=== PATIENT | female | born 1965 | race Caucasian/White ===

== ENCOUNTER 2016-11-30 11:32 | Inpatient (IN) | payer OTHER ==
[2016-11-30] MEDS ORDERED: ALBUMIN HUMAN 25%- 100ML 200 ML IV SCH (14:05)
[2016-11-30] MEDS: NS 1000 ML 1,000 ML IV SCH (14:36)
[2016-11-30] MEDS: LASIX IVP SCH ×2 (14:37→20:32)
[2016-11-30 14:50] LABS: BILIRUBIN,URINE NEGATIVE (NEGATIVE); BLOOD/HEMOGLOBIN,URINE NEGATIVE (NEGATIVE); GLUCOSE, URINE NEGATIVE (NEGATIVE); KETONES,URINE NEGATIVE (NEGATIVE); LEUKOCYTE ESTERASE ,URINE NEGATIVE (NEGATIVE); NITRITES,URINE NEGATIVE (NEGATIVE); PROTEIN,URINE NEGATIVE (NEGATIVE); UROBILINOGEN,URINE NORMAL (NORMAL)
[2016-11-30 14:54] LABS: BASOPHILS % (AUTO) 0.6 % (0.2-1.0); EOSINOPHILS # (AUTO) 0.1 x10^3/uL (0.0-0.2); EOSINOPHILS % (AUTO) 3.8 % (0.9-2.9); HEMATOCRIT 37.4 % (36.0-47.0); HEMOGLOBIN 12.5 g/dL (12.0-16.0); LYMPHOCYTES % (AUTO) 28.3 % (21.0-51.0); MEAN CORPUSCULAR HEMOGLOBIN 28.6 pg (27.0-34.0); MEAN CORPUSCULAR HGB CONC 33.4 g/dL (33.0-35.0); MEAN CORPUSCULAR VOLUME 85.6 fL (80.0-100.0); MEAN PLATELET VOLUME 10.6 fL (7.4-11.0); MONOCYTES # (AUTO) 0.4 x10^3/uL (0.3-0.8); MONOCYTES % (AUTO) 12.4 % (0.0-13.0); NEUTROPHILS # (AUTO) 1.9 x10^3/uL (2.2-4.8); NEUTROPHILS % (AUTO) 54.9 % (42.0-75.0); PLATELET COUNT 182 X10^3/uL (150.0-450.0); RED BLOOD COUNT 4.37 X10^6/uL (3.5-5.4); RED CELL DISTRIBUTION WIDTH 14.9 % (11.6-16.5); WHITE BLOOD COUNT 3.4 X10^3/uL (3.6-10.0)
[2016-11-30 15:04] LABS: APPEARANCE,URINE CLEAR (CLEAR); BACTERIA,URINE TRACE /HPF (NEGATIVE); COLOR,URINE YELLOW (YELLOW); MUCUS,URINE FEW /HPF (NEGATIVE); RBC,URINE NONE SEEN /HPF (NEGATIVE); SQUAMOUS EPITHELIAL CELL,UR FEW /HPF (NEGATIVE)
[2016-11-30 15:08] LABS: ALANINE AMINOTRANSFERASE 44 Units/L (12-78); ALBUMIN 3.2 g/dL (3.4-5.0); ALKALINE PHOSPHATASE 159 Units/L (46-116); ASPARTATE AMINO TRANSFERASE 27 Units/L (15-37); BLOOD UREA NITROGEN 20 mg/dL (7-18); CALCIUM 7.9 mg/dL (8.5-10.1); CARBON DIOXIDE 31.3 mmol/L (21-32); CHLORIDE 109 mmol/L (98-107); COR CA(FOR HYPOALB) 8.5 mg/dL (8.5-10.1); GLUCOSE 100 mg/dL (65-99); SODIUM 145 mmol/L (136-145); TOTAL PROTEIN 6.4 g/dL (6.4-8.2); eGFR BLACK RACES 56 (>60); eGFR NON BLACK RACES 46 (>60)
[2016-11-30 15:40] VITALS: BMI 37.1
[2016-11-30] MEDS: PATIENT'S HOME MEDICATION PO SCH (20:32)
[2016-11-30] MEDS: REQUIP PO SCH (20:32)
[2016-11-30] MEDS: MICRO K EXTEN CAP 10 MEQ PO SCH (20:32)
[2016-11-30] MEDS: NEURONTIN CAP 300 MG PO SCH (22:00)
[2016-12-01] MEDS: NS 1000 ML 1,000 ML IV SCH ×2 (04:52→21:39)
[2016-12-01 05:27] LABS: BASOPHILS % (AUTO) 0.4 % (0.2-1.0); EOSINOPHILS # (AUTO) 0.1 x10^3/uL (0.0-0.2); EOSINOPHILS % (AUTO) 4.1 % (0.9-2.9); HEMATOCRIT 35.5 % (36.0-47.0); HEMOGLOBIN 11.8 g/dL (12.0-16.0); LYMPHOCYTES # (AUTO) 1.3 X10^3/uL (1.3-2.9); LYMPHOCYTES % (AUTO) 38.9 % (21.0-51.0); MEAN CORPUSCULAR HEMOGLOBIN 28.9 pg (27.0-34.0); MEAN CORPUSCULAR HGB CONC 33.3 g/dL (33.0-35.0); MEAN CORPUSCULAR VOLUME 86.8 fL (80.0-100.0); MEAN PLATELET VOLUME 10.5 fL (7.4-11.0); MONOCYTES # (AUTO) 0.4 x10^3/uL (0.3-0.8); MONOCYTES % (AUTO) 12.7 % (0.0-13.0); NEUTROPHILS # (AUTO) 1.4 x10^3/uL (2.2-4.8); NEUTROPHILS % (AUTO) 43.9 % (42.0-75.0); PLATELET COUNT 165 X10^3/uL (150.0-450.0); RED BLOOD COUNT 4.08 X10^6/uL (3.5-5.4); RED CELL DISTRIBUTION WIDTH 14.8 % (11.6-16.5); WHITE BLOOD COUNT 3.2 X10^3/uL (3.6-10.0)
[2016-12-01 05:38] LABS: ALANINE AMINOTRANSFERASE 35 Units/L (12-78); ALBUMIN 3.3 g/dL (3.4-5.0); ALKALINE PHOSPHATASE 137 Units/L (46-116); ASPARTATE AMINO TRANSFERASE 26 Units/L (15-37); BLOOD UREA NITROGEN 23 mg/dL (7-18); CALCIUM 7.9 mg/dL (8.5-10.1); CARBON DIOXIDE 31.8 mmol/L (21-32); CHLORIDE 110 mmol/L (98-107); COR CA(FOR HYPOALB) 8.5 mg/dL (8.5-10.1); CREATININE 1.17 mg/dL (0.55-1.02); GLUCOSE 98 mg/dL (65-99); SODIUM 145 mmol/L (136-145); TOTAL PROTEIN 6.1 g/dL (6.4-8.2); eGFR BLACK RACES > 60 (>60); eGFR NON BLACK RACES 52 (>60)
[2016-12-01] MEDS: SYNTHROID 75 mcg TAB PO SCH (06:03)
[2016-12-01] MEDS: NEURONTIN CAP 300 MG PO SCH ×3 (06:03→21:31)
[2016-12-01] MEDS: PATIENT'S HOME MEDICATION PO SCH ×2 (08:09→21:31)
[2016-12-01] MEDS: MICRO K EXTEN CAP 10 MEQ PO SCH ×2 (08:09→21:31)
[2016-12-01] MEDS: LASIX IVP SCH ×2 (08:10→21:30)
[2016-12-01] MEDS: ALBUMIN HUMAN 25%- 100ML 100 ML IV SCH (08:10)
--- NOTE | 2016-12-01 11:32 | DR.UPDATE ---
H&P Update History and Physical Update: WAS SEEN IN OUR OFFICE ON 11/30/16. A H&P WAS COMPLETED PRIOR TO ADMISSION. SHE HAS BEEN SEEN AND EXAMINED WITH NO CHANGES NOTED. Changes noted: NO Yes with the following:
--- NOTE | 2016-12-01 11:43 | PCM.PROG ---
Progress Note - Progress Note for Day of Date: 12/01/16 - Subjective Subjective: WAS ADMITTED FROM OUR OFFICE YESTERDAY FOR ANASARCA. SHE HAS A HISTORY OF METASTATIC LUNG CANCER. SHE IS ALERT AND ORIENTED, IN BED, ON MORNING ROUNDS. SHE IS NOTED WITH COMPLAINTS OF BILATERAL LEG PAIN AND SWELLING. ON EXAMINATION, BILATERAL LEGS ARE NOTED WITH EDEMA AND TENDERNESS TO TOUCH. LUNGS ARE CLEAR TO AUSCULTATION. VITALS THIS AM ARE 97.7-53-19-94%-93/ 46. CBC WNL EXCEPT WBC 3.2, HGB 11.8, HCT 35.5. CMP WNL EXCEPT CHLORIDE 110, BUN 23, CREATININE 1.17, GFR 52, CALCIUM 7.9, ALKALINE PHOSPHATASE 137, CRP 8.60 , TOTAL PROTEIN 6.1, ALBUMIN 3.3. WE WILL CHECK A BILATERAL VENOUS DOPPLER, CHECK SED RATE AND CRP. WE WILL RECHECK CBC AND CMP IN AM AND FOLLOW UP WITH PATIENT. - Past Medical Family Social History Past Med/Fam/Surg Hx: No changes since H&P Allergies: Allergies No Known Drug Allergies Allergy (Verified 11/30/16 15:15) - Review of Systems ROS: No change since H&P - Vital Signs and I&O's Vital Signs: Temperature 97.7 F Pulse Rate [Right Brachial] 52 Respiratory Rate 20 Blood Pressure [Right Arm] 125/53 Blood Pressure 162/84 O2 Sat by Pulse Oximetry 96 Intake and Output: Intake & Output 11/28/16 11/29/16 11/30/16 12/01/16 11:59 11:59 11:59 11:59 Intake Total 712 Output Total 200 Balance 512 - Physical Exam Oriented: Normal. negative: Time, Person, Place, Not Oriented, Unable to test, Other Eyes: Normal. negative: Blurred Vision, Diplopia, Discharge, Pain, Redness, Photophobia, Other Ear: Normal. negative: Right, Left, Swelling, Ecchymosis, Hemotypanum, Abrasion , Laceration Nose: Normal. negative: Injected, Discharge, Blood, Other Throat: Normal. negative: Tonsillar Hypertrophy, Red, Exudate, Dry, Other Respiratory: Normal. negative: Right, Left, Generalized, Superior, Inferior, Diminished, Wheezes, Rales, Rhonchi, OTHER Cardiovascular: Edema. negative: Normal, Tachycardia, Bradycardia, Irregular, S3, S4, Systolic, Diastolic, Murmur, Other : Normal. negative: Dysuria, Hematuria, Frequency, Discharge, Testicular Pain , Bleeding, , Other Auscultation: Bowel Sounds: Normal. negative: Bruit, Absent, Increased, Decreased, High Pitched, Other Palpation: Normal. negative: Spleen Enlarged, Liver Enlarged, Mass Pulsatile, Other Tenderness: Normal. negative: Diffuse, RUQ, RLQ, LUQ, LLQ, Epigastric, Periumbilical, Suprapubic, Mild, Moderate, Severe, Rebound, Guarding, Rigidity, Other Skin: Normal. negative: Decreased Turgur, Rash, Papular, Macular, Maculopapular , Vesicular, Pustular, Petechial, Red, Tender, Hot, Diaphoresis, Wound, Bruising , Ecchymosis, Other Musculoskeletal: Right, Left, Leg, Swelling, Tender. negative: Normal, Shoulder , Clavicle, Arm, Elbow, Forearm, Wrist, Hand, Hip, Thigh, Knee, Ankle, Foot, Back:Thoracic, Back:Lumbar, Back:Midline, Back:Paraspinous, Pelvis, Deformity, Pulse Deficit, Motor Deficit, Sensory Deficit, Instability, Crepitance Psychiatric: Normal. negative: Anxiety, Depression, Agitation, Other Mood Description: Calm. negative: Angry, Apathetic, Depressed, Fearful, Flat, Happy, Hostile, Sad, Suspicious, Withdrawn, Anxious, Appropriate, Labile Affect: Normal. negative: Angry, Anxious, Depressed, Flat, Hysterical, Quiet, Violent Speech Pattern: Clear, Appropriate - Laboratory and Diagnostics Result Diagrams: 12/01/16 03:27 12/01/16 03:27 Labs: Laboratory WBC 3.2 X10^3/uL (3.6-10.0) L 12/01/16 03:27 RBC 4.08 X10^6/uL (3.5-5.4) 12/01/16 03:27 Hgb 11.8 g/dL (12.0-16.0) L 12/01/16 03:27 Hct 35.5 % (36.0-47.0) L 12/01/16 03:27 MCV 86.8 fL (80.0-100.0) 12/01/16 03:27 MCH 28.9 pg (27.0-34.0) 12/01/16 03:27 MCHC 33.3 g/dL (33.0-35.0) 12/01/16 03:27 RDW 14.8 % (11.6-16.5) 12/01/16 03:27 Plt Count 165 X10^3/uL (150.0-450.0) 12/01/16 03:27 MPV 10.5 fL (7.4-11.0) 12/01/16 03:27 Neut % 43.9 % (42.0-75.0) 12/01/16 03:27 Lymph % 38.9 % (21.0-51.0) 12/01/16 03:27 [place] % 12.7 % (0.0-13.0) 12/01/16 03:27 Eos % 4.1 % (0.9-2.9) H 12/01/16 03:27 Baso % 0.4 % (0.2-1.0) 12/01/16 03:27 Neut # 1.4 x10^3/uL (2.2-4.8) L 12/01/16 03:27 Lymph # 1.3 X10^3/uL (1.3-2.9) 12/01/16 03:27 [place] # 0.4 x10^3/uL (0.3-0.8) 12/01/16 03:27 Eos # 0.1 x10^3/uL (0.0-0.2) 12/01/16 03:27 Baso # 0.0 X10^3/uL (0.0-0.1) 12/01/16 03:27 Absolute Nucleated RBC 0.1 /100WBC 12/01/16 03:27 ESR 8 MM/HOUR (0-20) 12/01/16 10:00 Sodium 145 mmol/L (136-145) 12/01/16 03:27 Corrected Sodium TNP 12/01/16 03:27 Potassium 4.3 mmol/L (3.5-5.1) 12/01/16 03:27 Chloride 110 mmol/L (98-107) H 12/01/16 03:27 Carbon Dioxide 31.8 mmol/L (21-32) 12/01/16 03:27 BUN 23 mg/dL (7-18) H 12/01/16 03:27 Creatinine 1.17 mg/dL (0.55-1.02) H 12/01/16 03:27 Est GFR (MDRD) Af Amer > 60 (>60) 12/01/16 03:27 Est GFR (MDRD) Non-Af 52 (>60) L 12/01/16 03:27 Glucose 98 mg/dL (65-99) 12/01/16 03:27 Calcium 7.9 mg/dL (8.5-10.1) L 12/01/16 03:27 Corrected Calcium 8.5 mg/dL (8.5-10.1) 12/01/16 03:27 Total Bilirubin 0.30 mg/dL (0.2-1.0) 12/01/16 03:27 AST 26 Units/L (15-37) 12/01/16 03:27 ALT 35 Units/L (12-78) 12/01/16 03:27 Alkaline Phosphatase 137 Units/L (46-116) H 12/01/16 03:27 C-Reactive Protein 8.60 mg/L (0-3.0) H 12/01/16 10:00 Total Protein 6.1 g/dL (6.4-8.2) L 12/01/16 03:27 Albumin 3.3 g/dL (3.4-5.0) L 12/01/16 03:27 Globulin 2.8 g/dL (2.5-4.5) 12/01/16 03:27 Albumin/Globulin Ratio 1.2 Ratio (1.1-2.1) 12/01/16 03:27 Specimen Type Clean catch urine 11/30/16 14:37 Urine Color Yellow (YELLOW) 11/30/16 14:37 Urine Appearance Clear (CLEAR) 11/30/16 14:37 Urine pH 5.0 (5.0 - 8.0) 11/30/16 14:37 Ur Specific [place] 1.015 (1.000-1.030) 11/30/16 14:37 Urine Protein Negative (NEGATIVE) 11/30/16 14:37 Urine Glucose (UA) Negative (NEGATIVE) 11/30/16 14:37 Urine Ketones Negative (NEGATIVE) 11/30/16 14:37 Urine Occult Blood Negative (NEGATIVE) 11/30/16 14:37 Urine Nitrite Negative (NEGATIVE) 11/30/16 14:37 Urine Bilirubin Negative (NEGATIVE) 11/30/16 14:37 Urine Urobilinogen Normal (NORMAL) 11/30/16 14:37 Ur Leukocyte Esterase Negative (NEGATIVE) 11/30/16 14:37 Urine RBC None seen /HPF (NEGATIVE) 11/30/16 14:37 Urine WBC None seen /HPF (NEGATIVE) 11/30/16 14:37 Ur Squamous Epith Cells Few /HPF (NEGATIVE) 11/30/16 14:37 Urine Bacteria Trace /HPF (NEGATIVE) 11/30/16 14:37 Urine Mucus Few /HPF (NEGATIVE) 11/30/16 14:37 Ur Culture Indicated? No/not indicated 11/30/16 14:37 - Plan (1) Anasarca Status: Acute Plan: CONTINUE ALBUMIN 25% DAILY, CONTINUE TO MONITOR PATIENT AND LABS (2) Hypothyroidism Status: Chronic Qualifiers: Hypothyroidism type: acquired Qualified Code(s): E03.9 - Hypothyroidism, unspecified Plan: CONTINUE SYNTHROID 75MCG DAILY, CONTINUE TO MONITOR (3) Lung cancer metastatic to bone Status: Chronic Plan: CONTINUE XALKORI 250MG BID, CONTINUE TO MONITOR
[2016-12-01] MEDS ORDERED: K-DUR TAB 20 MEQ PO PRN (12:44)
[2016-12-01] MEDS ORDERED: K-RIDER 10 MEQ/NS 100 ML 10 MEQ/100 ML BAG IV PRN (12:44)
[2016-12-01] MEDS ORDERED: K-LYTE EFFERVESCENT PO PRN (12:44)
[2016-12-01] MEDS ORDERED: POTASSIUM CHLORIDE LIQ 20 MEQ UDC PO PRN (12:44)
--- NOTE | 2016-12-01 16:43 | VAS ---
HISTORY: Bilateral leg edema. Study: Bilateral lower extremity ultrasound. Comparison: Bilateral lower extremity ultrasound dated November 04, 2014. TECHNIQUE: Multiple yu scale and color flow Doppler images of the deep venous system were obtaine d of the right and left lower extremity. FINDINGS: The deep venous system of the right and left lower extremities were evaluated from the level of the common femoral vein through the popliteal vein. Normal color flow and augmentation can be observed. In addition, normal compression is seen throughout the deep venous system. IMPRESSION: 1. Negative for DVT. Reported By:
[2016-12-01] MEDS: REQUIP PO SCH (21:31)
[2016-12-02] MEDS: NS 1000 ML 1,000 ML IV SCH (04:48)
[2016-12-02] MEDS: SYNTHROID 75 mcg TAB PO SCH (06:02)
[2016-12-02] MEDS: NEURONTIN CAP 300 MG PO SCH ×3 (06:02→21:43)
[2016-12-02 06:22] LABS: BASOPHILS % (AUTO) 0.4 % (0.2-1.0); EOSINOPHILS # (AUTO) 0.2 x10^3/uL (0.0-0.2); EOSINOPHILS % (AUTO) 4.6 % (0.9-2.9); HEMATOCRIT 35.7 % (36.0-47.0); HEMOGLOBIN 12.2 g/dL (12.0-16.0); LYMPHOCYTES # (AUTO) 1.2 X10^3/uL (1.3-2.9); LYMPHOCYTES % (AUTO) 32.3 % (21.0-51.0); MEAN CORPUSCULAR HEMOGLOBIN 28.9 pg (27.0-34.0); MEAN CORPUSCULAR HGB CONC 34.1 g/dL (33.0-35.0); MEAN CORPUSCULAR VOLUME 84.9 fL (80.0-100.0); MEAN PLATELET VOLUME 10.4 fL (7.4-11.0); MONOCYTES # (AUTO) 0.5 x10^3/uL (0.3-0.8); MONOCYTES % (AUTO) 14.5 % (0.0-13.0); NEUTROPHILS # (AUTO) 1.8 x10^3/uL (2.2-4.8); NEUTROPHILS % (AUTO) 48.2 % (42.0-75.0); PLATELET COUNT 167 X10^3/uL (150.0-450.0); RED CELL DISTRIBUTION WIDTH 14.4 % (11.6-16.5); WHITE BLOOD COUNT 3.6 X10^3/uL (3.6-10.0)
[2016-12-02 06:46] LABS: ALANINE AMINOTRANSFERASE 36 Units/L (12-78); ALBUMIN 3.5 g/dL (3.4-5.0); ALKALINE PHOSPHATASE 129 Units/L (46-116); ASPARTATE AMINO TRANSFERASE 23 Units/L (15-37); BLOOD UREA NITROGEN 17 mg/dL (7-18); CARBON DIOXIDE 30.3 mmol/L (21-32); CHLORIDE 109 mmol/L (98-107); CREATININE 1.17 mg/dL (0.55-1.02); GLUCOSE 98 mg/dL (65-99); SODIUM 144 mmol/L (136-145); TOTAL PROTEIN 6.2 g/dL (6.4-8.2); eGFR BLACK RACES > 60 (>60); eGFR NON BLACK RACES 52 (>60)
[2016-12-02 07:03] LABS: ERYTHROCYTE SEDIMENTATION RATE 8 MM/HOUR (0-20)
[2016-12-02] MEDS: MICRO K EXTEN CAP 10 MEQ PO SCH ×2 (09:17→20:42)
[2016-12-02] MEDS: ALBUMIN HUMAN 25%- 100ML 100 ML IV SCH (09:18)
[2016-12-02] MEDS: PATIENT'S HOME MEDICATION PO SCH ×2 (09:19→20:38)
[2016-12-02] MEDS: LASIX IVP SCH (11:00)
--- NOTE | 2016-12-02 12:09 | PCM.PROG ---
Progress Note - Progress Note for Day of Date: 12/02/16 - Subjective Subjective: WAS ADMITTED FROM OUR OFFICE FOR ANASARCA. SHE HAS A HISTORY OF METASTATIC LUNG CANCER. SHE IS ALERT AND ORIENTED, IN BED, ON MORNING ROUNDS. SHE HAS NO COMPLAINTS UPON ROUNDS. ON EXAMINATION, BILATERAL LEGS ARE NOTED WITH EDEMA THAT HAS DECREASED SINCE YESTERDAY. LUNGS ARE CLEAR TO AUSCULTATION. VITALS THIS AM ARE 98.7-56-18-92%-95/52. CBC WNL EXCEPT WBC 3.6 , HCT 35.7. CMP WNL EXCEPT CHLORIDE 109, CREATININE 1.17, GFR 52, CALCIUM 8.0, ALKALINE PHOSPHATASE 128, CRP 8.40, TOTAL PROTEIN 6.2, ALBUMIN 3.5. BILATERAL VENOUS DOPPLER NEGATIVE FOR DVT. WE WILL CONTINUE WITH CURRENT PLAN OF CAR, RECHECK CBC AND CMP IN AM, AND FOLLOW UP WITH PATIENT. - Past Medical Family Social History Past Med/Fam/Surg Hx: No changes since H&P Allergies: Allergies No Known Drug Allergies Allergy (Verified 11/30/16 15:15) - Review of Systems ROS: No change since H&P - Vital Signs and I&O's Vital Signs: Temperature 97.9 F Pulse Rate [Left Brachial] 56 Pulse Rate [Right Brachial] 52 Respiratory Rate 18 Blood Pressure [Left Arm] 104/54 Blood Pressure [Right Arm] 90/56 Blood Pressure 162/84 O2 Sat by Pulse Oximetry 93 Intake and Output: Intake & Output 11/30/16 12/01/16 12/02/16 12/03/16 11:59 11:59 11:59 11:59 Intake Total 712 1510 Output Total 200 Balance 512 1510 - Physical Exam Oriented: Normal. negative: Time, Person, Place, Not Oriented, Unable to test, Other Eyes: Normal. negative: Blurred Vision, Diplopia, Discharge, Pain, Redness, Photophobia, Other Ear: Normal. negative: Right, Left, Swelling, Ecchymosis, Hemotypanum, Abrasion , Laceration Nose: Normal. negative: Injected, Discharge, Blood, Other Throat: Normal. negative: Tonsillar Hypertrophy, Red, Exudate, Dry, Other Respiratory: Normal. negative: Right, Left, Generalized, Superior, Inferior, Diminished, Wheezes, Rales, Rhonchi, OTHER Cardiovascular: Edema. negative: Normal, Tachycardia, Bradycardia, Irregular, S3, S4, Systolic, Diastolic, Murmur, Other : Normal. negative: Dysuria, Hematuria, Frequency, Discharge, Testicular Pain , Bleeding, , Other Auscultation: Bowel Sounds: Normal. negative: Bruit, Absent, Increased, Decreased, High Pitched, Other Palpation: Normal Tenderness: Normal. negative: Diffuse, RUQ, RLQ, LUQ, LLQ, Epigastric, Periumbilical, Suprapubic, Mild, Moderate, Severe, Rebound, Guarding, Rigidity, Other Skin: Normal. negative: Decreased Turgur, Rash, Papular, Macular, Maculopapular , Vesicular, Pustular, Petechial, Red, Tender, Hot, Diaphoresis, Wound, Bruising , Ecchymosis, Other Musculoskeletal: Right, Left, Leg, Swelling, Tender. negative: Normal, Shoulder , Clavicle, Arm, Elbow, Forearm, Wrist, Hand, Hip, Thigh, Knee, Ankle, Foot, Back:Thoracic, Back:Lumbar, Back:Midline, Back:Paraspinous, Pelvis, Deformity, Pulse Deficit, Motor Deficit, Sensory Deficit, Instability, Crepitance Psychiatric: Normal. negative: Anxiety, Depression, Agitation, Other Mood Description: Calm. negative: Angry, Apathetic, Depressed, Fearful, Flat, Happy, Hostile, Sad, Suspicious, Withdrawn, Anxious, Appropriate, Labile Affect: Normal. negative: Angry, Anxious, Depressed, Flat, Hysterical, Quiet, Violent Speech Pattern: Clear, Appropriate - Laboratory and Diagnostics Result Diagrams: 12/02/16 05:00 12/02/16 05:00 Labs: Laboratory WBC 3.6 X10^3/uL (3.6-10.0) 12/02/16 05:00 RBC 4.20 X10^6/uL (3.5-5.4) 12/02/16 05:00 Hgb 12.2 g/dL (12.0-16.0) 12/02/16 05:00 Hct 35.7 % (36.0-47.0) L 12/02/16 05:00 MCV 84.9 fL (80.0-100.0) 12/02/16 05:00 MCH 28.9 pg (27.0-34.0) 12/02/16 05:00 MCHC 34.1 g/dL (33.0-35.0) 12/02/16 05:00 RDW 14.4 % (11.6-16.5) 12/02/16 05:00 Plt Count 167 X10^3/uL (150.0-450.0) 12/02/16 05:00 MPV 10.4 fL (7.4-11.0) 12/02/16 05:00 Neut % 48.2 % (42.0-75.0) 12/02/16 05:00 Lymph % 32.3 % (21.0-51.0) 12/02/16 05:00 [place] % 14.5 % (0.0-13.0) H 12/02/16 05:00 Eos % 4.6 % (0.9-2.9) H 12/02/16 05:00 Baso % 0.4 % (0.2-1.0) 12/02/16 05:00 Neut # 1.8 x10^3/uL (2.2-4.8) L 12/02/16 05:00 Lymph # 1.2 X10^3/uL (1.3-2.9) L 12/02/16 05:00 [place] # 0.5 x10^3/uL (0.3-0.8) 12/02/16 05:00 Eos # 0.2 x10^3/uL (0.0-0.2) 12/02/16 05:00 Baso # 0.0 X10^3/uL (0.0-0.1) 12/02/16 05:00 Absolute Nucleated RBC 0.2 /100WBC 12/02/16 05:00 ESR 8 MM/HOUR (0-20) 12/02/16 05:00 Sodium 144 mmol/L (136-145) 12/02/16 05:00 Corrected Sodium TNP 12/02/16 05:00 Potassium 4.1 mmol/L (3.5-5.1) 12/02/16 05:00 Chloride 109 mmol/L (98-107) H 12/02/16 05:00 Carbon Dioxide 30.3 mmol/L (21-32) 12/02/16 05:00 BUN 17 mg/dL (7-18) 12/02/16 05:00 Creatinine 1.17 mg/dL (0.55-1.02) H 12/02/16 05:00 Est GFR (MDRD) Af Amer > 60 (>60) 12/02/16 05:00 Est GFR (MDRD) Non-Af 52 (>60) L 12/02/16 05:00 Glucose 98 mg/dL (65-99) 12/02/16 05:00 Calcium 8.0 mg/dL (8.5-10.1) L 12/02/16 05:00 Corrected Calcium TNP 12/02/16 05:00 Total Bilirubin 0.30 mg/dL (0.2-1.0) 12/02/16 05:00 AST 23 Units/L (15-37) 12/02/16 05:00 ALT 36 Units/L (12-78) 12/02/16 05:00 Alkaline Phosphatase 129 Units/L (46-116) H 12/02/16 05:00 C-Reactive Protein 8.40 mg/L (0-3.0) H 12/02/16 05:00 Total Protein 6.2 g/dL (6.4-8.2) L 12/02/16 05:00 Albumin 3.5 g/dL (3.4-5.0) 12/02/16 05:00 Globulin 2.7 g/dL (2.5-4.5) 12/02/16 05:00 Albumin/Globulin Ratio 1.3 Ratio (1.1-2.1) 12/02/16 05:00 Specimen Type Clean catch urine 11/30/16 14:37 Urine Color Yellow (YELLOW) 11/30/16 14:37 Urine Appearance Clear (CLEAR) 11/30/16 14:37 Urine pH 5.0 (5.0 - 8.0) 11/30/16 14:37 Ur Specific [place] 1.015 (1.000-1.030) 11/30/16 14:37 Urine Protein Negative (NEGATIVE) 11/30/16 14:37 Urine Glucose (UA) Negative (NEGATIVE) 11/30/16 14:37 Urine Ketones Negative (NEGATIVE) 11/30/16 14:37 Urine Occult Blood Negative (NEGATIVE) 11/30/16 14:37 Urine Nitrite Negative (NEGATIVE) 11/30/16 14:37 Urine Bilirubin Negative (NEGATIVE) 11/30/16 14:37 Urine Urobilinogen Normal (NORMAL) 11/30/16 14:37 Ur Leukocyte Esterase Negative (NEGATIVE) 11/30/16 14:37 Urine RBC None seen /HPF (NEGATIVE) 11/30/16 14:37 Urine WBC None seen /HPF (NEGATIVE) 11/30/16 14:37 Ur Squamous Epith Cells Few /HPF (NEGATIVE) 11/30/16 14:37 Urine Bacteria Trace /HPF (NEGATIVE) 11/30/16 14:37 Urine Mucus Few /HPF (NEGATIVE) 11/30/16 14:37 Ur Culture Indicated? No/not indicated 11/30/16 14:37 - Plan (1) Anasarca Status: Acute Plan: CONTINUE ALBUMIN 25% DAILY, CONTINUE TO MONITOR PATIENT AND LABS (2) Hypothyroidism Status: Chronic Qualifiers: Hypothyroidism type: acquired Qualified Code(s): E03.9 - Hypothyroidism, unspecified Plan: CONTINUE SYNTHROID 75MCG DAILY, CONTINUE TO MONITOR (3) Lung cancer metastatic to bone Status: Chronic Plan: CONTINUE XALKORI 250MG BID, CONTINUE TO MONITOR
[2016-12-02] MEDS: LASIX PO SCH (20:41)
[2016-12-02] MEDS: REQUIP PO SCH (20:42)
[2016-12-03 05:17] LABS: ALANINE AMINOTRANSFERASE 34 Units/L (12-78); ALBUMIN 3.6 g/dL (3.4-5.0); ALKALINE PHOSPHATASE 127 Units/L (46-116); ASPARTATE AMINO TRANSFERASE 19 Units/L (15-37); BLOOD UREA NITROGEN 20 mg/dL (7-18); CALCIUM 7.7 mg/dL (8.5-10.1); CARBON DIOXIDE 29.4 mmol/L (21-32); CHLORIDE 111 mmol/L (98-107); CREATININE 1.08 mg/dL (0.55-1.02); GLUCOSE 109 mg/dL (65-99); SODIUM 145 mmol/L (136-145); TOTAL PROTEIN 6.3 g/dL (6.4-8.2); eGFR BLACK RACES > 60 (>60); eGFR NON BLACK RACES 57 (>60)
[2016-12-03 05:35] LABS: BASOPHILS % (AUTO) 0.6 % (0.2-1.0); EOSINOPHILS # (AUTO) 0.2 x10^3/uL (0.0-0.2); EOSINOPHILS % (AUTO) 4.7 % (0.9-2.9); HEMATOCRIT 35.4 % (36.0-47.0); HEMOGLOBIN 11.8 g/dL (12.0-16.0); LYMPHOCYTES # (AUTO) 1.2 X10^3/uL (1.3-2.9); LYMPHOCYTES % (AUTO) 32.2 % (21.0-51.0); MEAN CORPUSCULAR HEMOGLOBIN 28.5 pg (27.0-34.0); MEAN CORPUSCULAR HGB CONC 33.4 g/dL (33.0-35.0); MEAN CORPUSCULAR VOLUME 85.4 fL (80.0-100.0); MEAN PLATELET VOLUME 10.4 fL (7.4-11.0); MONOCYTES # (AUTO) 0.5 x10^3/uL (0.3-0.8); MONOCYTES % (AUTO) 14.3 % (0.0-13.0); NEUTROPHILS # (AUTO) 1.7 x10^3/uL (2.2-4.8); NEUTROPHILS % (AUTO) 48.2 % (42.0-75.0); PLATELET COUNT 172 X10^3/uL (150.0-450.0); RED BLOOD COUNT 4.14 X10^6/uL (3.5-5.4); RED CELL DISTRIBUTION WIDTH 14.6 % (11.6-16.5); WHITE BLOOD COUNT 3.6 X10^3/uL (3.6-10.0)
[2016-12-03 05:42] LABS: ERYTHROCYTE SEDIMENTATION RATE 7 MM/HOUR (0-20)
[2016-12-03] MEDS: NEURONTIN CAP 300 MG PO SCH (06:05)
[2016-12-03] MEDS: SYNTHROID 75 mcg TAB PO SCH (06:05)
[2016-12-03] MEDS: PATIENT'S HOME MEDICATION PO SCH ×2 (06:06→09:00)
[2016-12-03 08:32] VITALS: BP 91/48
[2016-12-03] MEDS: MICRO K EXTEN CAP 10 MEQ PO SCH (08:59)
[2016-12-03] MEDS: LASIX PO SCH (09:00)
[2016-12-03] MEDS: ALBUMIN HUMAN 25%- 100ML 100 ML IV SCH (09:01)
[2016-12-03] MEDS ORDERED: TORADOL 60 MG VIAL IM ONE (09:11)
--- NOTE | 2016-12-05 14:48 | DR.CARTERD ---
- Admission Date Date of Admission: 11/30/16 - Admission Diagnoses Admission Diagnosis: (1) Anasarca (2) Hypothyroidism (3) Lung cancer metastatic to bone - Discharge Date Discharge Date: 12/03/16 - Discharge Diagnoses Discharge Diagnosis: (1) Anasarca (2) Hypothyroidism (3) Lung cancer metastatic to bone - Hospital Course Hospital Course: IS A 51 YEAR OLD PATIENT OF OURS WHO WAS A DIRECT ADMISSION FROM OUR OFFICE WITH DIAGNOSIS OF ANASARCA. PATIENT HAS A HISTORY OF METASTATIC LUNG CANCER AND IS CURRENTLY RECEIVING CHEMO TREATMENTS UNDER THE CARE OF . PATIENT REPORTED WITH GENERALIZED SWELLING X 1 WEEK. SHE REPORTED TAKING LASIX AT HOME WITH NO IMPROVEMENT IN SWELLING. WE OBTAINED LABS AND XRAY IN OFFICE. XRAY WAS CLEAR. LABS REPORTED SODIUM 145, POTASSIUM 5.3, CHLORIDE 107, CALCIUM 8.5, T4 0.79, TSH 6.25. WE ADMITTED PATIENT FOR FURTHER TREATMENT AND EVALUATION. WE STARTED LASIX 40MG IV BID AND ALBUMIN 25% DAILY. WE OBTAINED LABS ON ADMISSION. CBC WNL EXCEPT WBC 3.4. CMP WNL EXCEPT CHLORIDE 109, BUN 20, CREATININE 1.30, GLUCOSE 100, CALCIUM 7.9, ALKALINE PHOSPHATASE 159, ALBUMIN 3.2. URINALYSIS NEGATIVE. DAY 2 OF STAY: PATIENT CONTINUED WITH COMPLAINTS OF BILATERAL LEG PAIN AND SWELLING. BILATERAL LEGS WERE NOTED WITH EDEMA AND TENDERNESS TO TOUCH. CBC WNL EXCEPT WBC 3.2, HGB 11.8, HCT 35.5. CMP WNL EXCEPT CHLORIDE 110, BUN 23, CREATININE 1.17, GFR 52, CALCIUM 7.9, ALKALINE PHOSPHATASE 137, CRP 8.60, TOTAL PROTEIN 6.1, ALBUMIN 3.3. WE OBTAINED A BILATERAL VENOUS DOPPLER, IT REPORTED NEGATIVE FOR DVT. WE CONTINUED TO MONITOR PATIENT. DAY 3 OF STAY: BILATERAL LEGS WERE NOTED WITH EDEMA THAT HAD DECREASED SINCE PREVIOUS DAY. CBC WNL EXCEPT WBC 3.6, HCT 35.7. CMP WNL EXCEPT CHLORIDE 109, CREATININE 1.17, GFR 52, CALCIUM 8.0, ALKALINE PHOSPHATASE 128, CRP 8.40, TOTAL PROTEIN 6.2, ALBUMIN 3.5. WE CONTINUED WITH CURRENT PLAN OF CARE AND MONITORED PATIENT. ON DAY OF DISCHARGE, PATIENT WAS ALERT AND ORIENTED WITH NO COMPLAINTS. SHE WAS SITTING UP IN BED WITH FAMILY AT BEDSIDE. BILATERAL LEG SWELLING WAS BACK TO PATIENT'S BASELINE. SHE WAS NOTED WITH NO COMPLAINTS. LUNGS CLEAR TO AUSCULTATION. VITALS WERE 98.5-55-18-92%-91/48. CBC WNL EXCEPT HGB 11.8, HCT 35.4. CMP WNL EXCEPT CHLORIDE 111, BUN 20, CREATININE 1.08, GLUCOSE 109, CALCIUM 7.7, ALKALINE PHOSPHATASE 127, CRP 7.80, TOTAL PROTEIN 6.3. WE PLANNED FOR DISCHARGE. INSTRUCTIONS FOR MEDICATIONS AND FOLLOW UP WERE DISCUSSED WITH PATIENT AND FAMILY. BOTH VERBALIZED UNDERSTANDING. PATIENT DISCHARGED TO HOME IN STABLE CONDITION WITH NEW PRESCRIPTIONS FOR DYAZIDE 1 CAPSULE DAILY AND INSTRUCTIONS FOR HER TO FOLLOW UP WITH US IN OFFICE. - Discharge Medications Discharge Medications: Crizotinib [Xalkori] 250 mg PO BID 11/30/16 [History] Gabapentin [NEURONTIN CAP 300 mg *] 1 tab PO TID 11/30/16 [History] Levothyroxine Sodium [SYNTHROID 75 mcg *] 1 tab PO DAILY 11/30/16 [History] Ropinirole HCl 1 tab PO HS 11/30/16 [History] Triamterene & Hydrochlorothiaz [Maxzide 37.5/25 mg] 1 cap PO QAM #30 cap [Rx]
== END 2016-12-03 10:50 | disposition home or self-care (01) | DRG 948 ==
LOC: MED/SURG 11:32
PROVIDERS: ADMIT Internal Medicine; ATTEND Internal Medicine
DX: R60.1 Generalized edema (principal); C34.90 Malignant neoplasm of unspecified part of unspecified bronchus or lung; C79.51 Secondary malignant neoplasm of bone; E03.8 Other specified hypothyroidism; I10 Essential (primary) hypertension; E78.2 Mixed hyperlipidemia; Z92.21 Personal history of antineoplastic chemotherapy; G47.33 Obstructive sleep apnea (adult) (pediatric); G25.81 Restless legs syndrome
CPT/HCPCS: 36415; 80053; 81001; 85025; 85652; 86140; 93970; 94760; A4222; P9047; J1885; J1940

== ENCOUNTER 2017-08-07 15:49 | Emergency (ER) | payer OTHER ==
[2017-08-07 15:55] VITALS: BP 140/66; BMI 38.4
--- NOTE | 2017-08-07 16:32 | DR.URIAD ---
HPI - Time Seen Time seen: 16:25 - PCP Primary Care Physician: JENNIFER HERNANDEZ - Complaint Chief Complaint Doctors Comments: Dyspnea x 3 weeks. associated wheezing and non -productive cough. Pt. with a known hx. of lung ca. She is s/p partial pneumonectomy and currently on chemo. tabs Chief Complaint:: PT C/O CCC, WHEEZING AND SOB AT NIGHT ,,BR Self Treatment fo Chief Complaint: PT C/O BEING ON WATER PILLS.... BR - Reviewed Nurses Notes Reviewed: Yes - Source History Provided: Patient - Mode of Arrival Mode of Arrival: Ambulatory - Timing Onset of Chief Complaint: 08/06/17 - Quality Shortness of Breath: Moderate PMH - PMH Past Medical History: Yes Past Medical History: Hypertension Past Medical History Comment: PT IS ON CHEMO, STAGE 4 LUNG CANCER . Past Surgical History: Yes Surgical History: Hysterectomy Past Surgical History Comment: SHOULDER RIGHT, LEFT LOWER LOBECTOMY, - Family History History of Family Medical Conditions: Yes Family Medical History: Cancer - Social History Does patient currently use any type of tobacco product: No Have you used tobacco products in the last 12 months: No Type of Tobacco Use: None Does any household member use tobacco: No Alcohol Use: None Do you use any recreational Drugs:: No Lives With: Family Lives Where: Home - infectious screening In the last 2 months have you had wt loss of >10#?: NO Have you had fever, night sweats or hemotysis?: No Have you traveled outside the country in the last 6 months?: No Isolation: Standard ROS - Review of Systems Constitutional: No Symptoms Reported Eyes: No Symptoms Reported ENTM: No Symptoms Reported Respiratoy: Non-Productive Cough, Wheezing Cardiovascular: No Symptoms Reported Gastrointestinal/Abdominal: No Symptoms Reported Genitourinary: No Symptoms Reported Neurological: No Symptoms Reported Musculoskeletal: No Symptoms Reported Integumentary: No Symptoms Reported Hematologic/Lymphatic: No Symptoms Reported Endocrine: No Symptoms Reported Psychiatric: No Symptoms Reported All Other Systems: Reviewed and Negative PE - Vital Signs Vitals: Temperature 99.0 F Pulse Rate 83 Respiratory Rate 20 Blood Pressure [Left Arm] 116/60 Blood Pressure [Right Arm] 91/48 Blood Pressure 140/66 O2 Sat by Pulse Oximetry 98 - General Limitations: No Limitations General Appearance: Alert, In No Apparent Distress - Head Head Exam: Normal Inspection - Eyes Eye exam: Normal Appearance - ENT ENT Exam: Normal Exam - Neck Neck Exam: Normal Inspection, Full ROM, Trachea Midline - Chest Chest Inspection: Normal Inspection, Symmetric Chest Wall Rise - Respiratory Respiratory Exam: Bilateral Wheezing (mild) - Cardiovascular Cardiovascular Exam: Regular Rate, Normal Rhythm, +S1, +S2 - Abdominal Exam Abdominal Exam: Normal Inspection, Normal Bowel Sounds, Soft - Extremeties Extremities Exam: Normal Inspection - Back Back Exam: Normal Inspection - Neurologic Neurological Exam: Alert, Oriented X3 - Psychiatric Psychiatric Exam: Normal Affect, Normal Mood - Skin Skin Exam: Warm, Dry, Intact, Normal Color Course - Education/Counseling Education/Counseling: Patient, Family, Education, Counseling Educated On: Treatment, Diagnosis, Prognosis, Needs for Follow Up ROR - Labs Reviewed Result Diagrams: 08/07/17 16:35 Laboratory: WBC 2.0 X10^3/uL (3.6-10.0) L 08/07/17 16:35 RBC 4.51 X10^6/uL (3.5-5.4) 08/07/17 16:35 Hgb 12.7 g/dL (12.0-16.0) 08/07/17 16:35 Hct 38.2 % (36.0-47.0) 08/07/17 16:35 MCV 84.7 fL (80.0-100.0) 08/07/17 16:35 MCH 28.3 pg (27.0-34.0) 08/07/17 16:35 MCHC 33.4 g/dL (33.0-35.0) 08/07/17 16:35 RDW 15.1 % (11.6-16.5) 08/07/17 16:35 Plt Count 172 X10^3/uL (150.0-450.0) 08/07/17 16:35 Plt Count Comment Adequate (ADEQUATE) 08/07/17 16:35 MPV 10.3 fL (7.4-11.0) 08/07/17 16:35 Neut % (Auto) 48.6 % (42.0-75.0) 08/07/17 16:35 Lymph % (Auto) 25.5 % (21.0-51.0) 08/07/17 16:35 [place] % (Auto) 18.9 % (0.0-13.0) H 08/07/17 16:35 Eos % (Auto) 6.1 % (0.9-2.9) H 08/07/17 16:35 Baso % (Auto) 0.9 % (0.2-1.0) 08/07/17 16:35 Neut # (Auto) 1.0 x10^3/uL (2.2-4.8) L 08/07/17 16:35 Lymph # (Auto) 0.5 X10^3/uL (1.3-2.9) L 08/07/17 16:35 [place] # (Auto) 0.4 x10^3/uL (0.3-0.8) 08/07/17 16:35 Eos # (Auto) 0.1 x10^3/uL (0.0-0.2) 08/07/17 16:35 Baso # (Auto) 0.0 X10^3/uL (0.0-0.1) 08/07/17 16:35 Absolute Nucleated RBC 0.0 /100WBC 08/07/17 16:35 Total Counted 100 08/07/17 16:35 Neutrophils % (Manual) 46 % (39-76) 08/07/17 16:35 Band Neutrophils % 3 % (0-10) 08/07/17 16:35 Lymphocytes % (Manual) 20 % (13-43) 08/07/17 16:35 Monocytes % (Manual) 23 % (4-9) H 08/07/17 16:35 Eosinophils % (Manual) 3 % (0-6) 08/07/17 16:35 Basophils % (Manual) 2 % (0-1) H 08/07/17 16:35 Atypical Lymphocytes 3 08/07/17 16:35 Plt Clumps, EDTA Many 08/07/17 16:35 Plt Morphology Comment Abnormal (NORMAL) A 08/07/17 16:35 RBC Morphology Normal (NORMAL) 08/07/17 16:35 Anisocytosis 1+ A 08/07/17 16:35 Influenza Type A (PCR) Negative (NEGATIVE) 08/07/17 17:30 Influenza Type B (PCR) Negative (NEGATIVE) 08/07/17 17:30 - XRAY XRAY Interpreted by: Radiologist (Non-specific Interstitial process LLL ) - Diagnosis Discharge Problem: Bronchitis - Discharge Plan Disposition: 01 HOME, SELF-CARE Condition: Stable - Follow ups/Referrals Follow ups/Referrals: Russell Coronado [Primary Care Provider] - 3 days - Instructions Instructions: Upper Respiratory Infection, Adult, [id number]
[2017-08-07] MEDS ORDERED: DUONEB 0.5 MG/3 MG NEB ONE (16:33)
[2017-08-07] MEDS ORDERED: DUONEB 0.5 MG/3 MG ONE (16:41)
[2017-08-07 16:51] LABS: BASOPHILS % (AUTO) 0.9 % (0.2-1.0); EOSINOPHILS # (AUTO) 0.1 x10^3/uL (0.0-0.2); EOSINOPHILS % (AUTO) 6.1 % (0.9-2.9); HEMATOCRIT 38.2 % (36.0-47.0); HEMOGLOBIN 12.7 g/dL (12.0-16.0); LYMPHOCYTES # (AUTO) 0.5 X10^3/uL (1.3-2.9); LYMPHOCYTES % (AUTO) 25.5 % (21.0-51.0); MEAN CORPUSCULAR HEMOGLOBIN 28.3 pg (27.0-34.0); MEAN CORPUSCULAR HGB CONC 33.4 g/dL (33.0-35.0); MEAN CORPUSCULAR VOLUME 84.7 fL (80.0-100.0); MEAN PLATELET VOLUME 10.3 fL (7.4-11.0); MONOCYTES # (AUTO) 0.4 x10^3/uL (0.3-0.8); MONOCYTES % (AUTO) 18.9 % (0.0-13.0); NEUTROPHILS % (AUTO) 48.6 % (42.0-75.0); PLATELET COUNT 172 X10^3/uL (150.0-450.0); RED BLOOD COUNT 4.51 X10^6/uL (3.5-5.4); RED CELL DISTRIBUTION WIDTH 15.1 % (11.6-16.5)
--- NOTE | 2017-08-07 16:56 | RAD ---
Examination: AP chest History: SOB and wheezing Comparison reference 08/28/2015, chest CT 06/01/2013 Findings: Borderline to mild cardiomegaly with clear right chest. Diffuse interstitial prominence lef t lower lung without evidence for consolidation, mass or pneumothorax. Impression: Interstitial process left lower lung is nonspecific. Review of prior history indicates th e patient is status post left lower lobectomy for lung carcinoma. The described findings may represen t residual scarring from this procedure. A more acute process is not excluded. Additional imaging wit h standard PA and lateral views would be helpful when condition permits. Reported By:
[2017-08-07] MEDS ORDERED: ROBITUSSIN AC PO ONE ×2 (17:27→18:47)
[2017-08-07] MEDS ORDERED: ROBITUSSIN AC ONE ×2 (17:29→18:44)
[2017-08-07 17:37] LABS: BAND NEUTROPHILS % 3 % (0-10); BASOPHILS % (MANUAL) 2 % (0-1); PLATELET MORPHOLOGY COMMENT ABNORMAL (NORMAL)
[2017-08-07 17:38] LABS: ANISOCYTOSIS 1+
[2017-08-07] MEDS ORDERED: ROCEPHIN VIAL 1 GM IM ONE (17:38)
[2017-08-07] MEDS ORDERED: ROCEPHIN VIAL 1 GM ONE (17:41)
[2017-08-07] MEDS ORDERED: XYLOCAINE 1 % (PLAIN) ONE (17:43)
== END 2017-08-07 18:47 | disposition home or self-care (01) ==
LOC: ER 15:57
DX: J40 Bronchitis, not specified as acute or chronic (principal)
CPT/HCPCS: 36415; 71045; 85025; 87502; 94640; 96372; 99282; 99283; J0696; J2001; J7620

== ENCOUNTER 2020-02-20 12:25 | Observation (INO) ==
[2020-02-20] MEDS ORDERED: NS 1000 ML 1,000 ML IV SCH (15:27)
[2020-02-20] MEDS ORDERED: NS 500 ML IV 500 ML IV ONE ×2 (15:27→15:36)
[2020-02-20] MEDS ORDERED: NS 1000 ML 1,000 ML ONE (15:36)
[2020-02-20 15:58] VITALS: BMI 43.9
[2020-02-20 16:30] LABS: BASOPHILS % (AUTO) 0.6 % (0.2-1.0); EOSINOPHILS # (AUTO) 0.1 x10^3/uL (0.0-0.2); EOSINOPHILS % (AUTO) 4.2 % (0.9-2.9); HEMATOCRIT 36.7 % (36.0-47.0); HEMOGLOBIN 11.6 g/dL (12.0-16.0); LYMPHOCYTES # (AUTO) 0.8 X10^3/uL (1.3-2.9); LYMPHOCYTES % (AUTO) 25.3 % (21.0-51.0); MEAN CORPUSCULAR HEMOGLOBIN 25.1 pg (27.0-34.0); MEAN CORPUSCULAR HGB CONC 31.6 g/dL (33.0-35.0); MEAN CORPUSCULAR VOLUME 79.5 fL (80.0-100.0); MEAN PLATELET VOLUME 9.9 fL (7.4-11.0); MONOCYTES # (AUTO) 0.5 x10^3/uL (0.3-0.8); MONOCYTES % (AUTO) 13.4 % (0.0-13.0); NEUTROPHILS # (AUTO) 1.9 x10^3/uL (2.2-4.8); NEUTROPHILS % (AUTO) 56.5 % (42.0-75.0); PLATELET COUNT 191 X10^3/uL (150.0-450.0); RED BLOOD COUNT 4.62 X10^6/uL (3.5-5.4); RED CELL DISTRIBUTION WIDTH 17.9 % (11.6-16.5); WHITE BLOOD COUNT 3.4 X10^3/uL (3.6-10.0)
[2020-02-20 16:57] LABS: ALANINE AMINOTRANSFERASE 57 Units/L (12-78); ALBUMIN 2.7 g/dL (3.4-5.0); ALKALINE PHOSPHATASE 263 Units/L (46-116); ASPARTATE AMINO TRANSFERASE 39 Units/L (15-37); BLOOD UREA NITROGEN 14 mg/dL (7-18); CALCIUM 7.9 mg/dL (8.5-10.1); CARBON DIOXIDE 29.5 mmol/L (21-32); CHLORIDE 106 mmol/L (98-107); CKMB % 0.8 % (<4); COR CA(FOR HYPOALB) 8.9 mg/dL (8.5-10.1); COR NA(FOR HYPERGLY) 145 mmol/L (136-145); CREATINE KINASE 191 Units/L (26-192); CREATINE KINASE MB 1.6 ng/mL (0-4.0); CREATININE 1.34 mg/dL (0.55-1.02); SODIUM 144 mmol/L (136-145); TOTAL PROTEIN 6.3 g/dL (6.4-8.2); TROPONIN I < 0.02 ng/mL (0-1.5); eGFR NON BLACK RACES 44 (>60)
[2020-02-20] MEDS ORDERED: ULTRAM PO PRN (17:21)
[2020-02-20] MEDS ORDERED: COMPAZINE PO PRN (17:21)
[2020-02-20 17:30] LABS: PLATELET MORPHOLOGY COMMENT NORMAL (NORMAL)
[2020-02-20 17:31] LABS: ANISOCYTOSIS SLIGHT; HYPOCHROMASIA SLIGHT
--- NOTE | 2020-02-20 17:52 | CT ---
CHEST WITH CONIndication: "Stage IV lung cancer, shortness of breath, edema"Technique: Helical CT images of the chest were obtained with IV contrast. Reformatted images in the coronal and sagittal planes were also generated for review.Comparison: No prior CT exams are available for comparison.Findings: The heart is normal in size without significant pericardial effusion. The thoracic aorta and proximal great vessels are normal in contour and caliber. Postsurgical changes within the left hilum from previous left lower lobectomy noted. The remaining major central airways are patent. There is a mildly prominent left prevascular lymph node, which measures 1 cm in short axis on image 20, series 4. No additional enlarged intrathoracic lymph nodes are seen.There is interstitial thickening of the apical posterior segment of the left upper lobe and mild pleural parenchymal scarring of the left lung base. The right lung is clear. No focal consolidation is identified. There is no pleural effusion or pneumothorax.Diffuse hepatic steatosis noted. Limited images through the upper abdomen otherwise demonstrates no acute abnormality. No adrenal mass lesions seen. Review of bone windows demonstrate no acute osseous abnormalityImpression:1. Previous left lower lobectomy with interstitial thickening of the left upper lobe, which could reflect noncardiogenic edema or post radiation change. Lymphangitic carcinomatosis is also possible and not excluded. Clinical correlation as well as comparison with prior imaging is recommended if available.2. Mildly prominent left prevascular lymph node as above, which is also nonspecific and could be reactive in nature or reflect lymph node metastatic disease. Again, comparison with prior imaging is recommended if available.3. Hepatic steatosis.Electronically signed by: JOSH BLACK (Feb 20, 2020 17:51:15)
--- NOTE | 2020-02-20 18:08 | RAD ---
CHEST, PA/LAT ADULTHISTORY: Edema and lung cancerStudy: PA and lateral views of the chest.Comparison:Same day CTFindings:Cardiomegaly.Haziness of the left lung base. Osseous structures demonstrate no acute abnormality.IMPRESSION:1. Cardiomegaly and haziness of the left lung base. Would refer to same day chest CT for more detailed evaluation.Electronically signed by: YUE MOREL (Feb 20, 2020 18:06:43)
[2020-02-20] MEDS ORDERED: K-RIDER 10 MEQ/NS 100 ML 10 MEQ/100 ML BAG IV PRN (18:16)
[2020-02-20] MEDS ORDERED: K-DUR TAB 20 MEQ PO PRN (18:16)
[2020-02-20] MEDS ORDERED: KLOR-CON PO PRN (18:16)
[2020-02-20] MEDS ORDERED: MICRO K EXTEN CAP 10 MEQ PO PRN (18:16)
[2020-02-20] MEDS ORDERED: POTASSIUM CHL 40 MEQ/NS 0.45% 500 ML IV PRN (18:16)
[2020-02-20] MEDS ORDERED: POTASSIUM CHLORIDE LIQ 20 MEQ UDC PO PRN (18:16)
[2020-02-20] MEDS ORDERED: POTASSIUM CHL 60 MEQ/NS 0.45% 500 ML IV PRN (18:16)
[2020-02-20] MEDS: CRIZOTINIB 250 MG PO SCH ×2 (18:32→20:43)
[2020-02-20 20:06] LABS: CKMB % 0.6 % (<4); CREATINE KINASE 174 Units/L (26-192); TROPONIN I < 0.02 ng/mL (0-1.5)
[2020-02-20] MEDS: DESYREL PO SCH (20:44)
[2020-02-20] MEDS: LASIX IVP SCH (20:45)
[2020-02-20] MEDS: REQUIP PO SCH (20:45)
[2020-02-20] MEDS ORDERED: MUCOMYST (RESPIRATORY USE ONLY) ONE (20:50)
[2020-02-20] MEDS: MUCOMYST 20% 200 MG/ML PO SCH (21:10)
[2020-02-20 23:53] LABS: CKMB % 0.6 % (<4); CREATINE KINASE 160 Units/L (26-192); TROPONIN I < 0.02 ng/mL (0-1.5)
[2020-02-21 06:05] LABS: BASOPHILS % (AUTO) 0.1 % (0.2-1.0); EOSINOPHILS # (AUTO) 0.1 x10^3/uL (0.0-0.2); EOSINOPHILS % (AUTO) 5.6 % (0.9-2.9); HEMATOCRIT 32.4 % (36.0-47.0); HEMOGLOBIN 10.3 g/dL (12.0-16.0); LYMPHOCYTES # (AUTO) 0.9 X10^3/uL (1.3-2.9); LYMPHOCYTES % (AUTO) 38.6 % (21.0-51.0); MEAN CORPUSCULAR HGB CONC 31.9 g/dL (33.0-35.0); MEAN CORPUSCULAR VOLUME 78.5 fL (80.0-100.0); MEAN PLATELET VOLUME 9.5 fL (7.4-11.0); MONOCYTES # (AUTO) 0.4 x10^3/uL (0.3-0.8); NEUTROPHILS # (AUTO) 0.9 x10^3/uL (2.2-4.8); NEUTROPHILS % (AUTO) 39.7 % (42.0-75.0); PLATELET COUNT 166 X10^3/uL (150.0-450.0); RED BLOOD COUNT 4.12 X10^6/uL (3.5-5.4); RED CELL DISTRIBUTION WIDTH 17.9 % (11.6-16.5); WHITE BLOOD COUNT 2.3 X10^3/uL (3.6-10.0)
[2020-02-21 06:32] LABS: ALANINE AMINOTRANSFERASE 50 Units/L (12-78); ALBUMIN 2.2 g/dL (3.4-5.0); ALKALINE PHOSPHATASE 226 Units/L (46-116); ASPARTATE AMINO TRANSFERASE 32 Units/L (15-37); BLOOD UREA NITROGEN 13 mg/dL (7-18); CALCIUM 7.7 mg/dL (8.5-10.1); CARBON DIOXIDE 33.5 mmol/L (21-32); CHLORIDE 106 mmol/L (98-107); COR CA(FOR HYPOALB) 9.1 mg/dL (8.5-10.1); COR NA(FOR HYPERGLY) 144 mmol/L (136-145); CREATININE 1.13 mg/dL (0.55-1.02); SODIUM 143 mmol/L (136-145); TOTAL PROTEIN 4.9 g/dL (6.4-8.2); eGFR NON BLACK RACES 54 (>60)
[2020-02-21 06:38] LABS: PLATELET MORPHOLOGY COMMENT NORMAL (NORMAL)
[2020-02-21] MEDS: CRIZOTINIB 250 MG PO SCH ×2 (09:59→21:48)
[2020-02-21] MEDS: LASIX IVP SCH ×2 (09:59→16:27)
[2020-02-21] MEDS: REQUIP PO SCH ×2 (09:59→21:00)
[2020-02-21] MEDS: PROTONIX TAB 40 MG PO SCH (09:59)
[2020-02-21] MEDS: LOVENOX INJ 40 MG SYR SC SCH (10:02)
[2020-02-21] MEDS: MUCOMYST 20% 200 MG/ML PO SCH ×2 (10:03→21:48)
--- NOTE | 2020-02-21 11:18 | DR.UPDATE ---
H&P Update History and Physical Update: History and Physical reviewed and patient examined. Changes noted: Yes with the following: IS A 54 YEAR OLD PATIENT OF OURS WHO PRESENTED TO THE HOSPITAL A DIRECT ADMISSION DUE TO DYSPNEA AND 3+ PITTING EDEMA. PATIENT DOES HAVE CHRONIC SWELLING, HOWEVER, SWELLING AND SHORTNESS OF BREATH HAVE WORSENED OVER THE PAST 2-3 DAYS. SHE HAS HAD A LEFT LOWER LOBECTOMY DUE TO STAGE IV LUNG CANCER. SHE IS CURRENTLY RECEIVING AN ORAL CHEMOTHERAPY REGIMEN. SHE IS ALSO ON TORSEMIDE AT HOME, BUT DENIES IMPROVEMENT IN SYMPTOMS DESPITE COMPLIANCE WITH MEDICATIONS. ON ARRIVAL TO THE HOSPITAL, VITALS WERE 98.1-86-20-95%-139/67. LABS WERE OBTAINED. ABNORMAL LAB VALUES INCLUDE THE FOLLOWING: WBC 3.4, HGB 11.6, POTASSIUM 3.1, CREATININE 1.34, GLUCOSE 125, CALCIUM 7.9, AST 39, ALK PHOS 263, TOTAL PROTEIN 6.3, ALBUMIN 2.7. CARDIAC ENZYMES WERE WITHIN NORMAL LIMITS. RAPID COVID WAS NEGATIVE. A CHEST XRAY WAS OBTAINED AND REVEALED: 1. Cardiomegaly and haziness of the left lung base. A CHEST CT WAS THEN OBTAINED AND REVEALED: 1. Previous left lower lobectomy with interstitial thickening of the left upper lobe, which could reflect noncardiogenic edema or post radiation change. Lymphangitic carcinomatosis is also possible and not excluded. Clinical correlation as well as comparison with prior imaging is recommended if available. 2. Mildly prominent left prevascular lymph node as above, which is also nonspecific and could be reactive in nature or reflect lymph node metastatic disease. Again, comparison with prior imaging is recommended if available. 3. Hepatic steatosis. EKG WAS OBTAINED AND REVEALED: SINUS RHYTHM WITH HR 72. SHE WAS STARTED ON LASIX 40MG IV BID, LOVENOX 40MG SC DAILY, MUCOMYST 200MG PO BID X 4 DOSES, THE POTASSIUM AND MAGNESIUM PROTOCOLS, AND HER HOME MEDICATIONS WERE RESUMED. WE WILL OBTAIN AN ECHO AND RESTRICT HER FLUID INTAKE TO LESS THAN 1,000 ML/DAY. OTHERWISE, WE WILL FOLLOW UP WITH AM LABS AND CONTINUE TO MONITOR. Prescription drug monitoring program results: PDMP reviewed and no concerns identified H&P Reviewed: Yes Patient was examined?: Yes
[2020-02-21] MEDS: DESYREL PO SCH (21:48)
--- NOTE | 2020-02-22 05:13 | RAD ---
HISTORYSOBSTUDYCHEST, 1 [id number]/21/2020FINDINGSThe trachea is midline. The cardiac silhouette is mildly enlarged, similar to prior exam.. Perihilar infiltrate versus edema, progressed since prior exam. No pleural effusion or pneumothorax.. The bony thorax is unremarkable.IMPRESSIONInterval progression of perihilar infiltrate versus edema.Electronically signed by: Suzette Matthews (Feb 22, 2020 05:11:59)
[2020-02-22 06:17] LABS: BASOPHILS % (AUTO) 0.4 % (0.2-1.0); EOSINOPHILS # (AUTO) 0.1 x10^3/uL (0.0-0.2); EOSINOPHILS % (AUTO) 4.8 % (0.9-2.9); HEMATOCRIT 32.6 % (36.0-47.0); HEMOGLOBIN 10.3 g/dL (12.0-16.0); LYMPHOCYTES # (AUTO) 0.9 X10^3/uL (1.3-2.9); LYMPHOCYTES % (AUTO) 36.7 % (21.0-51.0); MEAN CORPUSCULAR HEMOGLOBIN 24.9 pg (27.0-34.0); MEAN CORPUSCULAR HGB CONC 31.6 g/dL (33.0-35.0); MEAN CORPUSCULAR VOLUME 78.8 fL (80.0-100.0); MEAN PLATELET VOLUME 9.1 fL (7.4-11.0); MONOCYTES # (AUTO) 0.4 x10^3/uL (0.3-0.8); NEUTROPHILS % (AUTO) 41.1 % (42.0-75.0); PLATELET COUNT 172 X10^3/uL (150.0-450.0); RED BLOOD COUNT 4.14 X10^6/uL (3.5-5.4); RED CELL DISTRIBUTION WIDTH 17.5 % (11.6-16.5); WHITE BLOOD COUNT 2.5 X10^3/uL (3.6-10.0)
[2020-02-22 06:45] LABS: ALANINE AMINOTRANSFERASE 50 Units/L (12-78); ALBUMIN 2.2 g/dL (3.4-5.0); ALKALINE PHOSPHATASE 218 Units/L (46-116); ASPARTATE AMINO TRANSFERASE 31 Units/L (15-37); BLOOD UREA NITROGEN 14 mg/dL (7-18); CALCIUM 7.5 mg/dL (8.5-10.1); CARBON DIOXIDE 33.3 mmol/L (21-32); CHLORIDE 106 mmol/L (98-107); COR CA(FOR HYPOALB) 8.9 mg/dL (8.5-10.1); CREATININE 1.26 mg/dL (0.55-1.02); SODIUM 143 mmol/L (136-145); eGFR NON BLACK RACES 47 (>60)
[2020-02-22 06:56] LABS: PLATELET MORPHOLOGY COMMENT NORMAL (NORMAL)
[2020-02-22 06:57] LABS: HYPOCHROMASIA SLIGHT
[2020-02-22] MEDS: LASIX IVP SCH (09:51)
[2020-02-22] MEDS: CRIZOTINIB 250 MG PO SCH (09:51)
[2020-02-22] MEDS: LOVENOX INJ 40 MG SYR SC SCH (09:52)
[2020-02-22] MEDS: PROTONIX TAB 40 MG PO SCH (09:53)
[2020-02-22] MEDS: REQUIP PO SCH (09:53)
[2020-02-22] MEDS: MUCOMYST 20% 200 MG/ML PO SCH (09:54)
--- NOTE | 2020-02-22 11:06 | PCM.PROG ---
Progress Note - Progress Note for Day of Date of Exam: 02/22/20 - Subjective Subjective: IS BEING TREATED FOR SHORTNESS OF BREATH AND GENERALIZED SWELLING. SHE DOES HAVE A HISTORY OF STAGE 4 LUNG CANCER. TODAY, SHE IS ALERT AND ORIENTED, LYING IN BED ON MORNING ROUNDS. SHE CONTINUES WITH COMPLAINTS OF SHORTNESS OF BREATH AND LOWER EXTREMITY EDEMA. ON EXAMINATION, HEART IS REGULAR IN RATE AND RHYTHM. BILATERAL LUNGS ARE NOTED WITH DIMINISHED LUNG SOUNDS THROUGHOUT. ABDOMEN IS ROUND, SOFT, AND NON-TENDER WITH NORMAL BOWEL SOUNDS NOTED IN ALL QUADRANTS. SHE IS NOTED WITH 2+ PITTING EDEMA TO BILATERAL LOWER EXTREMITIES. HER VITALS THIS MORNING ARE: 97.9-71-20-95%-101/53. LABS WERE OBTAINED. ABNORMAL LAB VALUES INCLUDE THE FOLLOWING: WBC 2.5, HGB 10.3, HCT 32.6, CARBON DIOXIDE 33.3, CREATININE 1.26, GLUCOSE 104, CALCIUM 7.5, ALK PHOS 218, TOTAL PROTEIN 5.0, ALBUMIN 2.2. A CHEST XRAY WAS OBTAINED AND REVEALED: INTERVAL PROGRESSION OF PERIHILAR INFILTRATE VERSUS EDEMA. AN ECHO WAS OBTAINED YESTERDAY AND REVEALED AN EJECTION FRACTION OF 52%. SHE IS CURRENTLY RECEIVING LASIX 40MG IV BID, LOVENOX 40MG SC DAILY, THE POTASSIUM AND MAGNESIUM PROTOCOLS, AND HER HOME MEDICATIONS WERE RESUMED. WE WILL CONTINUE WITH CURRENT PLAN OF CARE TODAY. OTHERWISE, WE PLAN TO FOLLOW UP WITH AM LABS AND CONTINUE TO MONITOR. - Past Medical Family Social History Past Med/Fam/Surg Hx: No changes since H&P Allergies: Allergies No Known Drug Allergies Allergy (Verified 12/29/17 12:01) - Review of Systems ROS: No change since H&P - Vital Signs and I&O's Vital Signs: Temperature 97.9 F Pulse Rate [Brachial] 71 Respiratory Rate 20 Blood Pressure [Left Arm] 101/53 Blood Pressure [Right Arm] 91/48 Blood Pressure 105/51 O2 Sat by Pulse Oximetry 95 Intake and Output: Intake & Output 02/19/20 02/20/20 02/21/20 02/22/20 11:59 11:59 11:59 11:59 Intake Total 780 / 780 1220 / 1220 Balance 780 / 780 1220 / 1220 - Physical Exam Oriented: Normal Eyes: Normal Ear: Normal Nose: Normal Respiratory: Generalized, Diminished Cardiovascular: Edema (BLE 2+ PITTING EDEMA ) : Normal Auscultation: Bowel Sounds: Normal Palpation: Normal Tenderness: Normal Skin: Normal Musculoskeletal: Normal Psychiatric: Normal Mood Description: Calm Affect: Normal Speech Pattern: Clear, Appropriate - Laboratory and Diagnostics Result Diagrams: 02/22/20 05:38 02/22/20 05:38 Labs: Laboratory WBC 2.5 X10^3/uL (3.6-10.0) L 02/22/20 05:38 RBC 4.14 X10^6/uL (3.5-5.4) 02/22/20 05:38 Hgb 10.3 g/dL (12.0-16.0) L 02/22/20 05:38 Hct 32.6 % (36.0-47.0) L 02/22/20 05:38 MCV 78.8 fL (80.0-100.0) L 02/22/20 05:38 MCH 24.9 pg (27.0-34.0) L 02/22/20 05:38 MCHC 31.6 g/dL (33.0-35.0) L 02/22/20 05:38 RDW 17.5 % (11.6-16.5) H 02/22/20 05:38 Plt Count 172 X10^3/uL (150.0-450.0) 02/22/20 05:38 Plt Count Comment Adequate (ADEQUATE) 02/22/20 05:38 MPV 9.1 fL (7.4-11.0) 02/22/20 05:38 Neut % (Auto) 41.1 % (42.0-75.0) L 02/22/20 05:38 Lymph % (Auto) 36.7 % (21.0-51.0) 02/22/20 05:38 Lyon % (Auto) 17.0 % (0.0-13.0) H 02/22/20 05:38 Eos % (Auto) 4.8 % (0.9-2.9) H 02/22/20 05:38 Baso % (Auto) 0.4 % (0.2-1.0) 02/22/20 05:38 Neut # (Auto) 1.0 x10^3/uL (2.2-4.8) L 02/22/20 05:38 Lymph # (Auto) 0.9 X10^3/uL (1.3-2.9) L 02/22/20 05:38 Lyon # (Auto) 0.4 x10^3/uL (0.3-0.8) 02/22/20 05:38 Eos # (Auto) 0.1 x10^3/uL (0.0-0.2) 02/22/20 05:38 Baso # (Auto) 0.0 X10^3/uL (0.0-0.1) 02/22/20 05:38 Absolute Nucleated RBC 0.0 /100WBC 02/22/20 05:38 Total Counted 100 02/22/20 05:38 Neutrophils % (Manual) 36 % (39-76) L 02/22/20 05:38 Lymphocytes % (Manual) 42 % (13-43) 02/22/20 05:38 Monocytes % (Manual) 18 % (4-9) H 02/22/20 05:38 Eosinophils % (Manual) 4 % (0-6) 02/22/20 05:38 Atypical Lymphocytes Few A 02/22/20 05:38 Plt Morphology Comment Normal (NORMAL) 02/22/20 05:38 RBC Morphology Abnormal (NORMAL) A 02/22/20 05:38 Hypochromasia Slight A 02/22/20 05:38 Anisocytosis Slight A 02/20/20 15:40 Sodium 143 mmol/L (136-145) 02/22/20 05:38 Corrected Sodium TNP 02/22/20 05:38 Potassium 3.6 mmol/L (3.5-5.1) 02/22/20 05:38 Chloride 106 mmol/L (98-107) 02/22/20 05:38 Carbon Dioxide 33.3 mmol/L (21-32) H 02/22/20 05:38 BUN 14 mg/dL (7-18) 02/22/20 05:38 Creatinine 1.26 mg/dL (0.55-1.02) H 02/22/20 05:38 Est GFR (MDRD) Af Amer 57 (>60) L 02/22/20 05:38 Est GFR (MDRD) Non-Af 47 (>60) L 02/22/20 05:38 Glucose 104 mg/dL (65-99) H 02/22/20 05:38 Calcium 7.5 mg/dL (8.5-10.1) L 02/22/20 05:38 Corrected Calcium 8.9 mg/dL (8.5-10.1) 02/22/20 05:38 Magnesium 1.9 mg/dL (1.7-2.9) 02/20/20 15:40 Total Bilirubin 0.20 mg/dL (0.2-1.0) 02/22/20 05:38 AST 31 Units/L (15-37) 02/22/20 05:38 ALT 50 Units/L (12-78) 02/22/20 05:38 Alkaline Phosphatase 218 Units/L (46-116) H 02/22/20 05:38 Creatine Kinase 160 Units/L (26-192) 02/20/20 23:05 CK-MB (CK-2) 1.0 ng/mL (0-4.0) 02/20/20 23:05 CK/CKMB % Calc 0.6 % (<4) 02/20/20 23:05 Troponin I < 0.02 ng/mL (0-1.5) 02/20/20 23:05 B-Natriuretic Peptide 44.2 pg/mL (0-79) 02/20/20 15:40 Total Protein 5.0 g/dL (6.4-8.2) L 02/22/20 05:38 Albumin 2.2 g/dL (3.4-5.0) L 02/22/20 05:38 Globulin 2.8 g/dL (2.5-4.5) 02/22/20 05:38 Albumin/Globulin Ratio 0.8 Ratio (1.1-2.1) L 02/22/20 05:38 - Plan (1) Anasarca Status: Acute Plan: LASIX 40MG IV BID, LOVENOX 40MG SC DAILY, THE POTASSIUM AND MAGNESIUM PROTOCOLS, AND HER HOME MEDICATIONS WERE RESUMED. (2) Dyspnea Status: Acute Qualifiers: Dyspnea type: shortness of breath Qualified Code(s): R06.02 - Shortness of breath; R06.00 - Dyspnea, unspecified; R06.01 - Orthopnea (3) Lung cancer metastatic to bone Status: Chronic
[2020-02-22 12:49] VITALS: BP 130/65
== END 2020-02-22 12:15 | disposition home or self-care (01) ==
LOC: MED/SURG
PROVIDERS: ADMIT Internal Medicine; ATTEND Internal Medicine
DX: Z20.828 Contact with and (suspected) exposure to other viral communicable diseases; C34.90 Malignant neoplasm of unspecified part of unspecified bronchus or lung; R06.02 Shortness of breath; R60.1 Generalized edema

== ENCOUNTER 2021-06-29 13:57 | Observation (INO) ==
[2021-06-29 18:15] LABS: BASOPHILS % (AUTO) 0.8 % (0.2-1.0); EOSINOPHILS # (AUTO) 0.1 x10^3/uL (0.0-0.2); EOSINOPHILS % (AUTO) 2.1 % (0.9-2.9); HEMATOCRIT 37.5 % (36.0-47.0); HEMOGLOBIN 12.4 g/dL (12.0-16.0); LYMPHOCYTES # (AUTO) 1.1 X10^3/uL (1.3-2.9); MEAN CORPUSCULAR HEMOGLOBIN 27.5 pg (27.0-34.0); MEAN CORPUSCULAR HGB CONC 32.9 g/dL (33.0-35.0); MEAN CORPUSCULAR VOLUME 83.6 fL (80.0-100.0); MEAN PLATELET VOLUME 9.4 fL (7.4-11.0); MONOCYTES # (AUTO) 0.7 x10^3/uL (0.3-0.8); MONOCYTES % (AUTO) 11.1 % (0.0-13.0); RED BLOOD COUNT 4.49 X10^6/uL (3.5-5.4); RED CELL DISTRIBUTION WIDTH 16.2 % (11.6-16.5)
[2021-06-29] MEDS ORDERED: ULTRAM PO PRN (18:18)
[2021-06-29] MEDS ORDERED: COMPAZINE PO PRN (18:18)
[2021-06-29 18:29] LABS: ALANINE AMINOTRANSFERASE 51 Units/L (12-78); ALBUMIN 2.5 g/dL (3.4-5.0); ALKALINE PHOSPHATASE 141 Units/L (46-116); ASPARTATE AMINO TRANSFERASE 33 Units/L (15-37); BLOOD UREA NITROGEN 17 mg/dL (7-18); CALCIUM 7.7 mg/dL (8.5-10.1); CARBON DIOXIDE 36.7 mmol/L (21-32); CHLORIDE 105 mmol/L (98-107); COR CA(FOR HYPOALB) 8.9 mg/dL (8.5-10.1); COR NA(FOR HYPERGLY) 143 mmol/L (136-145); CREATININE 1.16 mg/dL (0.55-1.02); SODIUM 142 mmol/L (136-145); TOTAL PROTEIN 5.6 g/dL (6.4-8.2); eGFR NON BLACK RACES 52 (>60)
[2021-06-29] MEDS: MICRO K EXTEN CAP 10 MEQ PO SCH (21:10)
[2021-06-29] MEDS: DESYREL PO SCH (21:11)
[2021-06-29] MEDS: REQUIP PO SCH (21:11)
[2021-06-29] MEDS ORDERED: POTASSIUM CHL 60 MEQ/NS 0.45% 500 ML IV PRN (21:12)
[2021-06-29] MEDS ORDERED: K-RIDER 10 MEQ/NS 100 ML 10 MEQ/100 ML BAG IV PRN (21:12)
[2021-06-29] MEDS ORDERED: POTASSIUM CHL 40 MEQ/NS 0.45% 500 ML IV PRN (21:12)
[2021-06-29] MEDS ORDERED: K-DUR TAB 20 MEQ PO PRN (21:12)
[2021-06-29] MEDS ORDERED: POTASSIUM CHLORIDE LIQ 20 MEQ UDC PO PRN (21:12)
[2021-06-30 04:58] LABS: BASOPHILS % (AUTO) 0.5 % (0.2-1.0); EOSINOPHILS # (AUTO) 0.1 x10^3/uL (0.0-0.2); EOSINOPHILS % (AUTO) 3.1 % (0.9-2.9); HEMATOCRIT 37.3 % (36.0-47.0); HEMOGLOBIN 12.3 g/dL (12.0-16.0); LYMPHOCYTES # (AUTO) 1.2 X10^3/uL (1.3-2.9); LYMPHOCYTES % (AUTO) 31.8 % (21.0-51.0); MEAN CORPUSCULAR HEMOGLOBIN 27.7 pg (27.0-34.0); MEAN CORPUSCULAR HGB CONC 33.1 g/dL (33.0-35.0); MEAN CORPUSCULAR VOLUME 83.8 fL (80.0-100.0); MEAN PLATELET VOLUME 9.4 fL (7.4-11.0); MONOCYTES # (AUTO) 0.5 x10^3/uL (0.3-0.8); MONOCYTES % (AUTO) 12.6 % (0.0-13.0); RED BLOOD COUNT 4.45 X10^6/uL (3.5-5.4); RED CELL DISTRIBUTION WIDTH 15.9 % (11.6-16.5); WHITE BLOOD COUNT 3.8 X10^3/uL (3.6-10.0)
[2021-06-30 05:08] LABS: ALANINE AMINOTRANSFERASE 46 Units/L (12-78); ALBUMIN 2.3 g/dL (3.4-5.0); ALKALINE PHOSPHATASE 135 Units/L (46-116); ASPARTATE AMINO TRANSFERASE 29 Units/L (15-37); BLOOD UREA NITROGEN 15 mg/dL (7-18); CALCIUM 7.5 mg/dL (8.5-10.1); CARBON DIOXIDE 35.1 mmol/L (21-32); CHLORIDE 104 mmol/L (98-107); COR CA(FOR HYPOALB) 8.9 mg/dL (8.5-10.1); CREATININE 1.12 mg/dL (0.55-1.02); MAGNESIUM 2.1 mg/dL (1.7-2.9); SODIUM 144 mmol/L (136-145); TOTAL PROTEIN 5.4 g/dL (6.4-8.2); eGFR NON BLACK RACES 54 (>60)
--- NOTE | 2021-06-30 07:33 | RAD ---
HISTORYSOBSTUDYCHEST, 1 [id number]/11/2021.TECHNIQUEAP view of the chestFINDINGSCardiac silhouette is enlarged. Mediastinal contours appear normal. Mildly worse appearance in hazy left lung opacity with some sparing of the upper lobe. Mildly worse appearance of right sided diffuse interstitial opacities. No definite pleural effusion or pneumothorax. Soft tissue attenuation limits evaluation.IMPRESSIONMild worsening in hazy and interstitial pulmonary opacities that may represent pulmonary edema. There is a history of lung cancer with left lower lobectomy. Cancer recurrence is not excluded. If there is need to evaluate for pulmonary nodules, CT chest is recommended.Electronically signed by: John Kuhn (Jun 30, 2021 07:32:50)
[2021-06-30] MEDS: ZAROXOLYN PO SCH (08:31)
[2021-06-30] MEDS: PROTONIX TAB 40 MG PO SCH (08:31)
[2021-06-30] MEDS: MICRO K EXTEN CAP 10 MEQ PO PRN (08:32)
[2021-06-30] MEDS: MICRO K EXTEN CAP 10 MEQ PO SCH ×2 (08:32→21:23)
--- NOTE | 2021-06-30 10:12 | DR.UPDATE ---
H&P Update History and Physical Update: History and Physical reviewed and patient examined. Changes noted: Yes with the following: IS A 56 YEAR OLD PATIENT OF OURS WHO PRESENTED TO THE HOSPITAL A DIRECT ADMISSION DUE TO DYSPNEA, 3+ PITTING EDEMA TO BILATERAL LOWER EXTREMITIES, AND HYPOKALEMIA. PATIENT DOES HAVE CHRONIC SWELLING, HOWEVER, SWELLING AND SHORTNESS OF BREATH HAVE WORSENED OVER THE PAST 2-3 DAYS. SHE HAS HAD A LEFT LOWER LOBECTOMY DUE TO STAGE IV LUNG CANCER. SHE IS CURRENTLY RECEIVING AN ORAL CHEMOTHERAPY REGIMEN. SHE IS ALSO ON FUROSEMIDE 40MG PO BID AND ZAROXOLYN 2.5MG PO DAILY AT HOME, BUT DENIES IMPROVEMENT IN SYMPTOMS DESPITE COMPLIANCE WITH MEDICATIONS. ON ARRIVAL TO THE HOSPITAL, VITALS WERE 98.2-73-22-95%-129/60. LABS WERE OBTAINED. WBC 3.8, RBC 4.45, HGB 12.3, HCT 37.3, SODIUM 144, POTASSIUM 3.4, CARBON DIOXIDE 35.1, BUN 15, CREATININE 1.12, GLUCOSE 104, CALCIUM 7.5, AST 29, ALT 46, ALK PHOS 135, TOTAL PROTEIN 5.4, ALBUMIN 2.3, BNP 17.4. RAPID COVID WAS NEGATIVE. A CHEST XRAY WAS OBTAINED AND REVEALED: Mild worsening in hazy and interstitial pulmonary opacities that may represent pulmonary edema. There is a history of lung cancer with left lower lobectomy. Cancer recurrence is not excluded. If there is need to evaluate for pulmonary nodules, CT chest is recommended. SHE HAD A LEXISCAN ON 06/10/21. IT REVEALED AN EJECTION FRACTION OF 77%. SHE WAS STARTED ON LASIX 40MG IV BID, THE POTASSIUM PROTOCOL, AND HER HOME MEDICATIONS OF ZAROXOLYN, PROTONIX, COMPAZINE, REQUIP, ULTRAM, AND TRAZODONE WERE RESUMED. WE WILL RESTRICT HER FLUID INTAKE TO LESS THAN 1,000ML/DAY. OTHERWISE, WE WILL FOLLOW UP WITH AM LABS AND CONTINUE TO MONITOR. TIME SPENT ON CLINICAL ASSESSMENT, REVIEWING LABS AND IMAGING, DECISION MAKING, AND DOCUMENTATION GREATER THAN 75 MINUTES. H&P Reviewed: Yes Patient was examined?: Yes
[2021-06-30] MEDS: ALBUMIN HUMAN 25%- 100 ML 100 ML IV SCH (10:29)
[2021-06-30] MEDS: LOVENOX INJ 40 MG SYR SC SCH (10:43)
[2021-06-30 13:48] VITALS: BMI 45.1
[2021-06-30] MEDS: LASIX IVP SCH (17:28)
[2021-06-30] MEDS: REQUIP PO SCH (21:22)
[2021-06-30] MEDS: DESYREL PO SCH (21:22)
[2021-06-30] MEDS: KLOR-CON PO PRN (21:23)
[2021-07-01 06:44] LABS: BASOPHILS % (AUTO) 0.6 % (0.2-1.0); EOSINOPHILS # (AUTO) 0.1 x10^3/uL (0.0-0.2); EOSINOPHILS % (AUTO) 3.5 % (0.9-2.9); HEMATOCRIT 36.2 % (36.0-47.0); HEMOGLOBIN 11.9 g/dL (12.0-16.0); LYMPHOCYTES % (AUTO) 28.9 % (21.0-51.0); MEAN CORPUSCULAR HEMOGLOBIN 27.8 pg (27.0-34.0); MEAN CORPUSCULAR VOLUME 84.3 fL (80.0-100.0); MEAN PLATELET VOLUME 9.8 fL (7.4-11.0); MONOCYTES # (AUTO) 0.5 x10^3/uL (0.3-0.8); MONOCYTES % (AUTO) 13.6 % (0.0-13.0); NEUTROPHILS # (AUTO) 1.8 x10^3/uL (2.2-4.8); NEUTROPHILS % (AUTO) 53.4 % (42.0-75.0); RED BLOOD COUNT 4.29 X10^6/uL (3.5-5.4); RED CELL DISTRIBUTION WIDTH 16.3 % (11.6-16.5); WHITE BLOOD COUNT 3.4 X10^3/uL (3.6-10.0)
[2021-07-01 07:01] LABS: ALANINE AMINOTRANSFERASE 40 Units/L (12-78); ALBUMIN 2.6 g/dL (3.4-5.0); ALKALINE PHOSPHATASE 128 Units/L (46-116); ASPARTATE AMINO TRANSFERASE 25 Units/L (15-37); BLOOD UREA NITROGEN 14 mg/dL (7-18); CALCIUM 7.6 mg/dL (8.5-10.1); CARBON DIOXIDE 38.5 mmol/L (21-32); CHLORIDE 104 mmol/L (98-107); COR CA(FOR HYPOALB) 8.7 mg/dL (8.5-10.1); CREATININE 1.03 mg/dL (0.55-1.02); SODIUM 144 mmol/L (136-145); TOTAL PROTEIN 5.5 g/dL (6.4-8.2); eGFR NON BLACK RACES 59 (>60)
[2021-07-01] MEDS: ALBUMIN HUMAN 25%- 100 ML 100 ML IV SCH (08:02)
[2021-07-01] MEDS: LASIX IVP SCH ×2 (08:02→16:26)
[2021-07-01] MEDS: MICRO K EXTEN CAP 10 MEQ PO SCH ×2 (08:03→20:26)
[2021-07-01] MEDS: ZAROXOLYN PO SCH (08:03)
[2021-07-01] MEDS: PROTONIX TAB 40 MG PO SCH (08:03)
[2021-07-01] MEDS: LOVENOX INJ 40 MG SYR SC SCH (08:03)
--- NOTE | 2021-07-01 09:57 | PCM.PROG ---
Progress Note - Progress Note for Day of Date of Exam: 07/01/21 - Subjective Subjective: WAS ADMITTED FOR TREATMENT OF LOWER EXTREMITY EDEMA, PULMONARY EDEMA, SHORTNESS OF BREATH, AND HYPOKALEMIA. SHE HAS CURRENT HISTORY OF LUNG CANCER WITH A LEFT LOWER LOBE LOBECTOMY AND IS CURRENTY RECEIVING ORAL CHEMOTHERAPY. TODAY, SHE IS ALERT AND ORIENTED, LYING IN BED ON MORNING ROUNDS. SHE REPORTS DECREASED SWELLING AND DECREASED SHORTNESS OF BREATH TODAY. ON EXAMINATION, HEART IS REGULAR IN RATE AND RHYTHM. BILATERAL LUNGS ARE NOTED WITH DIMINISHED LUNG SOUNDS THROUGHOUT. ABDOMEN IS ROUND, SOFT, AND NON-TENDER WITH NORMAL BOWEL SOUNDS NOTED IN ALL QUADRANTS. BLE NOTED WITH 1+ PITTING EDEMA. HER VITALS THIS MORNING ARE: 98.0-61-20-98%-134/67. LABS WERE OBTAINED. ABNORMAL LAB VALUES INCLUDE THE FOLLOWING: WBC 3.4, HGB 11.9, CARBON DIOXIDE 38.5, CREATININE 1.03, CALCIUM 7.6, ALK PHOS 128, TOTAL PROTEIN 5.5, ALBUMIN 2.6. SHE IS CURRENTLY RECEIVING LASIX 40MG IV BID, ALBUMIN 25% IV DAILY, THE POTASSIUM PROTOCOL, AND HER HOME MEDICATIONS OF ZAROXOLYN, PROTONIX, COMPAZINE, REQUIP, ULTRAM, AND TRAZODONE WERE RESUMED. WE WILL CONTINUE WITH CURRENT PLAN OF CARE TODAY. OTHERWISE, WE WILL FOLLOW UP WITH AM LABS AND CONTINUE TO MONITOR. TIME SPENT ON CLINICAL ASSESSMENT, REVIEWING LABS AND IMAGING, DECISION MAKING, AND DOCUMENTATION GREATER THAN 45 MINUTES. - Past Medical Family Social History Past Med/Fam/Surg Hx: No changes since H&P Allergies: Allergies No Known Drug Allergies Allergy (Verified 11/26/20 18:01) - Review of Systems ROS: No change since H&P - Vital Signs and I&O's Vital Signs: Temperature 98.0 F Pulse Rate [Bilateral Radial] 61 Respiratory Rate 20 Blood Pressure [Left Arm] 134/67 Blood Pressure [Right Arm] 91/48 Blood Pressure 106/51 O2 Sat by Pulse Oximetry 98 Intake and Output: Intake & Output 06/28/21 06/29/21 06/30/21 07/01/21 11:59 11:59 11:59 11:59 Intake Total 1149 / 1149 800 / 800 Balance 1149 / 1149 800 / 800 - Physical Exam Oriented: Normal Eyes: Normal Ear: Normal Nose: Normal Throat: Normal Respiratory: Diminished Cardiovascular: Edema (BLE 1+ PITTING EDEMA) : Normal Auscultation: Bowel Sounds: Normal Palpation: Normal Tenderness: Normal Skin: Normal Musculoskeletal: Normal Psychiatric: Normal Mood Description: Calm Affect: Normal Speech Pattern: Clear, Appropriate - Laboratory and Diagnostics Result Diagrams: 07/01/21 05:52 07/01/21 05:52 Labs: Laboratory WBC 3.4 X10^3/uL (3.6-10.0) L 07/01/21 05:52 RBC 4.29 X10^6/uL (3.5-5.4) 07/01/21 05:52 Hgb 11.9 g/dL (12.0-16.0) L 07/01/21 05:52 Hct 36.2 % (36.0-47.0) 07/01/21 05:52 MCV 84.3 fL (80.0-100.0) 07/01/21 05:52 MCH 27.8 pg (27.0-34.0) 07/01/21 05:52 MCHC 33.0 g/dL (33.0-35.0) 07/01/21 05:52 RDW 16.3 % (11.6-16.5) 07/01/21 05:52 Plt Count 185 X10^3/uL (150.0-450.0) 07/01/21 05:52 MPV 9.8 fL (7.4-11.0) 07/01/21 05:52 Neut % (Auto) 53.4 % (42.0-75.0) 07/01/21 05:52 Lymph % (Auto) 28.9 % (21.0-51.0) 07/01/21 05:52 Howell % (Auto) 13.6 % (0.0-13.0) H 07/01/21 05:52 Eos % (Auto) 3.5 % (0.9-2.9) H 07/01/21 05:52 Baso % (Auto) 0.6 % (0.2-1.0) 07/01/21 05:52 Neut # (Auto) 1.8 x10^3/uL (2.2-4.8) L 07/01/21 05:52 Lymph # (Auto) 1.0 X10^3/uL (1.3-2.9) L 07/01/21 05:52 Howell # (Auto) 0.5 x10^3/uL (0.3-0.8) 07/01/21 05:52 Eos # (Auto) 0.1 x10^3/uL (0.0-0.2) 07/01/21 05:52 Baso # (Auto) 0.0 X10^3/uL (0.0-0.1) 07/01/21 05:52 Absolute Nucleated RBC 0.1 /100WBC 07/01/21 05:52 Sodium 144 mmol/L (136-145) 07/01/21 05:52 Corrected Sodium TNP 07/01/21 05:52 Potassium 3.7 mmol/L (3.5-5.1) 07/01/21 05:52 Chloride 104 mmol/L (98-107) 07/01/21 05:52 Carbon Dioxide 38.5 mmol/L (21-32) H 07/01/21 05:52 BUN 14 mg/dL (7-18) 07/01/21 05:52 Creatinine 1.03 mg/dL (0.55-1.02) H 07/01/21 05:52 Est GFR (MDRD) Af Amer > 60 (>60) 07/01/21 05:52 Est GFR (MDRD) Non-Af 59 (>60) 07/01/21 05:52 Glucose 97 mg/dL (65-99) 07/01/21 05:52 Calcium 7.6 mg/dL (8.5-10.1) L 07/01/21 05:52 Corrected Calcium 8.7 mg/dL (8.5-10.1) 07/01/21 05:52 Magnesium 2.1 mg/dL (1.7-2.9) 06/30/21 04:19 Total Bilirubin 0.30 mg/dL (0.2-1.0) 07/01/21 05:52 AST 25 Units/L (15-37) 07/01/21 05:52 ALT 40 Units/L (12-78) 07/01/21 05:52 Alkaline Phosphatase 128 Units/L (46-116) H 07/01/21 05:52 B-Natriuretic Peptide 17.4 pg/mL (0-79) 06/30/21 04:19 Total Protein 5.5 g/dL (6.4-8.2) L 07/01/21 05:52 Albumin 2.6 g/dL (3.4-5.0) L 07/01/21 05:52 Globulin 2.9 g/dL (2.5-4.5) 07/01/21 05:52 Albumin/Globulin Ratio 0.9 Ratio (1.1-2.1) L 07/01/21 05:52 SARS CoV-2 RNA Rapid DAWSON Negative (NEGATIVE) 06/29/21 15:32 - Plan (1) Pulmonary edema Status: Acute Qualifiers: Chronicity: acute Qualified Code(s): J81.0 - Acute pulmonary edema Plan: LASIX 40MG IV BID, ALBUMIN 25% IV DAILY, THE POTASSIUM PROTOCOL, AND HER HOME MEDICATIONS OF ZAROXOLYN, PROTONIX, COMPAZINE, REQUIP, ULTRAM, AND TRAZODONE WERE RESUMED. (2) Bilateral lower extremity edema Status: Acute (3) Shortness of breath Status: Acute (4) Acute hypokalemia Status: Acute (5) History of lung cancer Status: Chronic (6) Hypothyroidism Status: Chronic Qualifiers: Hypothyroidism type: acquired
--- NOTE | 2021-07-01 13:47 | RAD ---
HISTORYsob, chfSTUDYCHEST x-ray, 1 VIEWCOMPARISONX-ray 06/30/2021FINDINGSImprovement of hazy interstitial left perihilar densities. There is cardiomegaly and possible CHF. This may be mild pulmonary edema. No pneumothorax or pleural effusion is seenIMPRESSIONImproved left perihilar hazy densities. Possible mild CHF. Heart size is improved.Electronically signed by: Afshin Wislon (Jul 01, 2021 13:46:34)
[2021-07-01] MEDS: REQUIP PO SCH (20:25)
[2021-07-01] MEDS: DESYREL PO SCH (20:26)
--- NOTE | 2021-07-02 06:17 | RAD ---
HISTORYShortness of breathSTUDYChest AP caagthwsVASCBVOBFV99/02/2022FINDINGSThe heart remains enlarged. Right lung is clear. Perihilar interstitial changes are again identified on the left possibly representing asymmetric edema versus is pneumonitis or atypical pneumonia. Left pleural effusion is not excluded. Bony thorax is unremarkable.IMPRESSIONNo significant change from the prior examinationElectronically signed by: RADHA HERNANDEZ (Jul 02, 2021 06:16:04)
[2021-07-02 06:54] LABS: BASOPHILS % (AUTO) 0.1 % (0.2-1.0); EOSINOPHILS # (AUTO) 0.1 x10^3/uL (0.0-0.2); EOSINOPHILS % (AUTO) 3.7 % (0.9-2.9); HEMATOCRIT 37.3 % (36.0-47.0); HEMOGLOBIN 12.3 g/dL (12.0-16.0); LYMPHOCYTES # (AUTO) 1.4 X10^3/uL (1.3-2.9); LYMPHOCYTES % (AUTO) 35.3 % (21.0-51.0); MEAN CORPUSCULAR HEMOGLOBIN 27.4 pg (27.0-34.0); MEAN PLATELET VOLUME 9.9 fL (7.4-11.0); MONOCYTES # (AUTO) 0.6 x10^3/uL (0.3-0.8); MONOCYTES % (AUTO) 13.9 % (0.0-13.0); NEUTROPHILS # (AUTO) 1.9 x10^3/uL (2.2-4.8); RED BLOOD COUNT 4.49 X10^6/uL (3.5-5.4); RED CELL DISTRIBUTION WIDTH 15.6 % (11.6-16.5)
[2021-07-02 07:16] LABS: ALANINE AMINOTRANSFERASE 45 Units/L (12-78); ALKALINE PHOSPHATASE 136 Units/L (46-116); ASPARTATE AMINO TRANSFERASE 28 Units/L (15-37); BLOOD UREA NITROGEN 16 mg/dL (7-18); CALCIUM 7.7 mg/dL (8.5-10.1); CHLORIDE 99 mmol/L (98-107); COR CA(FOR HYPOALB) 8.5 mg/dL (8.5-10.1); CREATININE 1.24 mg/dL (0.55-1.02); SODIUM 140 mmol/L (136-145); TOTAL PROTEIN 6.1 g/dL (6.4-8.2); eGFR NON BLACK RACES 48 (>60)
[2021-07-02 07:49] VITALS: BP 104/54
[2021-07-02] MEDS: ALBUMIN HUMAN 25%- 100 ML 100 ML IV SCH (08:10)
[2021-07-02] MEDS: LOVENOX INJ 40 MG SYR SC SCH (08:11)
[2021-07-02] MEDS: MICRO K EXTEN CAP 10 MEQ PO SCH (08:12)
[2021-07-02] MEDS: KLOR-CON PO PRN (08:13)
[2021-07-02] MEDS: MICRO K EXTEN CAP 10 MEQ PO PRN (08:13)
[2021-07-02] MEDS: PROTONIX TAB 40 MG PO SCH (08:24)
[2021-07-02] MEDS: ZAROXOLYN PO SCH (08:24)
[2021-07-02] MEDS: LASIX IVP SCH (08:24)
== END 2021-07-02 10:15 | disposition home or self-care (01) ==
LOC: MED/SURG
PROVIDERS: ADMIT Internal Medicine; ATTEND Internal Medicine
DX: R06.02 Shortness of breath; E87.6 Hypokalemia; M79.604 Pain in right leg; E03.8 Other specified hypothyroidism; Z85.118 Personal history of other malignant neoplasm of bronchus and lung; Z92.21 Personal history of antineoplastic chemotherapy; Z20.822 Contact with and (suspected) exposure to COVID-19; J81.0 Acute pulmonary edema

== ENCOUNTER 2022-06-24 12:41 | Observation (INO) ==
[2022-06-24] MEDS ORDERED: ZOFRAN INJ 4 MG VIAL IVP PRN (14:07)
[2022-06-24] MEDS ORDERED: DILAUDID INJ IVP PRN (15:40)
[2022-06-24] MEDS: NS 1,000 ML IV 1,000 ML IV SCH (16:12)
[2022-06-24] MEDS: ZOSYN VIAL 3.375 GRAMS 3.375 G in NS 100 ML IV 100 ML IV SCH ×2 (16:12→21:12)
[2022-06-24 16:42] LABS: BILIRUBIN,URINE 2+ (NEGATIVE); BLOOD/HEMOGLOBIN,URINE NEGATIVE (NEGATIVE); GLUCOSE, URINE NEGATIVE (NEGATIVE); KETONES,URINE 1+ (NEGATIVE); LEUKOCYTE ESTERASE ,URINE 2+ (NEGATIVE); NITRITES,URINE NEGATIVE (NEGATIVE); PROTEIN,URINE 2+ (NEGATIVE); UROBILINOGEN,URINE 3+ (NORMAL)
[2022-06-24 17:00] LABS: APPEARANCE,URINE HAZY (CLEAR); COLOR,URINE AMBER (YELLOW)
[2022-06-24 17:03] LABS: BACTERIA,URINE 2+ /HPF (NEGATIVE); RBC,URINE 0-2 /HPF (0-3); SQUAMOUS EPITHELIAL CELL,UR NUMEROUS /HPF (NEGATIVE); YEAST,URINE MANY /HPF (NEGATIVE)
[2022-06-24] MEDS: TORADOL 30 MG VIAL IVP PRN (21:14)
[2022-06-25] MEDS: NS 1,000 ML IV 1,000 ML IV SCH ×2 (05:04→18:20)
[2022-06-25] MEDS: ZOSYN VIAL 3.375 GRAMS 3.375 G in NS 100 ML IV 100 ML IV SCH ×3 (05:05→21:08)
[2022-06-25] MEDS: TORADOL 30 MG VIAL IVP PRN (05:06)
[2022-06-25 05:26] LABS: BASOPHILS % (AUTO) 0.9 % (0.2-1.0); EOSINOPHILS % (AUTO) 1.2 % (0.9-2.9); HEMOGLOBIN 9.9 g/dL (12.0-16.0); LYMPHOCYTES # (AUTO) 0.8 X10^3/uL (1.3-2.9); LYMPHOCYTES % (AUTO) 19.4 % (21.0-51.0); MEAN CORPUSCULAR HEMOGLOBIN 28.3 pg (27.0-34.0); MEAN CORPUSCULAR VOLUME 83.2 fL (80.0-100.0); MEAN PLATELET VOLUME 9.7 fL (7.4-11.0); MONOCYTES # (AUTO) 0.4 x10^3/uL (0.3-0.8); MONOCYTES % (AUTO) 8.2 % (0.0-13.0); NEUTROPHILS % (AUTO) 70.3 % (42.0-75.0); RED BLOOD COUNT 3.49 X10^6/uL (3.5-5.4); WHITE BLOOD COUNT 4.3 X10^3/uL (3.6-10.0)
[2022-06-25 05:35] LABS: ALBUMIN 1.9 g/dL (3.4-5.0); CALCIUM 7.7 mg/dL (8.5-10.1); CARBON DIOXIDE 37.7 mmol/L (21-32); COR CA(FOR HYPOALB) 9.4 mg/dL (8.5-10.1); CREATININE 1.59 mg/dL (0.55-1.02); TOTAL PROTEIN 4.9 g/dL (6.4-8.2)
[2022-06-25] MEDS ORDERED: KLOR-CON PO PRN (05:45)
[2022-06-25] MEDS ORDERED: K-RIDER 10 MEQ/NS 100 ML 10 MEQ/100 ML BAG IV PRN (05:45)
[2022-06-25] MEDS ORDERED: MICRO K EXTEN CAP 10 MEQ PO PRN (05:45)
[2022-06-25] MEDS ORDERED: K-DUR TAB 20 MEQ PO PRN (05:45)
[2022-06-25] MEDS ORDERED: POTASSIUM CHLORIDE LIQ 20 MEQ UDC PO PRN (05:45)
[2022-06-25] MEDS ORDERED: POTASSIUM CHL 60 MEQ/NS 0.45% 500 ML IV PRN (05:45)
[2022-06-25] MEDS ORDERED: POTASSIUM CHL 40 MEQ/NS 0.45% 500 ML IV PRN (05:45)
[2022-06-25 05:52] LABS: ANISOCYTOSIS 1+; BURR CELLS PRESENT; PLATELET MORPHOLOGY COMMENT NORMAL (NORMAL); TEAR DROP CELLS PRESENT
[2022-06-25] MEDS: LOVENOX INJ 40 MG SYR SC SCH (08:51)
[2022-06-25] MEDS: ALBUMIN HUMAN 25%- 100 ML 100 ML IV SCH (09:28)
--- NOTE | 2022-06-25 11:27 | DR.UPDATE ---
H&P Update H&P Reviewed: Yes Any changes to H&P?: Yes Changes noted:: WAS A DIRECT ADMISSION, OBSERVATION STATUS, FOR TREATMENT OF BILATERAL LOWER EXTREMTIY CELLULITIS. SHE COMPLAINED OF THROBBING PAIN TO BILATERAL LWOER EXTREMITIES. SHE HAS BEEN TREATED OUTPATIENT WITH KEFLEX 500MG BID X 10 DAYS AND HAD THEN STARTED TAKING BACTRIM DS 1 TABLET BID ON 06/22/22. SHE DENIES IMPROVEMENT IN SYMPTOMS DESPITE COMPLIANCE WITH MEDICATIONS. ON ADMISSION, VITALS WERE: 98.7-106-20-98%-111/64. LABS WERE OBTAINED. WBC 4.3, RBC 3.49, HGB 9.9, HCT 29.0, PLT COUNT 179, SODIUM 136, POTASSIUM 2.1, CHLORIDE 94, CARBON DIOXIDE 37.7, BUN 12, CREATININE 1.59, GLUCOSE 135, CALCIUM 7.7, MAGNESIUM 1.7, AST 42, ALT 23, ALK PHOS 169, CRP 42.40, TOTAL PROTEIN 4.9, ALBUMIN 1.9. URINALYSIS REVEALED: WBC 0-2, RBC 0-2, BACTERIA 2+, LEUKOCYTES 2+, YEAST MANY. URINE AND BLOOD CULTURES WERE SET UP. SHE WAS STARTED ON NORMAL SALINE AT 80 ML/HR, ZOSYN 3.375G IV TID, DIFLUCAN 200MG IV DAILY, LASIX 20MG PO BID, ALBUMIN 25% IV DAILY, LOVENOX 40MG SC DAILY, TORADOL 30MG IV Q8H PRN, DILAUDID 1MG IV Q4H PRN, AND THE POTASSIUM AND MAGNESIUM PROTOCOLS. WE PLAN TO OBTAIN BILATERAL LOWER EXTREMITY VENOUS DOPPLERS. OTHERWISE, WE WILL FOLLOW-UP WITH AM LABS AND CONTINUE TO MONITOR. TIME SPENT ON CLINICAL ASSESSMENT, REVIWING LABS AND IMAGING, DECISION MAKING, AND DOCUMENTATION GREATER THAN 75 MINUTES. Patient was examined?: Yes
[2022-06-25] MEDS: DIFLUCAN 200 MG IV PREMIX* 200 MG/100 ML BAG IV SCH (11:57)
[2022-06-25] MEDS ORDERED: ULTRAM PO PRN (12:39)
[2022-06-25] MEDS ORDERED: NORCO 5/325 MG TAB PO PRN (12:39)
[2022-06-25] MEDS ORDERED: CRIZOTINIB 250 MG PO SCH (12:45)
[2022-06-25] MEDS: PROTONIX TAB 40 MG PO SCH ×2 (13:23→20:09)
[2022-06-25] MEDS: LINZESS PO SCH (13:24)
[2022-06-25] MEDS: NEURONTIN CAP 300 MG PO SCH ×2 (13:24→21:09)
[2022-06-25] MEDS: COMPAZINE PO SCH (13:24)
[2022-06-25] MEDS: COLCRYS TAB 0.6 MG PO SCH ×2 (13:24→20:11)
[2022-06-25] MEDS: MOTRIN TAB 800 MG PO SCH ×2 (13:25→21:09)
[2022-06-25] MEDS: COLACE CAP 100 MG PO SCH ×2 (13:25→20:10)
--- NOTE | 2022-06-25 15:19 | VAS ---
HISTORYb/l lower ext edemaExtremity pain, swelling, and edemaStudy: Bilateral lower extremity Doppler venous ultrasound.TECHNIQUE: Multiple yu scale and color flow Doppler images of the deep venous system were obtained of the [right and left] lower extremity.FINDINGS: The deep venous system of the [right and left lower extremities were] evaluated from the level of the common femoral veins through the popliteal veins, bilaterally. Normal color flow and augmentation can be observed. In addition, normal compression is seen throughout the deep venous system. [No Hanna's cyst is seen].IMPRESSION:1. Negative examination for DVT.Electronically signed by: RYDER MCNEIL III (Jun 25, 2022 15:18:53)
[2022-06-25] MEDS: LASIX PO SCH (16:32)
[2022-06-25] MEDS: MAGNESIUM SULFATE 1 GRAM/100 mL PREMIX 1 G/100 ML BAG IV PRN ×2 (18:31→19:40)
[2022-06-25] MEDS: PATIENT'S HOME MEDICATION PO SCH (20:08)
[2022-06-25] MEDS: REQUIP PO SCH (20:09)
[2022-06-25] MEDS: DESYREL PO SCH (20:09)
[2022-06-25] MEDS: MICRO K EXTEN CAP 10 MEQ PO SCH (20:10)
[2022-06-26] MEDS: NS 1,000 ML IV 1,000 ML IV SCH ×2 (05:03→18:54)
[2022-06-26] MEDS: MOTRIN TAB 800 MG PO SCH ×3 (05:04→21:50)
[2022-06-26] MEDS: NEURONTIN CAP 300 MG PO SCH ×3 (05:04→21:50)
[2022-06-26] MEDS: ZOSYN VIAL 3.375 GRAMS 3.375 G in NS 100 ML IV 100 ML IV SCH ×3 (05:06→21:51)
[2022-06-26 05:23] LABS: BASOPHILS % (AUTO) 0.8 % (0.2-1.0); EOSINOPHILS # (AUTO) 0.1 x10^3/uL (0.0-0.2); EOSINOPHILS % (AUTO) 1.8 % (0.9-2.9); HEMOGLOBIN 9.3 g/dL (12.0-16.0); LYMPHOCYTES # (AUTO) 0.7 X10^3/uL (1.3-2.9); LYMPHOCYTES % (AUTO) 18.9 % (21.0-51.0); MEAN CORPUSCULAR HGB CONC 33.3 g/dL (33.0-35.0); MEAN CORPUSCULAR VOLUME 84.1 fL (80.0-100.0); MEAN PLATELET VOLUME 9.9 fL (7.4-11.0); MONOCYTES # (AUTO) 0.3 x10^3/uL (0.3-0.8); MONOCYTES % (AUTO) 7.2 % (0.0-13.0); NEUTROPHILS # (AUTO) 2.5 x10^3/uL (2.2-4.8); NEUTROPHILS % (AUTO) 71.3 % (42.0-75.0); RED BLOOD COUNT 3.33 X10^6/uL (3.5-5.4); RED CELL DISTRIBUTION WIDTH 21.7 % (11.6-16.5); WHITE BLOOD COUNT 3.5 X10^3/uL (3.6-10.0)
[2022-06-26 05:37] LABS: ALBUMIN 2.1 g/dL (3.4-5.0); CALCIUM 7.4 mg/dL (8.5-10.1); CARBON DIOXIDE 31.2 mmol/L (21-32); COR CA(FOR HYPOALB) 8.9 mg/dL (8.5-10.1); CREATININE 1.66 mg/dL (0.55-1.02); TOTAL PROTEIN 4.8 g/dL (6.4-8.2)
[2022-06-26 06:09] LABS: ANISOCYTOSIS 1+; PLATELET MORPHOLOGY COMMENT NORMAL (NORMAL)
[2022-06-26 06:10] LABS: BURR CELLS PRESENT
[2022-06-26] MEDS: DIFLUCAN 200 MG IV PREMIX* 200 MG/100 ML BAG IV SCH (08:30)
[2022-06-26] MEDS: LASIX PO SCH (08:30)
[2022-06-26] MEDS: COMPAZINE PO SCH (08:30)
[2022-06-26] MEDS: ALDACTONE TAB 25 MG PO SCH (08:30)
[2022-06-26] MEDS: PROTONIX TAB 40 MG PO SCH ×2 (08:30→21:50)
[2022-06-26] MEDS: LOVENOX INJ 40 MG SYR SC SCH (08:31)
[2022-06-26] MEDS: COLCRYS TAB 0.6 MG PO SCH ×2 (08:31→21:50)
[2022-06-26] MEDS: MICRO K EXTEN CAP 10 MEQ PO SCH ×2 (08:31→21:50)
[2022-06-26] MEDS: REQUIP PO SCH ×2 (08:32→21:49)
[2022-06-26] MEDS: PATIENT'S HOME MEDICATION PO SCH ×2 (08:37→21:48)
[2022-06-26] MEDS: COLACE CAP 100 MG PO SCH ×2 (08:49→21:51)
[2022-06-26] MEDS: LINZESS PO SCH (08:49)
[2022-06-26] MEDS: ALBUMIN HUMAN 25%- 100 ML 100 ML IV SCH (09:47)
--- NOTE | 2022-06-26 11:49 | PCM.PROG ---
Progress Note Progress Note for Day of Date of Exam: 06/26/22 Subjective Subjective: Patient seen at bedside, no overnight events. Her leg swelling and redness as improved. She has been ambulating to the bathroom. She is currently admitted for cellulitis and UTI. Leg US was negative for DVT. Her potassium has been low 2.3. Labs/imaging reviewed - Hgb 9.3 K 2.3 BUN/Cr: 12/1.66 Mg 2.0 Plan: continue IV antibiotics, replace K. Change IVF to NS+KCl, monitor level. Decrease lasix to daily due to SBP in 80-90s. Continue home medications. Monitor AM labs. Past Medical Family Social History Allergies: Allergies No Known Drug Allergies Allergy (Verified 03/24/22 04:07) Vital Signs and I&O's Vital Signs: Temperature 98.0 F Pulse Rate 70 Respiratory Rate 16 Blood Pressure [Left Arm] 110/72 Blood Pressure 86/51 O2 Sat by Pulse Oximetry 96 Intake and Output: Intake & Output 06/23/22 06/24/22 06/25/22 06/26/22 23:59 23:59 23:59 23:59 Intake Total 1020 / 1020 3384 / 3384 680 / 680 Balance 1020 / 1020 3384 / 3384 680 / 680 Physical Exam Oriented: Normal Nose: Normal Respiratory: Normal Cardiovascular: Normal Auscultation: Bowel Sounds: Normal Palpation: Normal Tenderness: Normal Skin: Other (b/l LE edema and redness improved, mild tenderness ) Musculoskeletal: Normal Psychiatric: Normal Mood Description: Calm Affect: Normal Speech Pattern: Clear and Appropriate Laboratory and Diagnostics Result Diagrams: 06/26/22 04:06 06/26/22 04:06 Labs: 06/24/22 15:56 Urine,Clean Catch Urine Culture - Preliminary Laboratory WBC 3.5 X10^3/uL (3.6-10.0) L 06/26/22 04:06 RBC 3.33 X10^6/uL (3.5-5.4) L 06/26/22 04:06 Hgb 9.3 g/dL (12.0-16.0) L 06/26/22 04:06 Hct 28.0 % (36.0-47.0) L 06/26/22 04:06 MCV 84.1 fL (80.0-100.0) 06/26/22 04:06 MCH 28.0 pg (27.0-34.0) 06/26/22 04:06 MCHC 33.3 g/dL (33.0-35.0) 06/26/22 04:06 RDW 21.7 % (11.6-16.5) H 06/26/22 04:06 Plt Count 158 X10^3/uL (150.0-450.0) 06/26/22 04:06 Plt Count Comment Adequate (ADEQUATE) 06/26/22 04:06 MPV 9.9 fL (7.4-11.0) 06/26/22 04:06 Neut % (Auto) 71.3 % (42.0-75.0) 06/26/22 04:06 Lymph % (Auto) 18.9 % (21.0-51.0) L 06/26/22 04:06 [place] % (Auto) 7.2 % (0.0-13.0) 06/26/22 04:06 Eos % (Auto) 1.8 % (0.9-2.9) 06/26/22 04:06 Baso % (Auto) 0.8 % (0.2-1.0) 06/26/22 04:06 Neut # (Auto) 2.5 x10^3/uL (2.2-4.8) 06/26/22 04:06 Lymph # (Auto) 0.7 X10^3/uL (1.3-2.9) L 06/26/22 04:06 [place] # (Auto) 0.3 x10^3/uL (0.3-0.8) 06/26/22 04:06 Eos # (Auto) 0.1 x10^3/uL (0.0-0.2) 06/26/22 04:06 Baso # (Auto) 0.0 X10^3/uL (0.0-0.1) 06/26/22 04:06 Absolute Nucleated RBC 0.2 /100WBC 06/26/22 04:06 Plt Morphology Comment Normal (NORMAL) 06/26/22 04:06 RBC Morphology Abnormal (NORMAL) A 06/26/22 04:06 Anisocytosis 1+ A 06/26/22 04:06 Tear Drop Cells Present 06/25/22 04:00 [place] Cells Present 06/26/22 04:06 Sodium 138 mmol/L (136-145) 06/26/22 04:06 Corrected Sodium 139 mmol/L (136-145) 06/26/22 04:06 Potassium 2.3 mmol/L (3.5-5.1) L* 06/26/22 04:06 Chloride 99 mmol/L (98-107) 06/26/22 04:06 Carbon Dioxide 31.2 mmol/L (21-32) 06/26/22 04:06 BUN 12 mg/dL (7-18) 06/26/22 04:06 Creatinine 1.66 mg/dL (0.55-1.02) H 06/26/22 04:06 Est GFR (MDRD) Af Amer 41 (>60) L 06/26/22 04:06 Est GFR (MDRD) Non-Af 34 (>60) L 06/26/22 04:06 Glucose 152 mg/dL (65-99) H 06/26/22 04:06 Calcium 7.4 mg/dL (8.5-10.1) L 06/26/22 04:06 Corrected Calcium 8.9 mg/dL (8.5-10.1) 06/26/22 04:06 Magnesium 2.0 mg/dL (2.0-2.9) 06/26/22 04:06 Total Bilirubin 1.00 mg/dL (0.2-1.0) 06/26/22 04:06 AST 51 Units/L (15-37) H 06/26/22 04:06 ALT 24 Units/L (12-78) 06/26/22 04:06 Alkaline Phosphatase 156 Units/L (46-116) H 06/26/22 04:06 C-Reactive Protein 42.40 mg/L (0-3.0) H 06/24/22 16:30 Total Protein 4.8 g/dL (6.4-8.2) L 06/26/22 04:06 Albumin 2.1 g/dL (3.4-5.0) L 06/26/22 04:06 Globulin 2.7 g/dL (2.5-4.5) 06/26/22 04:06 Albumin/Globulin Ratio 0.8 Ratio (1.1-2.1) L 06/26/22 04:06 Specimen Type Clean catch urine 06/24/22 15:56 Urine Color Love (YELLOW) 06/24/22 15:56 Urine Appearance Hazy (CLEAR) 06/24/22 15:56 Urine pH 7.0 (5.0 - 8.0) 06/24/22 15:56 Ur Specific [place] 1.010 (1.000-1.030) 06/24/22 15:56 Urine Protein 2+ (NEGATIVE) 06/24/22 15:56 Urine Glucose (UA) Negative (NEGATIVE) 06/24/22 15:56 Urine Ketones 1+ (NEGATIVE) 06/24/22 15:56 Urine Blood Negative (NEGATIVE) 06/24/22 15:56 Urine Nitrite Negative (NEGATIVE) 06/24/22 15:56 Urine Bilirubin 2+ (NEGATIVE) 06/24/22 15:56 Urine Urobilinogen 3+ (NORMAL) 06/24/22 15:56 Ur Leukocyte Esterase 2+ (NEGATIVE) 06/24/22 15:56 Urine RBC 0-2 /HPF (0-3) 06/24/22 15:56 Urine WBC 0-2 /HPF (0-5) 06/24/22 15:56 Ur Squamous Epith Cells Numerous /HPF (NEGATIVE) 06/24/22 15:56 Urine Bacteria 2+ /HPF (NEGATIVE) 06/24/22 15:56 Urine Yeast Many /HPF (NEGATIVE) 06/24/22 15:56 Ur Culture Indicated? Yes/culture set up 06/24/22 15:56 Plan (1) Cellulitis: Status: Acute (2) Bilateral lower extremity edema: Status: Acute (3) Acute hypokalemia: Status: Acute (4) UTI (urinary tract infection): Status: Acute (5) Weakness generalized: Status: Acute (6) Anemia: Status: Acute
[2022-06-26] MEDS: NS + KCL 40 MEQ/L 1,000 ML IV SCH ×2 (12:49→23:08)
[2022-06-26] MEDS ORDERED: NS 100 ML IV 100 ML ONE (20:13)
[2022-06-26] MEDS: DESYREL PO SCH (21:48)
[2022-06-27] MEDS: NS + KCL 40 MEQ/L 1,000 ML IV SCH ×2 (02:16→12:28)
[2022-06-27 05:05] LABS: BASOPHILS % (AUTO) 0.6 % (0.2-1.0); EOSINOPHILS # (AUTO) 0.1 x10^3/uL (0.0-0.2); EOSINOPHILS % (AUTO) 1.7 % (0.9-2.9); HEMATOCRIT 26.4 % (36.0-47.0); HEMOGLOBIN 8.9 g/dL (12.0-16.0); LYMPHOCYTES # (AUTO) 0.7 X10^3/uL (1.3-2.9); LYMPHOCYTES % (AUTO) 22.3 % (21.0-51.0); MEAN CORPUSCULAR HEMOGLOBIN 28.5 pg (27.0-34.0); MEAN CORPUSCULAR HGB CONC 33.8 g/dL (33.0-35.0); MEAN CORPUSCULAR VOLUME 84.4 fL (80.0-100.0); MEAN PLATELET VOLUME 9.7 fL (7.4-11.0); MONOCYTES # (AUTO) 0.3 x10^3/uL (0.3-0.8); MONOCYTES % (AUTO) 7.8 % (0.0-13.0); NEUTROPHILS # (AUTO) 2.3 x10^3/uL (2.2-4.8); NEUTROPHILS % (AUTO) 67.6 % (42.0-75.0); RED BLOOD COUNT 3.12 X10^6/uL (3.5-5.4); RED CELL DISTRIBUTION WIDTH 22.3 % (11.6-16.5); WHITE BLOOD COUNT 3.3 X10^3/uL (3.6-10.0)
[2022-06-27 05:23] LABS: ALBUMIN 2.2 g/dL (3.4-5.0); CALCIUM 7.6 mg/dL (8.5-10.1); CARBON DIOXIDE 32.4 mmol/L (21-32); CREATININE 1.35 mg/dL (0.55-1.02); TOTAL PROTEIN 4.8 g/dL (6.4-8.2)
[2022-06-27] MEDS ORDERED: NS 100 ML IV 100 ML ONE (05:31)
[2022-06-27] MEDS: MOTRIN TAB 800 MG PO SCH ×3 (05:56→21:33)
[2022-06-27] MEDS: NEURONTIN CAP 300 MG PO SCH ×3 (05:56→21:33)
[2022-06-27] MEDS: ZOSYN VIAL 3.375 GRAMS 3.375 G in NS 100 ML IV 100 ML IV SCH ×3 (05:56→21:34)
[2022-06-27 05:57] LABS: ANISOCYTOSIS 2+; OVALOCYTES SLIGHT; PLATELET MORPHOLOGY COMMENT NORMAL (NORMAL)
[2022-06-27 05:58] LABS: BURR CELLS 1+
[2022-06-27] MEDS: ALBUMIN HUMAN 25%- 100 ML 100 ML IV SCH (08:34)
[2022-06-27] MEDS: ALDACTONE TAB 25 MG PO SCH (09:05)
[2022-06-27] MEDS: COLACE CAP 100 MG PO SCH ×2 (09:05→21:33)
[2022-06-27] MEDS: DIFLUCAN 200 MG IV PREMIX* 200 MG/100 ML BAG IV SCH (09:05)
[2022-06-27] MEDS: COLCRYS TAB 0.6 MG PO SCH ×2 (09:05→21:33)
[2022-06-27] MEDS: COMPAZINE PO SCH (09:05)
[2022-06-27] MEDS: LINZESS PO SCH (09:06)
[2022-06-27] MEDS: LOVENOX INJ 40 MG SYR SC SCH (09:06)
[2022-06-27] MEDS: MICRO K EXTEN CAP 10 MEQ PO SCH ×2 (09:06→21:33)
[2022-06-27] MEDS: PATIENT'S HOME MEDICATION PO SCH ×2 (09:06→21:31)
[2022-06-27] MEDS: LASIX PO SCH (09:06)
[2022-06-27] MEDS: PROTONIX TAB 40 MG PO SCH ×2 (09:07→21:31)
[2022-06-27] MEDS: REQUIP PO SCH ×2 (09:07→21:32)
--- NOTE | 2022-06-27 11:47 | PCM.PROG ---
Progress Note Progress Note for Day of Date of Exam: 06/27/22 Subjective Subjective: Patient seen at bedside, no overnight events. Her leg swelling and redness is similar to yesterday. She has been ambulating to the bathroom. She is currently admitted for cellulitis and UTI. Leg US was negative for DVT. Her potassium has improved to 2.9. Labs/imaging reviewed - Hgb 8.9 K 2.9 BUN/Cr: 10/1.35 Urine Cx: yeast Plan: continue IV antibiotics, replace K. Continue IVF NS+KCl, monitor level. Continue lasix daily. Continue home medications. Monitor AM labs. Past Medical Family Social History Allergies: Allergies No Known Drug Allergies Allergy (Verified 03/24/22 04:07) Vital Signs and I&O's Vital Signs: Temperature 97.9 F Pulse Rate 70 Respiratory Rate 15 Blood Pressure [Left Arm] 110/72 Blood Pressure 96/55 O2 Sat by Pulse Oximetry 96 Intake and Output: Intake & Output 06/24/22 06/25/22 06/26/22 06/27/22 23:59 23:59 23:59 23:59 Intake Total 1020 / 1020 3384 / 3384 2665 / 2665 865 / 865 Balance 1020 / 1020 3384 / 3384 2665 / 2665 865 / 865 Physical Exam Oriented: Normal Nose: Normal Respiratory: Normal Cardiovascular: Normal Auscultation: Bowel Sounds: Normal Tenderness: Normal Skin: Other (b/l LE edema and redness improved, mild tenderness ) Musculoskeletal: Normal Psychiatric: Normal Mood Description: Calm Affect: Normal Speech Pattern: Clear and Appropriate Laboratory and Diagnostics Result Diagrams: 06/27/22 04:06 06/27/22 04:06 Labs: 06/24/22 16:41 Blood Blood Culture - Preliminary 06/24/22 16:30 Blood Blood Culture - Preliminary 06/24/22 15:56 Urine,Clean Catch Urine Culture - Preliminary Laboratory WBC 3.3 X10^3/uL (3.6-10.0) L 06/27/22 04:06 RBC 3.12 X10^6/uL (3.5-5.4) L 06/27/22 04:06 Hgb 8.9 g/dL (12.0-16.0) L 06/27/22 04:06 Hct 26.4 % (36.0-47.0) L 06/27/22 04:06 MCV 84.4 fL (80.0-100.0) 06/27/22 04:06 MCH 28.5 pg (27.0-34.0) 06/27/22 04:06 MCHC 33.8 g/dL (33.0-35.0) 06/27/22 04:06 RDW 22.3 % (11.6-16.5) H 06/27/22 04:06 Plt Count 145 X10^3/uL (150.0-450.0) L 06/27/22 04:06 Plt Count Comment Decreased (ADEQUATE) A 06/27/22 04:06 MPV 9.7 fL (7.4-11.0) 06/27/22 04:06 Neut % (Auto) 67.6 % (42.0-75.0) 06/27/22 04:06 Lymph % (Auto) 22.3 % (21.0-51.0) 06/27/22 04:06 [place] % (Auto) 7.8 % (0.0-13.0) 06/27/22 04:06 Eos % (Auto) 1.7 % (0.9-2.9) 06/27/22 04:06 Baso % (Auto) 0.6 % (0.2-1.0) 06/27/22 04:06 Neut # (Auto) 2.3 x10^3/uL (2.2-4.8) 06/27/22 04:06 Lymph # (Auto) 0.7 X10^3/uL (1.3-2.9) L 06/27/22 04:06 [place] # (Auto) 0.3 x10^3/uL (0.3-0.8) 06/27/22 04:06 Eos # (Auto) 0.1 x10^3/uL (0.0-0.2) 06/27/22 04:06 Baso # (Auto) 0.0 X10^3/uL (0.0-0.1) 06/27/22 04:06 Absolute Nucleated RBC 0.1 /100WBC 06/27/22 04:06 Plt Morphology Comment Normal (NORMAL) 06/27/22 04:06 RBC Morphology Abnormal (NORMAL) A 06/27/22 04:06 Anisocytosis 2+ A 06/27/22 04:06 Tear Drop Cells Present 06/25/22 04:00 Ovalocytes Slight A 06/27/22 04:06 [place] Cells 1+ A 06/27/22 04:06 Sodium 141 mmol/L (136-145) 06/27/22 04:06 Corrected Sodium 141 mmol/L (136-145) 06/27/22 04:06 Potassium 2.9 mmol/L (3.5-5.1) L* 06/27/22 04:06 Chloride 104 mmol/L (98-107) 06/27/22 04:06 Carbon Dioxide 32.4 mmol/L (21-32) H 06/27/22 04:06 BUN 10 mg/dL (7-18) 06/27/22 04:06 Creatinine 1.35 mg/dL (0.55-1.02) H 06/27/22 04:06 Est GFR (MDRD) Af Amer 52 (>60) L 06/27/22 04:06 Est GFR (MDRD) Non-Af 43 (>60) L 06/27/22 04:06 Glucose 115 mg/dL (65-99) H 06/27/22 04:06 Calcium 7.6 mg/dL (8.5-10.1) L 06/27/22 04:06 Corrected Calcium 9.0 mg/dL (8.5-10.1) 06/27/22 04:06 Magnesium 2.0 mg/dL (2.0-2.9) 06/26/22 04:06 Total Bilirubin 0.90 mg/dL (0.2-1.0) 06/27/22 04:06 AST 39 Units/L (15-37) H 06/27/22 04:06 ALT 17 Units/L (12-78) 06/27/22 04:06 Alkaline Phosphatase 140 Units/L (46-116) H 06/27/22 04:06 C-Reactive Protein 42.40 mg/L (0-3.0) H 06/24/22 16:30 Total Protein 4.8 g/dL (6.4-8.2) L 06/27/22 04:06 Albumin 2.2 g/dL (3.4-5.0) L 06/27/22 04:06 Globulin 2.6 g/dL (2.5-4.5) 06/27/22 04:06 Albumin/Globulin Ratio 0.8 Ratio (1.1-2.1) L 06/27/22 04:06 Specimen Type Clean catch urine 06/24/22 15:56 Urine Color [place] (YELLOW) 06/24/22 15:56 Urine Appearance Hazy (CLEAR) 06/24/22 15:56 Urine pH 7.0 (5.0 - 8.0) 06/24/22 15:56 Ur Specific [place] 1.010 (1.000-1.030) 06/24/22 15:56 Urine Protein 2+ (NEGATIVE) 06/24/22 15:56 Urine Glucose (UA) Negative (NEGATIVE) 06/24/22 15:56 Urine Ketones 1+ (NEGATIVE) 06/24/22 15:56 Urine Blood Negative (NEGATIVE) 06/24/22 15:56 Urine Nitrite Negative (NEGATIVE) 06/24/22 15:56 Urine Bilirubin 2+ (NEGATIVE) 06/24/22 15:56 Urine Urobilinogen 3+ (NORMAL) 06/24/22 15:56 Ur Leukocyte Esterase 2+ (NEGATIVE) 06/24/22 15:56 Urine RBC 0-2 /HPF (0-3) 06/24/22 15:56 Urine WBC 0-2 /HPF (0-5) 06/24/22 15:56 Ur Squamous Epith Cells Numerous /HPF (NEGATIVE) 06/24/22 15:56 Urine Bacteria 2+ /HPF (NEGATIVE) 06/24/22 15:56 Urine Yeast Many /HPF (NEGATIVE) 06/24/22 15:56 Ur Culture Indicated? Yes/culture set up 06/24/22 15:56 Plan (1) Cellulitis: Status: Acute (2) Bilateral lower extremity edema: Status: Acute (3) Acute hypokalemia: Status: Acute (4) UTI (urinary tract infection): Status: Acute (5) Weakness generalized: Status: Acute (6) Anemia: Status: Acute
[2022-06-27] MEDS: DESYREL PO SCH (21:32)
[2022-06-28] MEDS: NS + KCL 40 MEQ/L 1,000 ML IV SCH ×2 (01:02→08:06)
[2022-06-28] MEDS ORDERED: NS 100 ML IV 100 ML ONE (04:18)
[2022-06-28] MEDS: NEURONTIN CAP 300 MG PO SCH (05:13)
[2022-06-28] MEDS: MOTRIN TAB 800 MG PO SCH (05:14)
[2022-06-28] MEDS: ZOSYN VIAL 3.375 GRAMS 3.375 G in NS 100 ML IV 100 ML IV SCH (05:14)
[2022-06-28 05:32] LABS: BASOPHILS % (AUTO) 0.7 % (0.2-1.0); EOSINOPHILS # (AUTO) 0.1 x10^3/uL (0.0-0.2); EOSINOPHILS % (AUTO) 1.5 % (0.9-2.9); HEMATOCRIT 27.4 % (36.0-47.0); HEMOGLOBIN 9.3 g/dL (12.0-16.0); LYMPHOCYTES # (AUTO) 0.7 X10^3/uL (1.3-2.9); MEAN CORPUSCULAR HEMOGLOBIN 29.2 pg (27.0-34.0); MEAN CORPUSCULAR VOLUME 85.8 fL (80.0-100.0); MEAN PLATELET VOLUME 9.6 fL (7.4-11.0); MONOCYTES # (AUTO) 0.2 x10^3/uL (0.3-0.8); NEUTROPHILS # (AUTO) 2.4 x10^3/uL (2.2-4.8); NEUTROPHILS % (AUTO) 69.8 % (42.0-75.0); WHITE BLOOD COUNT 3.4 X10^3/uL (3.6-10.0)
[2022-06-28 05:44] LABS: ALANINE AMINOTRANSFERASE 16 Units/L (12-78); ALBUMIN 2.5 g/dL (3.4-5.0); ALKALINE PHOSPHATASE 145 Units/L (46-116); ASPARTATE AMINO TRANSFERASE 38 Units/L (15-37); BLOOD UREA NITROGEN 8 mg/dL (7-18); CALCIUM 7.9 mg/dL (8.5-10.1); CARBON DIOXIDE 28.9 mmol/L (21-32); CHLORIDE 108 mmol/L (98-107); COR CA(FOR HYPOALB) 9.1 mg/dL (8.5-10.1); CREATININE 1.19 mg/dL (0.55-1.02); SODIUM 143 mmol/L (136-145); TOTAL PROTEIN 5.2 g/dL (6.4-8.2); eGFR NON BLACK RACES 50 (>60)
[2022-06-28 06:00] LABS: BURR CELLS PRESENT; PLATELET MORPHOLOGY COMMENT NORMAL (NORMAL)
[2022-06-28 06:01] LABS: ANISOCYTOSIS 1+
[2022-06-28] MEDS: ALBUMIN HUMAN 25%- 100 ML 100 ML IV SCH (08:14)
[2022-06-28] MEDS: COLACE CAP 100 MG PO SCH (08:20)
[2022-06-28] MEDS: COLCRYS TAB 0.6 MG PO SCH (08:20)
[2022-06-28] MEDS: ALDACTONE TAB 25 MG PO SCH (08:20)
[2022-06-28] MEDS: COMPAZINE PO SCH (08:20)
[2022-06-28] MEDS: LOVENOX INJ 40 MG SYR SC SCH (08:21)
[2022-06-28] MEDS: LINZESS PO SCH (08:21)
[2022-06-28] MEDS: DIFLUCAN 200 MG IV PREMIX* 200 MG/100 ML BAG IV SCH (08:21)
[2022-06-28] MEDS: MICRO K EXTEN CAP 10 MEQ PO SCH (08:21)
[2022-06-28] MEDS: LASIX PO SCH (08:21)
[2022-06-28] MEDS: PATIENT'S HOME MEDICATION PO SCH (08:22)
[2022-06-28] MEDS: REQUIP PO SCH (08:22)
[2022-06-28] MEDS: PROTONIX TAB 40 MG PO SCH (08:22)
[2022-06-28 11:02] VITALS: BP 101/59
== END 2022-06-28 12:00 | disposition home or self-care (01) ==
LOC: ICU
PROVIDERS: ADMIT Internal Medicine; ATTEND Internal Medicine
DX: R79.82 Elevated C-reactive protein (CRP); L03.115 Cellulitis of right lower limb; R53.1 Weakness; D64.9 Anemia, unspecified; R60.0 Localized edema; R73.09 Other abnormal glucose; E87.6 Hypokalemia; B37.89 Other sites of candidiasis; L03.116 Cellulitis of left lower limb; N39.0 Urinary tract infection, site not specified

== ENCOUNTER 2022-07-07 15:49 | Observation (INO) ==
[2022-07-07 17:42] VITALS: BMI 41.5
[2022-07-07 21:07] LABS: HEMOGLOBIN 9.9 g/dL (12.0-16.0); MONOCYTES # (AUTO) 0.3 x10^3/uL (0.3-0.8); RED BLOOD COUNT 3.37 X10^6/uL (3.5-5.4)
[2022-07-07] MEDS: LASIX IVP SCH (21:10)
[2022-07-07 21:11] LABS: BASOPHILS % (AUTO) 0.8 % (0.2-1.0); EOSINOPHILS # (AUTO) 0.1 x10^3/uL (0.0-0.2); HEMATOCRIT 29.5 % (36.0-47.0); LYMPHOCYTES % (AUTO) 22.3 % (21.0-51.0); MEAN CORPUSCULAR HEMOGLOBIN 29.5 pg (27.0-34.0); MEAN CORPUSCULAR HGB CONC 33.7 g/dL (33.0-35.0); MEAN CORPUSCULAR VOLUME 87.6 fL (80.0-100.0); MONOCYTES % (AUTO) 7.7 % (0.0-13.0); NEUTROPHILS # (AUTO) 2.9 x10^3/uL (2.2-4.8); NEUTROPHILS % (AUTO) 67.2 % (42.0-75.0); RED CELL DISTRIBUTION WIDTH 22.1 % (11.6-16.5); WHITE BLOOD COUNT 4.3 X10^3/uL (3.6-10.0)
[2022-07-07 21:14] LABS: ALANINE AMINOTRANSFERASE 23 Units/L (12-78); ALBUMIN 2.8 g/dL (3.4-5.0); ALKALINE PHOSPHATASE 155 Units/L (46-116); ASPARTATE AMINO TRANSFERASE 52 Units/L (15-37); BLOOD UREA NITROGEN 13 mg/dL (7-18); CALCIUM 8.8 mg/dL (8.5-10.1); CARBON DIOXIDE 33.1 mmol/L (21-32); CHLORIDE 101 mmol/L (98-107); COR CA(FOR HYPOALB) 9.8 mg/dL (8.5-10.1); COR NA(FOR HYPERGLY) 138 mmol/L (136-145); CREATININE 1.08 mg/dL (0.55-1.02); SODIUM 138 mmol/L (136-145); TOTAL PROTEIN 5.9 g/dL (6.4-8.2); eGFR NON BLACK RACES 56 (>60)
[2022-07-07 21:25] LABS: ANISOCYTOSIS 2+; BURR CELLS PRESENT; PLATELET MORPHOLOGY COMMENT NORMAL (NORMAL); SCHISTOCYTES PRESENT
[2022-07-07] MEDS: ULTRAM PO PRN (21:39)
[2022-07-08 05:36] LABS: EOSINOPHILS # (AUTO) 0.1 x10^3/uL (0.0-0.2); EOSINOPHILS % (AUTO) 2.3 % (0.9-2.9); HEMATOCRIT 28.6 % (36.0-47.0); HEMOGLOBIN 9.6 g/dL (12.0-16.0); MEAN CORPUSCULAR HEMOGLOBIN 29.2 pg (27.0-34.0); MEAN CORPUSCULAR HGB CONC 33.6 g/dL (33.0-35.0); MEAN CORPUSCULAR VOLUME 86.9 fL (80.0-100.0); MONOCYTES # (AUTO) 0.4 x10^3/uL (0.3-0.8); MONOCYTES % (AUTO) 8.7 % (0.0-13.0); NEUTROPHILS # (AUTO) 2.9 x10^3/uL (2.2-4.8); RED BLOOD COUNT 3.29 X10^6/uL (3.5-5.4); RED CELL DISTRIBUTION WIDTH 21.2 % (11.6-16.5); WHITE BLOOD COUNT 4.4 X10^3/uL (3.6-10.0)
[2022-07-08 05:50] LABS: ALANINE AMINOTRANSFERASE 21 Units/L (12-78); ALBUMIN 2.7 g/dL (3.4-5.0); ALKALINE PHOSPHATASE 155 Units/L (46-116); ASPARTATE AMINO TRANSFERASE 55 Units/L (15-37); BLOOD UREA NITROGEN 12 mg/dL (7-18); CALCIUM 8.4 mg/dL (8.5-10.1); CARBON DIOXIDE 35.1 mmol/L (21-32); CHLORIDE 99 mmol/L (98-107); COR CA(FOR HYPOALB) 9.4 mg/dL (8.5-10.1); COR NA(FOR HYPERGLY) 137 mmol/L (136-145); CREATININE 1.12 mg/dL (0.55-1.02); SODIUM 137 mmol/L (136-145); TOTAL PROTEIN 5.8 g/dL (6.4-8.2); eGFR NON BLACK RACES 53 (>60)
[2022-07-08] MEDS ORDERED: POTASSIUM CHLORIDE LIQ 20 MEQ UDC PO PRN (05:57)
[2022-07-08] MEDS ORDERED: KLOR-CON PO PRN (05:57)
[2022-07-08] MEDS ORDERED: K-RIDER 10 MEQ/NS 100 ML 10 MEQ/100 ML BAG IV PRN (05:57)
[2022-07-08] MEDS ORDERED: MICRO K EXTEN CAP 10 MEQ PO PRN (05:57)
[2022-07-08] MEDS ORDERED: POTASSIUM CHL 60 MEQ/NS 0.45% 500 ML IV PRN (05:57)
[2022-07-08] MEDS ORDERED: POTASSIUM CHL 40 MEQ/NS 0.45% 500 ML IV PRN (05:57)
[2022-07-08] MEDS: K-DUR TAB 20 MEQ PO PRN ×2 (06:09→11:32)
[2022-07-08 06:16] LABS: ANISOCYTOSIS 1+; BURR CELLS SLIGHT; PLATELET MORPHOLOGY COMMENT NORMAL (NORMAL); SCHISTOCYTES SLIGHT
--- NOTE | 2022-07-08 06:32 | RAD ---
HISTORYHYPOXIASTUDYCHEST, 1 [id number]/28/2023.TECHNIQUEPA or AP view of the chestFINDINGSThe cardiac and mediastinal contours appear stable. Similar appearing left worse than right lung airspace and interstitial opacities. Cannot exclude small left pleural effusion. No pneumothorax Soft tissue attenuation limits evaluation.IMPRESSIONNo significant change compared to prior radiograph. Similar appearing pulmonary opacities may represent pulmonary edema or pneumonia in the acute setting. Recommend follow up imaging to document resolution after appropriate treatment.Electronically signed by: John Kuhn (Jul 08, 2022 06:30:29)
[2022-07-08] MEDS: ULTRAM PO PRN (08:55)
[2022-07-08] MEDS: LASIX IVP SCH ×2 (08:55→18:01)
[2022-07-08] MEDS ORDERED: NORCO 7.5/325 MG TAB PO PRN (09:30)
[2022-07-08] MEDS ORDERED: DILAUDID INJ IVP PRN (09:48)
[2022-07-08] MEDS ORDERED: TORADOL 15 MG VIAL IVP PRN (09:48)
[2022-07-08] MEDS ORDERED: LINZESS PO SCH (10:00)
--- NOTE | 2022-07-08 10:22 | DR.UPDATE ---
H&P Update Prescription drug monitoring program results: PDMP reviewed and no concerns identified H&P Reviewed: Yes Any changes to H&P?: Yes Changes noted:: WAS A DIRECT ADMISSION, OBSERVATION STATUS, FOR TREATMENT OF BILATERAL LOWER EXTREMTIY CELLULITIS AND EDEMA. SHE WAS ADMITTED TO THE HOSPITAL APPROXIMATELY TWO WEEKS AGO FOR THE SAME DIAGNOSIS. ON 06/28/22, SHE WAS DISCHARGED WITH A PRESCRIPTION FOR AUGMENTIN 275-125MG BID X 14 DAYS AND FUROSEMIDE 20MG DAILY. SHE CONTINUES TO COMPLAIN OF MODERATE SWELLING, ERYTHEMA, AND THROBBING PAIN TO BILATERAL LOWER EXTREMITIES DESPITE COMPLIANCE WITH HER MEDICATIONS. PRIOR TO HER PREVIOUS HOSPITAL STAY, SHE WAS TREATED WITH KEFLEX AND BACTRIM DS. SHE REPORTS DIFFICULTY AMBULATING AND PERFORMING ADLs DUE TO LOWER EXTREMITY PAIN AND WEAKNESS AND SHORTNESS OF BREATH. SHE REPORTS THAT HER SATURATIONS AT HOME HAD BEEN RUNNING IN THE LOWER 80s ON ROOM AIR. DECISION WAS MADE TO READMIT PATIENT TO THE HOSPITAL FOR FURTHER EVALUATION AND TREATMENT OF BILATERAL LOWER EXTREMITY CELLULITIS, EDEMA, AND HYPOXIA. ON ADMISSION, VITALS WERE: 98.4-89-21-96%-117/59. LABS WERE OBTAINED. WBC 4.3, RBC 3.37, HGB 9.9, HCT 29.5, PLT COUNT 185, SODIUM 138, POTASSIUM 3.3, CHLORIDE 101, CARBON DIOXIDE 33.1, BUN 13, CREATININE 1.08, GLUCOSE 111, CALCIUM 8.8, TOTAL BILI 1.30, AST 52, ALT 23, ALK PHOS 155, TOTAL PROTEIN 5.9, ALBUMIN 2.8. BLOOD CULTURES WERE SET UP. SHE WAS STARTED ON ZOSYN 3.375G IV TID, LASIX 40MG IV BID, DILAUDID 1MG IV Q4H PRN, TORADOL 30MG IV Q8H PRN, ELIQUIS 5MG PO BID, THE POTASSIUM AND MAGNESIUM PROTOCOLS. AND HER HOME MEDICATIONS WERE RESUMED. HER HOME MEDICATIONS INCLUDE: COLCRYS, NEURONTIN, NORCO, LINZESS, PROTONIX, COMPAZINE, ALDACTONE, ULTRAM, AND DESYREL. WE WILL HAVE PHYSICAL THERAPY EVALUATE AND WORK WITH PATIENT. OTHERWISE, WE WILL FOLLOW-UP WITH AM LABS AND CONTINUE TO MONITOR. TIME SPENT ON CLINICAL ASSESSMENT, REVIWING LABS AND IMAGING, DECISION MAKING, AND DOCUMENTATION GREATER THAN 75 MINUTES. Patient was examined?: Yes
[2022-07-08] MEDS: ZAROXOLYN PO SCH (11:31)
[2022-07-08] MEDS: PROTONIX TAB 40 MG PO SCH ×2 (11:31→21:32)
[2022-07-08] MEDS: ELIQUIS PO SCH ×2 (11:31→21:32)
[2022-07-08] MEDS: COMPAZINE PO SCH (11:31)
[2022-07-08] MEDS: ALDACTONE TAB 25 MG PO SCH (11:31)
[2022-07-08] MEDS: COLCRYS TAB 0.6 MG PO SCH ×2 (11:31→21:31)
[2022-07-08] MEDS: NEURONTIN CAP 300 MG PO SCH ×3 (11:31→21:31)
[2022-07-08] MEDS: REQUIP PO SCH ×2 (11:32→21:31)
[2022-07-08] MEDS: ZOSYN VIAL 3.375 GRAMS 3.375 G in NS 100 ML IV 100 ML IV SCH ×3 (11:32→21:33)
[2022-07-08] MEDS: ALECTINIB 150 MG PO SCH ×2 (11:33→21:33)
[2022-07-08] MEDS: DESYREL PO SCH (21:30)
[2022-07-08] MEDS: K-DUR TAB 20 MEQ PO SCH (21:31)
[2022-07-08] MEDS: MAGNESIUM SULFATE 1 GRAM/100 mL PREMIX 1 G/100 ML BAG IV PRN (23:13)
[2022-07-08] MEDS ORDERED: NS 100 ML IV 100 ML ONE (23:57)
[2022-07-09] MEDS: MAGNESIUM SULFATE 1 GRAM/100 mL PREMIX 1 G/100 ML BAG IV PRN (01:27)
[2022-07-09 05:11] LABS: BASOPHILS % (AUTO) 0.6 % (0.2-1.0); EOSINOPHILS # (AUTO) 0.1 x10^3/uL (0.0-0.2); EOSINOPHILS % (AUTO) 2.9 % (0.9-2.9); HEMATOCRIT 29.3 % (36.0-47.0); HEMOGLOBIN 9.8 g/dL (12.0-16.0); LYMPHOCYTES # (AUTO) 1.1 X10^3/uL (1.3-2.9); LYMPHOCYTES % (AUTO) 24.5 % (21.0-51.0); MEAN CORPUSCULAR HEMOGLOBIN 28.9 pg (27.0-34.0); MEAN CORPUSCULAR HGB CONC 33.4 g/dL (33.0-35.0); MEAN CORPUSCULAR VOLUME 86.6 fL (80.0-100.0); MEAN PLATELET VOLUME 10.4 fL (7.4-11.0); MONOCYTES # (AUTO) 0.4 x10^3/uL (0.3-0.8); MONOCYTES % (AUTO) 9.2 % (0.0-13.0); NEUTROPHILS # (AUTO) 2.9 x10^3/uL (2.2-4.8); NEUTROPHILS % (AUTO) 62.8 % (42.0-75.0); RED BLOOD COUNT 3.38 X10^6/uL (3.5-5.4); RED CELL DISTRIBUTION WIDTH 21.3 % (11.6-16.5); WHITE BLOOD COUNT 4.6 X10^3/uL (3.6-10.0)
[2022-07-09 05:17] LABS: ALBUMIN 2.7 g/dL (3.4-5.0); CALCIUM 8.5 mg/dL (8.5-10.1); CARBON DIOXIDE 35.2 mmol/L (21-32); COR CA(FOR HYPOALB) 9.5 mg/dL (8.5-10.1); CREATININE 1.55 mg/dL (0.55-1.02); MAGNESIUM 2.4 mg/dL (2.0-2.9); TOTAL PROTEIN 5.9 g/dL (6.4-8.2)
[2022-07-09] MEDS: NEURONTIN CAP 300 MG PO SCH ×3 (05:21→21:06)
[2022-07-09] MEDS: ZOSYN VIAL 3.375 GRAMS 3.375 G in NS 100 ML IV 100 ML IV SCH ×3 (05:22→21:05)
[2022-07-09 05:32] LABS: ANISOCYTOSIS 1+; BURR CELLS PRESENT; PLATELET MORPHOLOGY COMMENT NORMAL (NORMAL); SCHISTOCYTES PRESENT
[2022-07-09] MEDS: K-DUR TAB 20 MEQ PO PRN ×2 (05:39→11:41)
--- NOTE | 2022-07-09 06:46 | RAD ---
HISTORYSOBSTUDYCHEST, 1 [id number]/09/2023.TECHNIQUEPA or AP view of the chestFINDINGSThere is silhouetting the left heart border. Similar appearing left worse than right pulmonary airspace and interstitial opacities. This is worst in the left mid to lower lung. Cannot exclude a left pleural effusion. No pneumothorax. Soft tissue attenuation limits evaluation.IMPRESSIONNo significant change compared to prior radiograph.Electronically signed by: John Kuhn (Jul 09, 2022 06:45:09)
[2022-07-09] MEDS: K-DUR TAB 20 MEQ PO SCH ×2 (08:55→21:06)
[2022-07-09] MEDS: LASIX IVP SCH ×2 (08:55→16:28)
[2022-07-09] MEDS: ZAROXOLYN PO SCH (08:56)
[2022-07-09] MEDS: ALDACTONE TAB 25 MG PO SCH (08:56)
[2022-07-09] MEDS: REQUIP PO SCH ×2 (08:56→21:06)
[2022-07-09] MEDS: ELIQUIS PO SCH ×2 (08:56→21:06)
[2022-07-09] MEDS: COMPAZINE PO SCH (08:57)
[2022-07-09] MEDS: PROTONIX TAB 40 MG PO SCH ×2 (08:57→21:07)
[2022-07-09] MEDS: COLCRYS TAB 0.6 MG PO SCH ×2 (08:57→21:06)
[2022-07-09] MEDS: ALECTINIB 150 MG PO SCH ×2 (09:22→21:07)
--- NOTE | 2022-07-09 10:38 | PCM.PROG ---
Progress Note - Progress Note for Day of Date of Exam: 07/09/22 - Subjective Subjective: IS CURRENTLY OBSERVATION STATUS FOR TREATMENT OF BILATERAL LOWER EXTREMITY CELLULITIS, LOWER EXTREMITY EDEMA, HYPOXIA, GENERALIZED WEAKNESS, HYPOKALEMIA, AND HYPOMAGNESEMIA. SHE HAS A CURRENT DIAGNOSIS OF METASTATIC LUNG CANCER WITH METS TO THE BRAIN, AND FACIAL BONES. OTHER MEDICAL HISTORY INCLUDES COPD, SLEEP APNEA, GERD, GOUT, AND HYSTERECTOMY. TODAY, SHE IS ALERT AND ORIENTED, LYING IN BED ON MORNING ROUNDS. SHE CONTINUES TO COMPLAIN OF SWELLING AND PAIN OF THE LOWER EXTREMITIES, GENERALIZED WEAKNESS, AND SHORTNESS OF BREATH. SHE IS CURRENTLY UTILIZING OXYGEN VIA NASAL CANNULA AT 2 LPM. SATURATIONS HAVE REMAINED IN THE 90s WHILE ON OXYGEN. NURSES REPORT THAT SHE HAS HAD AN UNEVENTFUL NIGHT. ON EXAMINATION, HEART IS REGULAR IN RATE AND RHYTHM. BILATERAL LUNGS ARE NOTED WITH DIMINISHED LUNG SOUNDS THROUGHOUT. ABDOMEN IS ROUND, SOFT, AND NON-TENDER WITH NORMAL BOWEL SOUNDS NOTED IN ALL QUADRANTS. LOWER EXTREMITIES ARE NOTED WITH 2+ PITTING EDEMA AND ERYTHEMA. HER VITALS THIS MORNING ARE: 98.5-81-20-97%-108/65. LABS WERE OBTAINED. WBC 4.6, RBC 3.38, HGB 9.8, HCT 29.3, PLT COUNT 200, SODIUM 136, POTASSIUM 3.1, CHLORIDE 94, CARBON DIOXIDE 35.2, BUN 9, CREATININE 1.55, GLUCOSE 122, CALCIUM 8.5, MAGNESIUM 2.4, TOTAL BILI 1.20, AST 72, ALT 25, ALK PHOS 160, BNP 9.0, TOTAL PROTEIN 5.9, ALBUMIN 2.7. BLOOD CULTURES ARE PENDING. A CHEST XRAY WAS OBTAINED AND REVEALED: There is silhouetting the left heart border. Similar appearing left worse than right pulmonary airspace and interstitial opacities. This is worst in the left mid to lower lung. Cannot exclude a left pleural effusion. No pneumothorax. Soft tissue attenuation limits evaluation. SHE HAD A BILATERAL LOWER EXTREMITY VENOUS DOPPLER TWO WEEKS AGO THAT WAS NEGATIVE FOR DVT. SHE IS CURRENTLY RECEIVING ZOSY N 3.375G IV TID, LASIX 40MG IV BID, DILAUDID 1MG IV Q4H PRN, TORADOL 30MG IV Q8H PRN, ELIQUIS 5MG PO BID, THE POTASSIUM AND MAGNESIUM PROTOCOLS, AND HER HOME MEDICATIONS WERE RESUMED. HER HOME MEDICATIONS INCLUDE: COLCRYS, NEURONTIN, NORCO, LINZESS, PROTONIX, COMPAZINE, ALDACTONE, ULTRAM, AND DESYREL. PHYSICAL THERAPY WILL CONTINUE TO WORK WITH PATIENT TODAY. OTHERWISE, WE WILL FOLLOW-UP WITH AM LABS AND CONTINUE TO MONITOR. TIME SPENT ON CLINICAL ASSESSMENT, REVIWING LABS AND IMAGING, DECISION MAKING, AND DOCUMENTATION GREATER THAN 45 MINUTES. - Past Medical Family Social History Past Med/Fam/Surg Hx: No changes since H&P Allergies: Allergies albuterol Allergy (Verified 07/07/22 18:24) ANAPHALEXIS REACTION throat swells up - Review of Systems ROS: No change since H&P - Vital Signs and I&O's Vital Signs: Temperature 98.5 F Pulse Rate [Right Brachial] 81 Respiratory Rate 20 Blood Pressure [Left Arm] 108/65 Blood Pressure [Right Arm] 104/54 Blood Pressure 112/51 O2 Sat by Pulse Oximetry 97 Intake and Output: Intake & Output 07/06/22 07/07/22 07/08/22 07/09/22 11:59 11:59 11:59 11:59 Intake Total 1030 / 1030 1880 / 1880 Balance 1030 / 1030 1880 / 1880 - Physical Exam Oriented: Normal Eyes: Normal Ear: Normal Nose: Normal Throat: Normal Respiratory: Generalized, Diminished Cardiovascular: Edema (BILATERAL LOWER EXTREMITIES 2+ PITTING ) : Normal Auscultation: Bowel Sounds: Normal Palpation: Normal Tenderness: Normal Skin: Red (BILATERAL LOWER EXTREMITIES ), Tender, Hot Musculoskeletal: Right, Left, Leg, Swelling, Tender Psychiatric: Normal Mood Description: Calm Affect: Normal Speech Pattern: Clear, Appropriate - Laboratory and Diagnostics Result Diagrams: 07/09/22 04:27 07/09/22 04:27 Labs: Laboratory WBC 4.6 X10^3/uL (3.6-10.0) 07/09/22 04:27 RBC 3.38 X10^6/uL (3.5-5.4) L 07/09/22 04:27 Hgb 9.8 g/dL (12.0-16.0) L 07/09/22 04:27 Hct 29.3 % (36.0-47.0) L 07/09/22 04:27 MCV 86.6 fL (80.0-100.0) 07/09/22 04:27 MCH 28.9 pg (27.0-34.0) 07/09/22 04: MCHC 33.4 g/dL (33.0-35.0) 07/09/22 04: RDW 21.3 % (11.6-16.5) H 07/09/22 04:27 Plt Count 200 X10^3/uL (150.0-450.0) 07/09/22 04:27 Plt Count Comment Adequate (ADEQUATE) 07/09/22 04: MPV 10.4 fL (7.4-11.0) 07/09/22 04:27 Neut % (Auto) 62.8 % (42.0-75.0) 07/09/22 04:27 Lymph % (Auto) 24.5 % (21.0-51.0) 07/09/22 04:27 [place] % (Auto) 9.2 % (0.0-13.0) 07/09/22 04:27 Eos % (Auto) 2.9 % (0.9-2.9) 07/09/22 04:27 Baso % (Auto) 0.6 % (0.2-1.0) 07/09/22 04:27 Neut # (Auto) 2.9 x10^3/uL (2.2-4.8) 07/09/22 04:27 Lymph # (Auto) 1.1 X10^3/uL (1.3-2.9) L 07/09/22 04:27 [place] # (Auto) 0.4 x10^3/uL (0.3-0.8) 07/09/22 04:27 Eos # (Auto) 0.1 x10^3/uL (0.0-0.2) 07/09/22 04:27 Baso # (Auto) 0.0 X10^3/uL (0.0-0.1) 07/09/22 04:27 Absolute Nucleated RBC 0.1 /100WBC 07/09/22 04:27 Plt Morphology Comment Normal (NORMAL) 07/09/22 04:27 RBC Morphology Abnormal (NORMAL) A 07/09/22 04:27 Anisocytosis 1+ A 07/09/22 04:27 [place] Cells Present 07/09/22 04:27 Schistocytes Present 07/09/22 04:27 Sodium 136 mmol/L (136-145) 07/09/22 04:27 Corrected Sodium 137 mmol/L (136-145) 07/09/22 04:27 Potassium 3.1 mmol/L (3.5-5.1) L 07/09/22 04:27 Chloride 94 mmol/L (98-107) L 07/09/22 04:27 Carbon Dioxide 35.2 mmol/L (21-32) H 07/09/22 04:27 BUN 9 mg/dL (7-18) 07/09/22 04:27 Creatinine 1.55 mg/dL (0.55-1.02) H 07/09/22 04:27 Est GFR (MDRD) Af Amer 44 (>60) L 07/09/22 04:27 Est GFR (MDRD) Non-Af 37 (>60) L 07/09/22 04:27 Glucose 122 mg/dL (65-99) H 07/09/22 04:27 Calcium 8.5 mg/dL (8.5-10.1) 07/09/22 04:27 Corrected Calcium 9.5 mg/dL (8.5-10.1) 07/09/22 04:27 Magnesium 2.4 mg/dL (2.0-2.9) 07/09/22 04:27 Total Bilirubin 1.20 mg/dL (0.2-1.0) H 07/09/22 04:27 AST 72 Units/L (15-37) H 07/09/22 04:27 ALT 25 Units/L (12-78) 07/09/22 04:27 Alkaline Phosphatase 160 Units/L (46-116) H 07/09/22 04:27 B-Natriuretic Peptide 9.0 pg/mL (0-79) 07/09/22 04:27 Total Protein 5.9 g/dL (6.4-8.2) L 07/09/22 04:27 Albumin 2.7 g/dL (3.4-5.0) L 07/09/22 04:27 Globulin 3.2 g/dL (2.5-4.5) 07/09/22 04:27 Albumin/Globulin Ratio 0.8 Ratio (1.1-2.1) L 07/09/22 04:27 - Plan (1) Bilateral lower leg cellulitis Status: Acute Plan: ZOSYN 3.375G IV TID, LASIX 40MG IV BID, DILAUDID 1MG IV Q4H PRN, TORADOL 30MG IV Q8H PRN, ELIQUIS 5MG PO BID, THE POTASSIUM AND MAGNESIUM PROTOCOLS, AND HER HOME MEDICATIONS WERE RESUMED. DAILY LABS (2) Bilateral lower extremity edema Status: Acute (3) Hypomagnesemia Status: Acute (4) Hypokalemia Status: Acute (5) Weakness generalized Status: Acute Plan: CONTINUE PHYSICAL THERAPY (6) Lung cancer metastatic to bone Status: Chronic
[2022-07-09] MEDS: DESYREL PO SCH (21:07)
[2022-07-10 04:48] LABS: BASOPHILS % (AUTO) 0.5 % (0.2-1.0); EOSINOPHILS # (AUTO) 0.1 x10^3/uL (0.0-0.2); EOSINOPHILS % (AUTO) 2.1 % (0.9-2.9); HEMATOCRIT 30.3 % (36.0-47.0); HEMOGLOBIN 10.2 g/dL (12.0-16.0); LYMPHOCYTES # (AUTO) 1.1 X10^3/uL (1.3-2.9); LYMPHOCYTES % (AUTO) 29.2 % (21.0-51.0); MEAN CORPUSCULAR HEMOGLOBIN 29.4 pg (27.0-34.0); MEAN CORPUSCULAR HGB CONC 33.8 g/dL (33.0-35.0); MEAN CORPUSCULAR VOLUME 86.9 fL (80.0-100.0); MEAN PLATELET VOLUME 10.9 fL (7.4-11.0); MONOCYTES # (AUTO) 0.4 x10^3/uL (0.3-0.8); MONOCYTES % (AUTO) 11.1 % (0.0-13.0); NEUTROPHILS # (AUTO) 2.2 x10^3/uL (2.2-4.8); NEUTROPHILS % (AUTO) 57.1 % (42.0-75.0); RED BLOOD COUNT 3.48 X10^6/uL (3.5-5.4); RED CELL DISTRIBUTION WIDTH 21.2 % (11.6-16.5); WHITE BLOOD COUNT 3.8 X10^3/uL (3.6-10.0)
[2022-07-10 05:05] LABS: ALBUMIN 2.7 g/dL (3.4-5.0); CALCIUM 8.6 mg/dL (8.5-10.1); CARBON DIOXIDE 37.5 mmol/L (21-32); COR CA(FOR HYPOALB) 9.6 mg/dL (8.5-10.1); CREATININE 1.59 mg/dL (0.55-1.02); TOTAL PROTEIN 6.3 g/dL (6.4-8.2)
[2022-07-10 05:17] LABS: PLATELET MORPHOLOGY COMMENT NORMAL (NORMAL)
[2022-07-10 05:18] LABS: ANISOCYTOSIS 1+; BURR CELLS PRESENT; OVALOCYTES PRESENT; SCHISTOCYTES PRESENT; TEAR DROP CELLS PRESENT
[2022-07-10] MEDS: ZOSYN VIAL 3.375 GRAMS 3.375 G in NS 100 ML IV 100 ML IV SCH ×3 (05:54→21:16)
[2022-07-10] MEDS: NEURONTIN CAP 300 MG PO SCH ×3 (05:54→21:18)
--- NOTE | 2022-07-10 08:12 | RAD ---
HISTORYSOB, lung cancer, left lower lobe removedSTUDYAP chestCOMPARISONMarch 2022FINDINGSStable cardiomegaly. Diffuse increase in pulmonary markings especially in the left lower lobe. There is no definite pneumothorax or significant pleural effusion identified.IMPRESSIONNo change. Nonspecific infiltrates as described on recent CTA chest. There is no lobar consolidation or mass formation identified.Electronically signed by: VIRGINIA BROWN (Jul 10, 2022 08:11:07)
[2022-07-10] MEDS: PROTONIX TAB 40 MG PO SCH ×2 (09:05→21:18)
[2022-07-10] MEDS: COLCRYS TAB 0.6 MG PO SCH ×2 (09:05→21:18)
[2022-07-10] MEDS: COMPAZINE PO SCH (09:05)
[2022-07-10] MEDS: REQUIP PO SCH ×2 (09:06→21:16)
[2022-07-10] MEDS: K-DUR TAB 20 MEQ PO SCH ×2 (09:06→21:19)
[2022-07-10] MEDS: ELIQUIS PO SCH ×2 (09:06→21:19)
[2022-07-10] MEDS: ALECTINIB 150 MG PO SCH ×2 (09:07→21:21)
[2022-07-10] MEDS: ZAROXOLYN PO SCH (09:07)
[2022-07-10] MEDS: MAGNESIUM SULFATE 1 GRAM/100 mL PREMIX 1 G/100 ML BAG IV PRN (11:44)
[2022-07-10] MEDS: LASIX IVP SCH ×2 (11:44→18:15)
[2022-07-10] MEDS: ALDACTONE TAB 25 MG PO SCH (11:45)
--- NOTE | 2022-07-10 11:46 | PCM.PROG ---
Progress Note Progress Note for Day of Date of Exam: 07/10/22 Subjective Subjective: Patient seen at bedside,no acute events overnight. Patient continues to complain of leg soreness and nausea. She is currently being treated for b/l LE cellulitis, edema and respiratory distress. She is currently on 2L NC. Her K was noted to be 2.9 this morning. She reports tolerating PO intake. Labs/imaging reviewed: K 2.9 Mag 1.9 BUN/Cr: 13/1.59 Hgb 10.2 CXR: non specific infilrates Plan: Replace K and Mag. Continue IV Zosyn. Patient's LE redness seems to be improved, still has some edema. Continue lasix. Add Zofran prn. Wean O2 as tolerated. Continue home medications. Monitor AM labs/imaging. Past Medical Family Social History Past Med/Fam/Surg Hx: No changes since H&P Allergies: Allergies albuterol Allergy (Verified 07/07/22 18:24) ANAPHALEXIS REACTION throat swells up Review of Systems ROS: No change since H&P Vital Signs and I&O's Vital Signs: Temperature 98.3 F Pulse Rate [Right Brachial] 112 Respiratory Rate 20 Blood Pressure [Left Arm] 124/56 Blood Pressure [Right Arm] 104/54 Blood Pressure 112/51 O2 Sat by Pulse Oximetry 95 Intake and Output: Intake & Output 07/07/22 07/08/22 07/09/22 07/10/22 23:59 23:59 23:59 23:59 Intake Total 580 / 580 2009 357 / 357 Balance 580 / 580 2009 357 / 357 Physical Exam Oriented: Normal Eyes: Normal Ear: Normal Nose: Normal Throat: Normal Respiratory: Generalized and Diminished Cardiovascular: Edema Auscultation: Bowel Sounds: Normal Tenderness: Normal Skin: Tender (mild b/l LE tenderness, erythema improved) Musculoskeletal: Right, Left, Leg and Swelling Psychiatric: Normal Mood Description: Calm Affect: Normal Speech Pattern: Clear and Appropriate Laboratory and Diagnostics Result Diagrams: 07/10/22 04:20 07/10/22 04:20 Labs: 07/07/22 20:55 Blood Blood Culture - Preliminary 07/07/22 20:35 Blood Blood Culture - Preliminary Laboratory WBC 3.8 X10^3/uL (3.6-10.0) 07/10/22 04:20 RBC 3.48 X10^6/uL (3.5-5.4) L 07/10/22 04:20 Hgb 10.2 g/dL (12.0-16.0) L 07/10/22 04:20 Hct 30.3 % (36.0-47.0) L 07/10/22 04:20 MCV 86.9 fL (80.0-100.0) 07/10/22 04:20 MCH 29.4 pg (27.0-34.0) 07/10/22 04:20 MCHC 33.8 g/dL (33.0-35.0) 07/10/22 04:20 RDW 21.2 % (11.6-16.5) H 07/10/22 04:20 Plt Count 199 X10^3/uL (150.0-450.0) 07/10/22 04:20 Plt Count Comment Adequate (ADEQUATE) 07/10/22 04:20 MPV 10.9 fL (7.4-11.0) 07/10/22 04:20 Neut % (Auto) 57.1 % (42.0-75.0) 07/10/22 04:20 Lymph % (Auto) 29.2 % (21.0-51.0) 07/10/22 04:20 [place] % (Auto) 11.1 % (0.0-13.0) 07/10/22 04:20 Eos % (Auto) 2.1 % (0.9-2.9) 07/10/22 04:20 Baso % (Auto) 0.5 % (0.2-1.0) 07/10/22 04:20 Neut # (Auto) 2.2 x10^3/uL (2.2-4.8) 07/10/22 04:20 Lymph # (Auto) 1.1 X10^3/uL (1.3-2.9) L 07/10/22 04:20 [place] # (Auto) 0.4 x10^3/uL (0.3-0.8) 07/10/22 04:20 Eos # (Auto) 0.1 x10^3/uL (0.0-0.2) 07/10/22 04:20 Baso # (Auto) 0.0 X10^3/uL (0.0-0.1) 07/10/22 04:20 Absolute Nucleated RBC 0.1 /100WBC 07/10/22 04:20 Plt Morphology Comment Normal (NORMAL) 07/10/22 04:20 RBC Morphology Abnormal (NORMAL) A 07/10/22 04:20 Anisocytosis 1+ A 07/10/22 04:20 Tear Drop Cells Present 07/10/22 04:20 Ovalocytes Present 07/10/22 04:20 [place] Cells Present 07/10/22 04:20 Schistocytes Present 07/10/22 04:20 Sodium 133 mmol/L (136-145) L 07/10/22 04:20 Corrected Sodium 134 mmol/L (136-145) L 07/10/22 04:20 Potassium 2.9 mmol/L (3.5-5.1) L* 07/10/22 04:20 Chloride 92 mmol/L (98-107) L 07/10/22 04:20 Carbon Dioxide 37.5 mmol/L (21-32) H 07/10/22 04:20 BUN 13 mg/dL (7-18) 07/10/22 04:20 Creatinine 1.59 mg/dL (0.55-1.02) H 07/10/22 04:20 Est GFR (MDRD) Af Amer 43 (>60) L 07/10/22 04:20 Est GFR (MDRD) Non-Af 36 (>60) L 07/10/22 04:20 Glucose 125 mg/dL (65-99) H 07/10/22 04:20 Calcium 8.6 mg/dL (8.5-10.1) 07/10/22 04:20 Corrected Calcium 9.6 mg/dL (8.5-10.1) 07/10/22 04:20 Magnesium 1.9 mg/dL (2.0-2.9) L 07/10/22 04:20 Total Bilirubin 1.00 mg/dL (0.2-1.0) 07/10/22 04:20 AST 86 Units/L (15-37) H 07/10/22 04:20 ALT 28 Units/L (12-78) 07/10/22 04:20 Alkaline Phosphatase 166 Units/L (46-116) H 07/10/22 04:20 B-Natriuretic Peptide 7.6 pg/mL (0-79) 07/10/22 04:20 Total Protein 6.3 g/dL (6.4-8.2) L 07/10/22 04:20 Albumin 2.7 g/dL (3.4-5.0) L 07/10/22 04:20 Globulin 3.6 g/dL (2.5-4.5) 07/10/22 04:20 Albumin/Globulin Ratio 0.8 Ratio (1.1-2.1) L 07/10/22 04:20 Plan (1) Bilateral lower leg cellulitis: Status: Acute (2) Bilateral lower extremity edema: Status: Acute (3) Hypomagnesemia: Status: Acute (4) Hypokalemia: Status: Acute (5) Weakness generalized: Status: Acute Plan: CONTINUE PHYSICAL THERAPY (6) 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
[2022-07-10] MEDS: ZOFRAN INJ 4 MG VIAL IVP PRN (12:29)
[2022-07-10] MEDS: DESYREL PO SCH (21:17)
[2022-07-11] MEDS ORDERED: NS 100 ML IV 100 ML IV ONE (00:02)
[2022-07-11] MEDS: MAGNESIUM SULFATE 1 GRAM/100 mL PREMIX 1 G/100 ML BAG IV PRN (00:30)
[2022-07-11] MEDS: NEURONTIN CAP 300 MG PO SCH ×3 (05:12→21:16)
[2022-07-11] MEDS: ZOSYN VIAL 3.375 GRAMS 3.375 G in NS 100 ML IV 100 ML IV SCH ×3 (05:15→21:13)
[2022-07-11 05:18] LABS: EOSINOPHILS # (AUTO) 0.1 x10^3/uL (0.0-0.2); EOSINOPHILS % (AUTO) 1.7 % (0.9-2.9); HEMATOCRIT 31.8 % (36.0-47.0); HEMOGLOBIN 10.8 g/dL (12.0-16.0); LYMPHOCYTES # (AUTO) 1.3 X10^3/uL (1.3-2.9); LYMPHOCYTES % (AUTO) 28.3 % (21.0-51.0); MEAN CORPUSCULAR HEMOGLOBIN 29.4 pg (27.0-34.0); MEAN CORPUSCULAR VOLUME 86.5 fL (80.0-100.0); MEAN PLATELET VOLUME 10.5 fL (7.4-11.0); MONOCYTES # (AUTO) 0.6 x10^3/uL (0.3-0.8); NEUTROPHILS # (AUTO) 2.7 x10^3/uL (2.2-4.8); RED BLOOD COUNT 3.68 X10^6/uL (3.5-5.4); RED CELL DISTRIBUTION WIDTH 20.6 % (11.6-16.5); WHITE BLOOD COUNT 4.8 X10^3/uL (3.6-10.0)
[2022-07-11 05:38] LABS: ANISOCYTOSIS 1+; OVALOCYTES PRESENT; PLATELET MORPHOLOGY COMMENT NORMAL (NORMAL); SCHISTOCYTES PRESENT; TEAR DROP CELLS PRESENT
[2022-07-11 06:03] LABS: ALBUMIN 2.9 g/dL (3.4-5.0); CARBON DIOXIDE 38.9 mmol/L (21-32); COR CA(FOR HYPOALB) 9.9 mg/dL (8.5-10.1); CREATININE 1.66 mg/dL (0.55-1.02); MAGNESIUM 2.6 mg/dL (2.0-2.9); TOTAL PROTEIN 6.7 g/dL (6.4-8.2)
--- NOTE | 2022-07-11 08:20 | RAD ---
HISTORYLung cancer, left lower lobe removedSTUDYAP [id number]/2023FINDINGSSimilar heart size with diffuse infiltrates, unchanged in extent and distribution. There is no additional consolidation, pneumothorax or developing pleural effusion.IMPRESSIONNo change since 1 day prior.Electronically signed by: VIRGINIA BROWN (Jul 11, 2022 08:18:58)
[2022-07-11] MEDS: ALDACTONE TAB 25 MG PO SCH (08:23)
[2022-07-11] MEDS: PROTONIX TAB 40 MG PO SCH ×2 (08:23→21:15)
[2022-07-11] MEDS: COMPAZINE PO SCH (08:23)
[2022-07-11] MEDS: LASIX IVP SCH (08:23)
[2022-07-11] MEDS: ELIQUIS PO SCH ×2 (08:23→21:14)
[2022-07-11] MEDS: COLCRYS TAB 0.6 MG PO SCH ×2 (08:23→21:15)
[2022-07-11] MEDS: REQUIP PO SCH ×2 (08:24→21:13)
[2022-07-11] MEDS: K-DUR TAB 20 MEQ PO SCH ×3 (08:24→21:16)
[2022-07-11] MEDS: ZAROXOLYN PO SCH (08:24)
[2022-07-11] MEDS: ALECTINIB 150 MG PO SCH ×2 (08:25→21:25)
[2022-07-11] MEDS: ZOFRAN INJ 4 MG VIAL IVP PRN ×2 (08:40→14:00)
--- NOTE | 2022-07-11 11:56 | PCM.PROG ---
Progress Note Progress Note for Day of Date of Exam: 07/11/22 Subjective Subjective: Patient seen at bedside,no acute events overnight. She still has some leg soreness, redness and swelling has resolved. She has been ambulating in the room. K is still low at 2.9. She reports some cramps in her legs. Labs/imaging reviewed: K 2.9 BUN/Cr 16/1.66 CXR: no change Plan: Replace K and Mag. Increase to KCl 40 mEQ TID. Change lasix to once daily. Continue IV Zosyn. Zofran prn. Wean O2 as tolerated. Continue home medications. Monitor AM labs/imaging. Past Medical Family Social History Past Med/Fam/Surg Hx: No changes since H&P Allergies: Allergies albuterol Allergy (Verified 07/07/22 18:24) ANAPHALEXIS REACTION throat swells up Review of Systems ROS: No change since H&P Vital Signs and I&O's Vital Signs: Temperature 98.4 F Pulse Rate [Right Brachial] 84 Respiratory Rate 20 Blood Pressure [Left Arm] 108/55 Blood Pressure [Right Arm] 104/54 Blood Pressure 112/51 O2 Sat by Pulse Oximetry 98 Intake and Output: Intake & Output 07/08/22 07/09/22 07/10/22 07/12/22 23:59 23:59 23:59 00:59 Intake Total 2009 1607 / 1607 164 / 164 Balance 2009 1607 / 1607 164 / 164 Physical Exam Oriented: Normal Eyes: Normal Ear: Normal Nose: Normal Throat: Normal Respiratory: Generalized and Diminished Cardiovascular: Edema Auscultation: Bowel Sounds: Normal Tenderness: Normal Skin: Tender (mild b/l LE tenderness, erythema improved) Musculoskeletal: Right, Left, Leg and Swelling Psychiatric: Normal Mood Description: Calm Affect: Normal Speech Pattern: Clear and Appropriate Laboratory and Diagnostics Result Diagrams: 07/11/22 04:55 07/11/22 04:55 Labs: 07/07/22 20:55 Blood Blood Culture - Preliminary 07/07/22 20:35 Blood Blood Culture - Preliminary Laboratory WBC 4.8 X10^3/uL (3.6-10.0) 07/11/22 04:55 RBC 3.68 X10^6/uL (3.5-5.4) 07/11/22 04:55 Hgb 10.8 g/dL (12.0-16.0) L 07/11/22 04:55 Hct 31.8 % (36.0-47.0) L 07/11/22 04:55 MCV 86.5 fL (80.0-100.0) 07/11/22 04:55 MCH 29.4 pg (27.0-34.0) 07/11/22 04:55 MCHC 34.0 g/dL (33.0-35.0) 07/11/22 04:55 RDW 20.6 % (11.6-16.5) H 07/11/22 04:55 Plt Count 217 X10^3/uL (150.0-450.0) 07/11/22 04:55 Plt Count Comment Adequate (ADEQUATE) 07/11/22 04:55 MPV 10.5 fL (7.4-11.0) 07/11/22 04:55 Neut % (Auto) 57.0 % (42.0-75.0) 07/11/22 04:55 Lymph % (Auto) 28.3 % (21.0-51.0) 07/11/22 04:55 [place] % (Auto) 12.0 % (0.0-13.0) 07/11/22 04:55 Eos % (Auto) 1.7 % (0.9-2.9) 07/11/22 04:55 Baso % (Auto) 1.0 % (0.2-1.0) 07/11/22 04:55 Neut # (Auto) 2.7 x10^3/uL (2.2-4.8) 07/11/22 04:55 Lymph # (Auto) 1.3 X10^3/uL (1.3-2.9) 07/11/22 04:55 [place] # (Auto) 0.6 x10^3/uL (0.3-0.8) 07/11/22 04:55 Eos # (Auto) 0.1 x10^3/uL (0.0-0.2) 07/11/22 04:55 Baso # (Auto) 0.0 X10^3/uL (0.0-0.1) 07/11/22 04:55 Absolute Nucleated RBC 0.1 /100WBC 07/11/22 04:55 Plt Morphology Comment Normal (NORMAL) 07/11/22 04:55 RBC Morphology Abnormal (NORMAL) A 07/11/22 04:55 Anisocytosis 1+ A 07/11/22 04:55 Tear Drop Cells Present 07/11/22 04:55 Ovalocytes Present 07/11/22 04:55 [place] Cells Present 07/10/22 04:20 Schistocytes Present 07/11/22 04:55 Sodium 130 mmol/L (136-145) L 07/11/22 04:55 Corrected Sodium 131 mmol/L (136-145) L 07/11/22 04:55 Potassium 2.9 mmol/L (3.5-5.1) L* 07/11/22 04:55 Chloride 88 mmol/L (98-107) L 07/11/22 04:55 Carbon Dioxide 38.9 mmol/L (21-32) H 07/11/22 04:55 BUN 16 mg/dL (7-18) 07/11/22 04:55 Creatinine 1.66 mg/dL (0.55-1.02) H 07/11/22 04:55 Est GFR (MDRD) Af Amer 41 (>60) L 07/11/22 04:55 Est GFR (MDRD) Non-Af 34 (>60) L 07/11/22 04:55 Glucose 130 mg/dL (65-99) H 07/11/22 04:55 Calcium 9.0 mg/dL (8.5-10.1) 07/11/22 04:55 Corrected Calcium 9.9 mg/dL (8.5-10.1) 07/11/22 04:55 Magnesium 2.6 mg/dL (2.0-2.9) 07/11/22 04:55 Total Bilirubin 1.10 mg/dL (0.2-1.0) H 07/11/22 04:55 AST 89 Units/L (15-37) H 07/11/22 04:55 ALT 30 Units/L (12-78) 07/11/22 04:55 Alkaline Phosphatase 162 Units/L (46-116) H 07/11/22 04:55 B-Natriuretic Peptide 7.6 pg/mL (0-79) 07/10/22 04:20 Total Protein 6.7 g/dL (6.4-8.2) 07/11/22 04:55 Albumin 2.9 g/dL (3.4-5.0) L 07/11/22 04:55 Globulin 3.8 g/dL (2.5-4.5) 07/11/22 04:55 Albumin/Globulin Ratio 0.8 Ratio (1.1-2.1) L 07/11/22 04:55 Plan (1) Bilateral lower leg cellulitis: Status: Acute (2) Bilateral lower extremity edema: Status: Acute (3) Hypomagnesemia: Status: Acute (4) Hypokalemia: Status: Acute (5) Weakness generalized: Status: Acute Plan: CONTINUE PHYSICAL THERAPY (6) 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
[2022-07-11] MEDS: DESYREL PO SCH (21:15)
[2022-07-12] MEDS: ZOSYN VIAL 3.375 GRAMS 3.375 G in NS 100 ML IV 100 ML IV SCH ×3 (05:19→22:02)
[2022-07-12] MEDS: NEURONTIN CAP 300 MG PO SCH ×3 (05:20→21:59)
[2022-07-12] MEDS: K-DUR TAB 20 MEQ PO SCH ×3 (05:20→21:59)
[2022-07-12 05:50] LABS: BASOPHILS % (AUTO) 1.1 % (0.2-1.0); EOSINOPHILS # (AUTO) 0.1 x10^3/uL (0.0-0.2); EOSINOPHILS % (AUTO) 2.6 % (0.9-2.9); HEMATOCRIT 30.7 % (36.0-47.0); HEMOGLOBIN 10.4 g/dL (12.0-16.0); LYMPHOCYTES # (AUTO) 1.3 X10^3/uL (1.3-2.9); MEAN CORPUSCULAR HEMOGLOBIN 29.3 pg (27.0-34.0); MEAN CORPUSCULAR HGB CONC 33.8 g/dL (33.0-35.0); MEAN CORPUSCULAR VOLUME 86.7 fL (80.0-100.0); MONOCYTES # (AUTO) 0.6 x10^3/uL (0.3-0.8); MONOCYTES % (AUTO) 12.8 % (0.0-13.0); NEUTROPHILS # (AUTO) 2.5 x10^3/uL (2.2-4.8); NEUTROPHILS % (AUTO) 54.5 % (42.0-75.0); RED BLOOD COUNT 3.54 X10^6/uL (3.5-5.4); RED CELL DISTRIBUTION WIDTH 20.4 % (11.6-16.5); WHITE BLOOD COUNT 4.5 X10^3/uL (3.6-10.0)
[2022-07-12 05:58] LABS: ANISOCYTOSIS 1+; PLATELET MORPHOLOGY COMMENT NORMAL (NORMAL); TEAR DROP CELLS PRESENT
[2022-07-12 05:59] LABS: BURR CELLS PRESENT; SCHISTOCYTES PRESENT
[2022-07-12 06:02] LABS: ALBUMIN 2.8 g/dL (3.4-5.0); CALCIUM 8.9 mg/dL (8.5-10.1); CARBON DIOXIDE 38.2 mmol/L (21-32); COR CA(FOR HYPOALB) 9.9 mg/dL (8.5-10.1); CREATININE 1.79 mg/dL (0.55-1.02); TOTAL PROTEIN 6.2 g/dL (6.4-8.2)
[2022-07-12] MEDS: COLCRYS TAB 0.6 MG PO SCH ×2 (08:35→22:01)
[2022-07-12] MEDS: ZAROXOLYN PO SCH (08:35)
[2022-07-12] MEDS: ELIQUIS PO SCH ×2 (08:36→22:01)
[2022-07-12] MEDS: COMPAZINE PO SCH (08:36)
[2022-07-12] MEDS: PROTONIX TAB 40 MG PO SCH ×2 (08:36→22:01)
[2022-07-12] MEDS: ALDACTONE TAB 25 MG PO SCH (08:36)
[2022-07-12] MEDS: ALECTINIB 150 MG PO SCH ×2 (08:43→22:02)
[2022-07-12] MEDS ORDERED: LASIX IVP SCH (09:00)
[2022-07-12] MEDS: REQUIP PO SCH ×2 (09:42→21:58)
[2022-07-12] MEDS: NS 1,000 ML IV 1,000 ML IV SCH (11:45)
[2022-07-12] MEDS: K-DUR TAB 20 MEQ PO PRN (13:45)
--- NOTE | 2022-07-12 14:48 | RAD ---
HISTORYHypoxia SOB, left lobectomySTUDYAP chestCOMPARISONMarch 2022FINDINGSThere is no significant change in appearance of the chest since 1 day earlier. The left heart border remains obscured by adjacent airspace involvement in the left upper lobe. The right lung remains clear.IMPRESSIONNo change. Findings in the left lung are consistent with inflammatory involvement as suggested on CTA chest 06/30/2022.Electronically signed by: VIRGINIA BROWN (Jul 12, 2022 14:46:41)
[2022-07-12] MEDS: ZOFRAN INJ 4 MG VIAL IVP PRN (15:59)
[2022-07-12] MEDS: DESYREL PO SCH (21:59)
[2022-07-13] MEDS: NS 1,000 ML IV 1,000 ML IV SCH
[2022-07-13] MEDS: ZOSYN VIAL 3.375 GRAMS 3.375 G in NS 100 ML IV 100 ML IV SCH (05:48)
[2022-07-13] MEDS: NEURONTIN CAP 300 MG PO SCH (05:48)
[2022-07-13] MEDS: K-DUR TAB 20 MEQ PO SCH (05:48)
[2022-07-13 06:17] LABS: ALBUMIN 2.8 g/dL (3.4-5.0); CALCIUM 8.6 mg/dL (8.5-10.1); COR CA(FOR HYPOALB) 9.6 mg/dL (8.5-10.1); CREATININE 1.77 mg/dL (0.55-1.02); TOTAL PROTEIN 6.1 g/dL (6.4-8.2)
[2022-07-13 06:24] LABS: EOSINOPHILS # (AUTO) 0.1 x10^3/uL (0.0-0.2); MONOCYTES # (AUTO) 0.4 x10^3/uL (0.3-0.8); NEUTROPHILS # (AUTO) 2.1 x10^3/uL (2.2-4.8)
[2022-07-13 06:26] LABS: BASOPHILS % (AUTO) 1.1 % (0.2-1.0); EOSINOPHILS % (AUTO) 2.1 % (0.9-2.9); HEMATOCRIT 31.4 % (36.0-47.0); HEMOGLOBIN 10.4 g/dL (12.0-16.0); LYMPHOCYTES % (AUTO) 27.4 % (21.0-51.0); MEAN CORPUSCULAR HGB CONC 33.1 g/dL (33.0-35.0); MEAN CORPUSCULAR VOLUME 87.6 fL (80.0-100.0); MEAN PLATELET VOLUME 11.2 fL (7.4-11.0); MONOCYTES % (AUTO) 11.8 % (0.0-13.0); NEUTROPHILS % (AUTO) 57.6 % (42.0-75.0); RED BLOOD COUNT 3.59 X10^6/uL (3.5-5.4); WHITE BLOOD COUNT 3.7 X10^3/uL (3.6-10.0)
[2022-07-13 08:20] VITALS: BP 96/58
[2022-07-13] MEDS: REQUIP PO SCH (08:22)
[2022-07-13] MEDS: PROTONIX TAB 40 MG PO SCH (08:23)
[2022-07-13] MEDS: COMPAZINE PO SCH (08:23)
[2022-07-13] MEDS: ALECTINIB 150 MG PO SCH (08:23)
[2022-07-13] MEDS: ZAROXOLYN PO SCH (08:23)
[2022-07-13] MEDS: ALDACTONE TAB 25 MG PO SCH (08:23)
[2022-07-13] MEDS: COLCRYS TAB 0.6 MG PO SCH (08:23)
[2022-07-13] MEDS: ELIQUIS PO SCH (08:23)
--- NOTE | 2022-07-13 09:19 | PCM.PROG ---
Progress Note - Progress Note for Day of Date of Exam: 07/12/22 - Subjective Subjective: IS CURRENTLY OBSERVATION STATUS FOR TREATMENT OF BILATERAL LOWER EXTREMITY CELLULITIS, LOWER EXTREMITY EDEMA, HYPOXIA, GENERALIZED WEAKNESS, HYPOKALEMIA, AND HYPOMAGNESEMIA. SHE HAS A CURRENT DIAGNOSIS OF METASTATIC LUNG CANCER WITH METS TO THE BRAIN, AND FACIAL BONES. OTHER MEDICAL HISTORY INCLUDES COPD, SLEEP APNEA, GERD, GOUT, AND HYSTERECTOMY. TODAY, SHE IS ALERT AND ORIENTED, LYING IN BED ON MORNING ROUNDS. SHE CONTINUES TO COMPLAIN OF PAIN OF THE LOWER EXTREMITIES AND GENERALIZED WEAKNESS. SHE DENIES SHORTNESS OF BREATH. SHE ALSO REPORTS MUSCLE TWITCHING OF THE UPPER EX TREMITIES. SHE IS CURRENTLY UTILIZING OXYGEN VIA NASAL CANNULA AT 2 LPM. SATURATIONS HAVE REMAINED IN THE 90s WHILE ON OXYGEN. NURSES REPORT THAT SHE HAS HAD AN UNEVENTFUL NIGHT. ON EXAMINATION, HEART IS REGULAR IN RATE AND RHYTHM. BILATERAL LUNGS ARE NOTED WITH DIMINISHED LUNG SOUNDS THROUGHOUT. ABDOMEN IS ROUND, SOFT, AND NON-TENDER WITH NORMAL BOWEL SOUNDS NOTED IN ALL QUADRANTS. LOWER EXTREMITIES ARE NOTED WITH 2+ PITTING EDEMA AND ERYTHEMA. HER VITALS THIS MORNING ARE: 99.5-85-18-95%-96/58. LABS WERE OBTAINED. WBC 4.5, RBC 3.54, HGB 10.4, HCT 30.7, PLT COUNT 220, SODIUM 128, POTASSIUM 3.9, CHLORIDE 90, CARBON DIOXIDE 38.2, BUN 23, CREATININE 1.79, GLUCOSE 116, CALCIUM 8.9, TOTAL BILI 1. 00, AST 77, ALT 26, ALK PHOS 148, TOTAL PROTEIN 6.2, ALBUMIN 2.8. BLOOD CULTURES ARE PENDING. A CHEST XRAY WAS OBTAINED AND REVEALED: Similar heart size with diffuse infiltrates, unchanged in extent and distribution. There is no additional consolidation, pneumothorax or developing pleural effusion. SHE HAD A BILATERAL LOWER EXTREMITY VENOUS DOPPLER TWO WEEKS AGO THAT WAS NEGATIVE FOR DVT. SHE IS CURRENTLY RECEIVING ZOSYN 3.375G IV TID, LASIX 40MG IV BID, DILAUDID 1MG IV Q4H PRN, TORADOL 30MG IV Q8H PRN, ELIQUIS 5MG PO BID, THE POTASSIUM AND MAGNESIUM PROTOCOLS, AND HER HOME MEDICATIONS WERE RESUMED. HER HOME MEDICATIONS INCLUDE: COLCRYS, NEURONTIN, NORCO, LINZESS, PROTONIX, COMPAZINE, ALDACTONE, ULTRAM, AND DESYREL. TODAY, WE WILL HOLD HER LASIX AND ADD NORMAL SALINE AT 50 ML/HR DUE TO HYPONATREMIA. PHYSICAL THERAPY WILL CONTINUE TO WORK WITH PATIENT TODAY. OTHERWISE, WE WILL FOLLOW-UP WITH AM LABS AND CONTINUE TO MONITOR. TIME SPENT ON CLINICAL ASSESSMENT, REVIWING LABS AND IMAGING, DECISION MAKING, AND DOCUMENTATION GREATER THAN 45 MINUTES. - Past Medical Family Social History Past Med/Fam/Surg Hx: No changes since H&P Allergies: Allergies albuterol Allergy (Verified 07/07/22 18:24) ANAPHALEXIS REACTION throat swells up - Review of Systems ROS: No change since H&P - Vital Signs and I&O's Vital Signs: Temperature 99.5 F Pulse Rate [Right Brachial] 85 Respiratory Rate 18 Blood Pressure [Left Arm] 96/58 Blood Pressure [Right Arm] 104/54 Blood Pressure 112/51 O2 Sat by Pulse Oximetry 95 Intake and Output: Intake & Output 07/10/22 07/11/22 07/12/22 07/13/22 10:59 11:59 11:59 11:59 Intake Total 1592 / 1592 2411 / 2411 Balance 1592 / 1592 2411 / 2411 - Physical Exam Oriented: Normal Eyes: Normal Ear: Normal Nose: Normal Throat: Normal Respiratory: Generalized, Diminished Cardiovascular: Edema : Normal Auscultation: Bowel Sounds: Normal Palpation: Normal Tenderness: Normal Skin: Tender (mild b/l LE tenderness, erythema improved) Musculoskeletal: Right, Left, Leg, Swelling Psychiatric: Normal Mood Description: Calm Affect: Normal Speech Pattern: Clear, Appropriate - Laboratory and Diagnostics Result Diagrams: 07/13/22 05:25 07/13/22 05:25 Labs: 07/07/22 20:55 Blood Blood Culture - Preliminary 07/07/22 20:35 Blood Blood Culture - Preliminary Laboratory WBC 3.7 X10^3/uL (3.6-10.0) 07/13/22 05:25 RBC 3.59 X10^6/uL (3.5-5.4) 07/13/22 05:25 Hgb 10.4 g/dL (12.0-16.0) L 07/13/22 05:25 Hct 31.4 % (36.0-47.0) L 07/13/22 05:25 MCV 87.6 fL (80.0-100.0) 07/13/22 05:25 MCH 29.0 pg (27.0-34.0) 07/13/22 05:25 MCHC 33.1 g/dL (33.0-35.0) 07/13/22 05:25 RDW 20.0 % (11.6-16.5) H 07/13/22 05:25 Plt Count 185 X10^3/uL (150.0-450.0) 07/13/22 05:25 Plt Count Comment Adequate (ADEQUATE) 07/12/22 05:08 MPV 11.2 fL (7.4-11.0) H 07/13/22 05:25 Neut % (Auto) 57.6 % (42.0-75.0) 07/13/22 05:25 Lymph % (Auto) 27.4 % (21.0-51.0) 07/13/22 05:25 [place] % (Auto) 11.8 % (0.0-13.0) 07/13/22 05:25 Eos % (Auto) 2.1 % (0.9-2.9) 07/13/22 05:25 Baso % (Auto) 1.1 % (0.2-1.0) H 07/13/22 05:25 Neut # (Auto) 2.1 x10^3/uL (2.2-4.8) L 07/13/22 05:25 Lymph # (Auto) 1.0 X10^3/uL (1.3-2.9) L 07/13/22 05:25 [place] # (Auto) 0.4 x10^3/uL (0.3-0.8) 07/13/22 05:25 Eos # (Auto) 0.1 x10^3/uL (0.0-0.2) 07/13/22 05:25 Baso # (Auto) 0.0 X10^3/uL (0.0-0.1) 07/13/22 05:25 Absolute Nucleated RBC 0.8 /100WBC 07/13/22 05:25 Plt Morphology Comment Normal (NORMAL) 07/12/22 05:08 RBC Morphology Abnormal (NORMAL) A 07/12/22 05:08 Anisocytosis 1+ A 07/12/22 05:08 Tear Drop Cells Present 07/12/22 05:08 Ovalocytes Present 07/11/22 04:55 [place] Cells Present 07/12/22 05:08 Schistocytes Present 07/12/22 05:08 Sodium 130 mmol/L (136-145) L 07/13/22 05:25 Corrected Sodium 132 mmol/L (136-145) L 07/13/22 05:25 Potassium 3.0 mmol/L (3.5-5.1) L 07/13/22 05:25 Chloride 91 mmol/L (98-107) L 07/13/22 05:25 Carbon Dioxide 35.0 mmol/L (21-32) H 07/13/22 05:25 BUN 24 mg/dL (7-18) H 07/13/22 05:25 Creatinine 1.77 mg/dL (0.55-1.02) H 07/13/22 05:25 Est GFR (MDRD) Af Amer 38 (>60) L 07/13/22 05:25 Est GFR (MDRD) Non-Af 32 (>60) L 07/13/22 05:25 Glucose 168 mg/dL (65-99) H 07/13/22 05:25 Calcium 8.6 mg/dL (8.5-10.1) 07/13/22 05:25 Corrected Calcium 9.6 mg/dL (8.5-10.1) 07/13/22 05:25 Magnesium 2.6 mg/dL (2.0-2.9) 07/11/22 04:55 Total Bilirubin 0.90 mg/dL (0.2-1.0) 07/13/22 05:25 AST 74 Units/L (15-37) H 07/13/22 05:25 ALT 27 Units/L (12-78) 07/13/22 05:25 Alkaline Phosphatase 148 Units/L (46-116) H 07/13/22 05:25 B-Natriuretic Peptide 7.6 pg/mL (0-79) 07/10/22 04:20 Total Protein 6.1 g/dL (6.4-8.2) L 07/13/22 05:25 Albumin 2.8 g/dL (3.4-5.0) L 07/13/22 05:25 Globulin 3.3 g/dL (2.5-4.5) 07/13/22 05:25 Albumin/Globulin Ratio 0.8 Ratio (1.1-2.1) L 07/13/22 05:25 - Plan (1) Bilateral lower leg cellulitis Status: Acute Plan: NORMAL SALINE AT 50 ML/HR, ZOSYN 3.375G IV TID, DILAUDID 1MG IV Q4H PRN, TORADOL 30MG IV Q8H PRN, ELIQUIS 5MG PO BID, THE POTASSIUM AND MAGNESIUM PROTOCOLS, AND HER HOME MEDICATIONS WERE RESUMED. DAILY LABS (2) Bilateral lower extremity edema Status: Resolved (3) Hyponatremia Status: Acute (4) Hypomagnesemia Status: Acute (5) Hypokalemia Status: Acute (6) Weakness generalized Status: Acute Plan: CONTINUE PHYSICAL THERAPY (7) Lung cancer metastatic to bone Status: Chronic
--- NOTE | 2022-07-13 17:02 | RAD ---
HISTORYSOB Relevant Clinical InformationSTUDYCHEST, 1 [id number]/2023FINDINGSTrachea is midline. There is [id number] cardiomegaly no evidence of no pneumothorax or pleural effusions. There is a possible nodule in the right base measuring 4-5 millimeters. No dominant alveolar radiopacities there is attenuation of the left base by soft tissue.IMPRESSIONLarge body habitus. No gross acute cardiopulmonary disease with limited visualization of the left base, attenuated by soft tissuePossible nodule in the right lower lobe follow up with CT chest is recommendedElectronically signed by: Delia Masters (Jul 13, 2022 17:01:07)
== END 2022-07-13 11:35 | disposition home health service (06) ==
LOC: MED/SURG
PROVIDERS: ADMIT Internal Medicine; ATTEND Internal Medicine
DX: E87.1 Hypo-osmolality and hyponatremia; R60.0 Localized edema; R26.89 Other abnormalities of gait and mobility; R06.02 Shortness of breath; E87.6 Hypokalemia; L03.115 Cellulitis of right lower limb; K21.9 Gastro-esophageal reflux disease without esophagitis; J44.1 Chronic obstructive pulmonary disease with (acute) exacerbation; C79.51 Secondary malignant neoplasm of bone; E83.42 Hypomagnesemia; C34.90 Malignant neoplasm of unspecified part of unspecified bronchus or lung; R53.1 Weakness; L03.116 Cellulitis of left lower limb

== ENCOUNTER 2022-11-13 19:34 | Observation (INO) ==
[2022-11-13 19:57] VITALS: TEMP 97.9
--- NOTE | 2022-11-13 20:39 | DR.GENAD ---
HPI Time Seen Time Seen by Provider: 11/13/22 20:39 PCP Primary Care Physician: DR RODRIGUEZ Complaint/Symptoms Chief Complaint:: PT C/O 2-3 DAYS OF PROGRESSIVELY WORSENING GENERALIZED WEAKNESS, LIGHTHEADEDNESS, AND EXERTIONAL SHORTNESS OF BREATH. PT SAYS THAT SHE HAS HAD TO WEAR HER HOME O2 CONTINUOUSLY OVER THE PAST FEW DAYS BECAUSE WITH EXERTION SHE HAS BEOME HYPOXIC. PT HAS ALSO HAD INTERMITTENT MILD DULL ACHING PAIN ACROSS LOWER ABDOMEN X 2-3 DAYS WITH DARK TARRY STOOL. COVID-19 Coronavirus risk:travel/contact w/high risk person: No Has patient experienced Coronavirus symptoms: No Source History Provided: Patient Mode of Arrival Mode of Arrival: Ambulatory Timing Onset of Chief Complaint: 11/13/22 PMH PMH Past Medical History: Yes Past Medical History: GERD, Gout and PUD Past Medical History Comment: LUNG CANCER WITH METS TO THE BRAIN,PULMONARY EMBOLISM Past Surgical History: Yes Surgical History: Hysterectomy Past Surgical History Comment: LEFT LUNG RESECTION, RIGHT SHOULDER SURGERY, TUMOR REMOVED FROM FACE Family History History of Family Medical Conditions: Yes Family Medical History: Cancer and Hypertension Social History Does patient currently use any type of tobacco product: No Have you used tobacco products in the last 12 months: No Type of Tobacco Use: None Does any household member use tobacco: No Alcohol Use: None Do you use any recreational Drugs:: No Lives With: Family Lives Where: Home Travel Risk Coronavirus risk:travel/contact w/high risk person: No Has patient experienced Coronavirus symptoms: No Infectious screening In the last 2 months have you had wt loss of >10#?: NO Have you had fever, night sweats or hemotysis?: No Have you traveled outside the country in the last 6 months?: No Isolation: Standard PE Vital Signs Vitals: Vital Signs Temperature 97.9 F Pulse Rate 86 Respiratory Rate 20 Respiratory Rate 20 Blood Pressure 122/60 O2 Sat by Pulse Oximetry 96 ROR Labs Reviewed Result Diagrams: 11/13/22 21:48 11/13/22 21:48 Laboratory: WBC 3.9 X10^3/uL (3.6-10.0) 11/13/22 21:48 RBC 3.19 X10^6/uL (3.5-5.4) L 11/13/22 21:48 Hgb 7.6 g/dL (12.0-16.0) L 11/13/22 21:48 Hct 23.3 % (36.0-47.0) L 11/13/22 21:48 MCV 73.1 fL (80.0-100.0) L 11/13/22 21:48 MCH 23.7 pg (27.0-34.0) L 11/13/22 21:48 MCHC 32.4 g/dL (33.0-35.0) L 11/13/22 21:48 RDW 19.9 % (11.6-16.5) H 11/13/22 21:48 Plt Count 214 X10^3/uL (150.0-450.0) 11/13/22 21:48 Plt Count Comment Adequate (ADEQUATE) 11/13/22 21:48 MPV 8.9 fL (7.4-11.0) 11/13/22 21:48 Neut % (Auto) 68.2 % (42.0-75.0) 11/13/22 21:48 Lymph % (Auto) 22.0 % (21.0-51.0) 11/13/22 21:48 [place] % (Auto) 6.8 % (0.0-13.0) 11/13/22 21:48 Eos % (Auto) 2.5 % (0.9-2.9) 11/13/22 21:48 Baso % (Auto) 0.5 % (0.2-1.0) 11/13/22 21:48 Neut # (Auto) 2.6 x10^3/uL (2.2-4.8) 11/13/22 21:48 Lymph # (Auto) 0.9 X10^3/uL (1.3-2.9) L 11/13/22 21:48 [place] # (Auto) 0.3 x10^3/uL (0.3-0.8) 11/13/22 21:48 Eos # (Auto) 0.1 x10^3/uL (0.0-0.2) 11/13/22 21:48 Baso # (Auto) 0.0 X10^3/uL (0.0-0.1) 11/13/22 21:48 Absolute Nucleated RBC 0.0 /100WBC 11/13/22 21:48 Plt Morphology Comment Normal (NORMAL) 11/13/22 21:48 RBC Morphology Abnormal (NORMAL) A 11/13/22 21:48 Hypochromasia Slight A 11/13/22 21:48 Anisocytosis Slight A 11/13/22 21:48 Microcytosis Slight A 11/13/22 21:48 Sodium 143 mmol/L (136-145) 11/13/22 21:48 Corrected Sodium TNP 11/13/22 21:48 Potassium 3.3 mmol/L (3.5-5.1) L 11/13/22 21:48 Chloride 103 mmol/L (98-107) 11/13/22 21:48 Carbon Dioxide 35.3 mmol/L (21-32) H 11/13/22 21:48 BUN 11 mg/dL (7-18) 11/13/22 21:48 Creatinine 0.81 mg/dL (0.55-1.02) 11/13/22 21:48 Est GFR (MDRD) Af Amer > 60 (>60) 11/13/22 21:48 Est GFR (MDRD) Non-Af > 60 (>60) 11/13/22 21:48 Glucose 99 mg/dL (65-99) 11/13/22 21:48 Calcium 8.6 mg/dL (8.5-10.1) 11/13/22 21:48 Corrected Calcium 9.2 mg/dL (8.5-10.1) 11/13/22 21:48 Total Bilirubin 0.60 mg/dL (0.2-1.0) 11/13/22 21:48 AST 14 Units/L (15-37) L 11/13/22 21:48 ALT 21 Units/L (12-78) 11/13/22 21:48 Alkaline Phosphatase 152 Units/L (46-116) H 11/13/22 21:48 Total Protein 6.3 g/dL (6.4-8.2) L 11/13/22 21:48 Albumin 3.3 g/dL (3.4-5.0) L 11/13/22 21:48 Globulin 3.0 g/dL (2.5-4.5) 11/13/22 21:48 Albumin/Globulin Ratio 1.1 Ratio (1.1-2.1) 11/13/22 21:48 Blood Type O POSITIVE 11/13/22 22:18 Blood Type O POSITIVE 11/13/22 22:18 Antibody Screen Negative 11/13/22 22:18 Crossmatch See Detail 11/13/22 22:18 Opioid Opioid Risk Tool Age (Javy box if 16-45): No History of Preadolescent Sexual Abuse: No Total: 0 Total Score Risk Category: Low Risk Copyright: Blu KOROMA predicting aberrant behaviors Discharge Plan Discharge Plan Patient Disposition: 01 HOME, SELF-CARE Condition: Stable Orders to Discharge Patient Discharge Orders: Transfer (Routine); Ordered 11/14/22 Ordered By: KATE LUGO
[2022-11-13] MEDS ORDERED: PROTONIX INJ 40 MG VIAL ONE (21:29)
[2022-11-13] MEDS: PROTONIX INJ 40 MG VIAL 80 MG in NS 100 ML IV 80 ML IV SCH (21:41)
[2022-11-13 22:13] LABS: BASOPHILS % (AUTO) 0.5 % (0.2-1.0); EOSINOPHILS # (AUTO) 0.1 x10^3/uL (0.0-0.2); EOSINOPHILS % (AUTO) 2.5 % (0.9-2.9); HEMATOCRIT 23.3 % (36.0-47.0); HEMOGLOBIN 7.6 g/dL (12.0-16.0); LYMPHOCYTES # (AUTO) 0.9 X10^3/uL (1.3-2.9); MEAN CORPUSCULAR HEMOGLOBIN 23.7 pg (27.0-34.0); MEAN CORPUSCULAR HGB CONC 32.4 g/dL (33.0-35.0); MEAN CORPUSCULAR VOLUME 73.1 fL (80.0-100.0); MEAN PLATELET VOLUME 8.9 fL (7.4-11.0); MONOCYTES # (AUTO) 0.3 x10^3/uL (0.3-0.8); MONOCYTES % (AUTO) 6.8 % (0.0-13.0); NEUTROPHILS # (AUTO) 2.6 x10^3/uL (2.2-4.8); NEUTROPHILS % (AUTO) 68.2 % (42.0-75.0); PLATELET COUNT 214 X10^3/uL (150.0-450.0); RED BLOOD COUNT 3.19 X10^6/uL (3.5-5.4); RED CELL DISTRIBUTION WIDTH 19.9 % (11.6-16.5); WHITE BLOOD COUNT 3.9 X10^3/uL (3.6-10.0)
[2022-11-13 22:21] LABS: PLATELET MORPHOLOGY COMMENT NORMAL (NORMAL)
[2022-11-13 22:22] LABS: ANISOCYTOSIS SLIGHT; HYPOCHROMASIA SLIGHT; MICROCYTOSIS SLIGHT
[2022-11-13 22:29] LABS: ALANINE AMINOTRANSFERASE 21 Units/L (12-78); ALBUMIN 3.3 g/dL (3.4-5.0); ALKALINE PHOSPHATASE 152 Units/L (46-116); ASPARTATE AMINO TRANSFERASE 14 Units/L (15-37); BLOOD UREA NITROGEN 11 mg/dL (7-18); CALCIUM 8.6 mg/dL (8.5-10.1); CARBON DIOXIDE 35.3 mmol/L (21-32); CHLORIDE 103 mmol/L (98-107); COR CA(FOR HYPOALB) 9.2 mg/dL (8.5-10.1); CREATININE 0.81 mg/dL (0.55-1.02); GLUCOSE 99 mg/dL (65-99); POTASSIUM 3.3 mmol/L (3.5-5.1); SODIUM 143 mmol/L (136-145); TOTAL PROTEIN 6.3 g/dL (6.4-8.2); eGFR NON BLACK RACES > 60 (>60)
[2022-11-14 01:04] VITALS: BMI 39.6
[2022-11-14] MEDS ORDERED: NS 250 ML IV 250 ML IV ONE (01:14)
[2022-11-14] MEDS ORDERED: REQUIP PO ONE (02:39)
[2022-11-14] MEDS ORDERED: NEURONTIN CAP 300 MG ONE (02:39)
[2022-11-14] MEDS: NEURONTIN CAP 300 MG PO SCH ×2 (02:42→05:40)
[2022-11-14] MEDS: REQUIP PO SCH ×2 (02:42→08:24)
[2022-11-14] MEDS: PROTONIX INJ 40 MG VIAL 80 MG in NS 100 ML IV 80 ML IV SCH (05:38)
[2022-11-14 08:35] LABS: BASOPHILS % (AUTO) 0.3 % (0.2-1.0); EOSINOPHILS # (AUTO) 0.1 x10^3/uL (0.0-0.2); EOSINOPHILS % (AUTO) 2.2 % (0.9-2.9); HEMATOCRIT 25.6 % (36.0-47.0); HEMOGLOBIN 8.3 g/dL (12.0-16.0); LYMPHOCYTES # (AUTO) 0.9 X10^3/uL (1.3-2.9); LYMPHOCYTES % (AUTO) 23.4 % (21.0-51.0); MEAN CORPUSCULAR HEMOGLOBIN 24.2 pg (27.0-34.0); MEAN CORPUSCULAR HGB CONC 32.4 g/dL (33.0-35.0); MEAN CORPUSCULAR VOLUME 74.7 fL (80.0-100.0); MEAN PLATELET VOLUME 8.9 fL (7.4-11.0); MONOCYTES # (AUTO) 0.3 x10^3/uL (0.3-0.8); MONOCYTES % (AUTO) 8.1 % (0.0-13.0); NEUTROPHILS # (AUTO) 2.5 x10^3/uL (2.2-4.8); PLATELET COUNT 196 X10^3/uL (150.0-450.0); RED BLOOD COUNT 3.43 X10^6/uL (3.5-5.4); WHITE BLOOD COUNT 3.7 X10^3/uL (3.6-10.0)
[2022-11-14 08:44] LABS: ALANINE AMINOTRANSFERASE 18 Units/L (12-78); ALBUMIN 3.1 g/dL (3.4-5.0); ALKALINE PHOSPHATASE 148 Units/L (46-116); ASPARTATE AMINO TRANSFERASE 17 Units/L (15-37); BLOOD UREA NITROGEN 9 mg/dL (7-18); CALCIUM 8.4 mg/dL (8.5-10.1); CARBON DIOXIDE 33.7 mmol/L (21-32); CHLORIDE 104 mmol/L (98-107); COR CA(FOR HYPOALB) 9.1 mg/dL (8.5-10.1); GLUCOSE 92 mg/dL (65-99); POTASSIUM 3.6 mmol/L (3.5-5.1); SODIUM 143 mmol/L (136-145); TOTAL PROTEIN 5.7 g/dL (6.4-8.2); eGFR NON BLACK RACES > 60 (>60)
[2022-11-14 08:47] LABS: PLATELET MORPHOLOGY COMMENT NORMAL (NORMAL)
[2022-11-14 08:49] LABS: ANISOCYTOSIS 1+; HYPOCHROMASIA SLIGHT; MICROCYTOSIS SLIGHT
[2022-11-14] MEDS ORDERED: CONSULT PHARMACY - POTASSIUM & MAGNESIUM XX SCH (09:00)
[2022-11-14] MEDS ORDERED: MAG-OX TAB PO SCH (10:00)
[2022-11-14] MEDS ORDERED: K-DUR TAB 20 MEQ PO ONE (10:00)
[2022-11-14 11:48] VITALS: BP 153/84; PULSE 77; RESP 24; O2SAT 99
--- NOTE | 2022-11-14 12:09 | DR.SSS ---
SHORT STAY SUMMARY Admission Date Date of Admission: 11/13/22 Discharge Date Discharge Date: 11/14/22 Admission Diagnoses Admission Diagnoses: Symptomatic anemia Discharge Diagnoses Discharge Diagnoses: Symptomatic anemia Chief Complaint Chief Complaint: Dizziness Lightheaded History of Present Illness History of Present Illness: Pt is a 57 year old female with past medical history of cancer and anemia presenting with dizziness and lightheadedness. On admission she was found to be anemic. Labs/imaging: Wbc 3.7, Hgb 7.6, Plt 196, Na 143, K 3.6, Creatinine 0.80, Glucose 92. Past Medical History Past Medical History: GERD, Gout and PUD Past Surgical History Surgical History: Hysterectomy and Ortho Surgery Allergies Allergies Allergy/AdvReac Type Severity Reaction Status Date / Time albuterol Allergy ANAPHALEXIS Verified 07/07/22 18:24 REACTION Medications Home Medications: albuterol Allergy (Verified 07/07/22 18:24) ANAPHALEXIS REACTION CONTINUE taking the following medications allopurinol 100 mg tablet 1 tab PO QDAY 11/14/22 [History] gabapentin 300 mg capsule 1 cap PO TID 11/14/22 [History] hydrocodone 10 mg-acetaminophen 325 mg tablet 1 tab PO QID PRN 11/14/22 [History] Family History Family Medical History: Cancer and Hypertension Social History Does patient currently use any type of tobacco product: No Have you used tobacco products in the last 12 months: No Type of Tobacco Use: None Does any household member use tobacco: No Alcohol Use: None Drug Use: None Review of Systems Constitutional: Weakness and Other (dizziness) Eyes: No Symptoms Reported ENT: No Symptoms Reported Respiratory: No Symptoms Reported Cardiovascular: No Symptoms Reported Gastrointestinal: No Symptoms Reported Genitourinary: No Symptoms Reported Musculoskeletal: No Symptoms Reported Skin: No Symptoms Reported Neurological: No Symptoms Reported Physical Exam Vital Signs: Last Vital Signs Temp 97.9 F 11/13/22 19:53 Pulse 77 11/14/22 11:45 Resp 24 11/14/22 11:45 BP 153/84 11/14/22 11:02 Pulse Ox 99 11/14/22 11:45 O2 Del Method Nasal Cannula 11/14/22 09:06 O2 Flow Rate 2 11/14/22 09:06 FiO2 28 11/14/22 09:06 Oriented: Normal Eyes: Normal Nose: Normal Throat: Normal Respiratory: Clear Throughout Cardiovascular: Normal : Normal Auscultation: Bowel Sounds: Normal Palpation: Normal Tenderness: Normal Skin: Normal Musculoskeletal: Normal Mood Description: Calm Speech Pattern: Clear Labs Labs: Laboratory Last Values WBC 3.7 X10^3/uL (3.6-10.0) 11/14/22 08:20 RBC 3.43 X10^6/uL (3.5-5.4) L 11/14/22 08:20 Hgb 8.3 g/dL (12.0-16.0) L 11/14/22 08:20 Hct 25.6 % (36.0-47.0) L 11/14/22 08:20 MCV 74.7 fL (80.0-100.0) L 11/14/22 08:20 MCH 24.2 pg (27.0-34.0) L 11/14/22 08:20 MCHC 32.4 g/dL (33.0-35.0) L 11/14/22 08:20 RDW 21.0 % (11.6-16.5) H 11/14/22 08:20 Plt Count 196 X10^3/uL (150.0-450.0) 11/14/22 08:20 Plt Count Comment Adequate (ADEQUATE) 11/14/22 08:20 MPV 8.9 fL (7.4-11.0) 11/14/22 08:20 Neut % (Auto) 66.0 % (42.0-75.0) 11/14/22 08:20 Lymph % (Auto) 23.4 % (21.0-51.0) 11/14/22 08:20 [place] % (Auto) 8.1 % (0.0-13.0) 11/14/22 08:20 Eos % (Auto) 2.2 % (0.9-2.9) 11/14/22 08:20 Baso % (Auto) 0.3 % (0.2-1.0) 11/14/22 08:20 Neut # (Auto) 2.5 x10^3/uL (2.2-4.8) 11/14/22 08:20 Lymph # (Auto) 0.9 X10^3/uL (1.3-2.9) L 11/14/22 08:20 [place] # (Auto) 0.3 x10^3/uL (0.3-0.8) 11/14/22 08:20 Eos # (Auto) 0.1 x10^3/uL (0.0-0.2) 11/14/22 08:20 Baso # (Auto) 0.0 X10^3/uL (0.0-0.1) 11/14/22 08:20 Absolute Nucleated RBC 0.1 /100WBC 11/14/22 08:20 Plt Morphology Comment Normal (NORMAL) 11/14/22 08:20 RBC Morphology Abnormal (NORMAL) A 11/14/22 08:20 Hypochromasia Slight A 11/14/22 08:20 Anisocytosis 1+ A 11/14/22 08:20 Microcytosis Slight A 11/14/22 08:20 PT 14.0 SECONDS (11.8-14.3) 11/14/22 08:20 INR Target Range - 11/14/22 08:20 INR 1.10 (0.8-1.3) 11/14/22 08:20 APTT 32.2 SECONDS (22.9-36.5) 11/14/22 08:20 PTT Comment - 11/14/22 08:20 Sodium 143 mmol/L (136-145) 11/14/22 08:20 Corrected Sodium TNP 11/14/22 08:20 Potassium 3.6 mmol/L (3.5-5.1) 11/14/22 08:20 Chloride 104 mmol/L (98-107) 11/14/22 08:20 Carbon Dioxide 33.7 mmol/L (21-32) H 11/14/22 08:20 BUN 9 mg/dL (7-18) 11/14/22 08:20 Creatinine 0.80 mg/dL (0.55-1.02) 11/14/22 08:20 Est GFR (MDRD) Af Amer > 60 (>60) 11/14/22 08:20 Est GFR (MDRD) Non-Af > 60 (>60) 11/14/22 08:20 Glucose 92 mg/dL (65-99) 11/14/22 08:20 Calcium 8.4 mg/dL (8.5-10.1) L 11/14/22 08:20 Corrected Calcium 9.1 mg/dL (8.5-10.1) 11/14/22 08:20 Magnesium 1.8 mg/dL (2.0-2.9) L 11/14/22 08:20 Total Bilirubin 0.60 mg/dL (0.2-1.0) 11/14/22 08:20 AST 17 Units/L (15-37) 11/14/22 08:20 ALT 18 Units/L (12-78) 11/14/22 08:20 Alkaline Phosphatase 148 Units/L (46-116) H 11/14/22 08:20 Total Protein 5.7 g/dL (6.4-8.2) L 11/14/22 08:20 Albumin 3.1 g/dL (3.4-5.0) L 11/14/22 08:20 Globulin 2.6 g/dL (2.5-4.5) 11/14/22 08:20 Albumin/Globulin Ratio 1.2 Ratio (1.1-2.1) 11/14/22 08:20 Blood Type O POSITIVE 11/13/22 22:18 Blood Type O POSITIVE 11/13/22 22:18 Antibody Screen Negative 11/13/22 22:18 Crossmatch See Detail 11/13/22 22:18 Assessment/Plan (1) Symptomatic anemia: Hospital Course Hospital Course: Pt was admitted for symptomatic anemia. She had type and screen and was transfused 1 unit packed red blood cells. Hemoglobin responded appropriately and is stabilized at 8.3. Pt reports resolution of symptoms. She is scheduled for chemotherapy tomorrow with Dr Dee. Pt discharged in stable condition. Instructed to follow up with pcp in 1 week. Discharge Medications Discharge Medications: Home Medication List allopurinol 100 mg tablet 1 tab PO QDAY 11/14/22 [History] gabapentin 300 mg capsule 1 cap PO TID 11/14/22 [History] hydrocodone 10 mg-acetaminophen 325 mg tablet 1 tab PO QID PRN 11/14/22 [History] Prescriptions: Discharge Disposition Discharge Disposition: Home Discharge Plan Discharge Plan Patient Disposition: 01 HOME, SELF-CARE Condition: Stable Health Concerns: Post Hospitalization: new medications and changes needed to prevent readmission or further decline. Pt educated and given instructions on all concerns. Plan of Treatment: Continue with present treatment and follow up plan. Pt is to keep follow up appointment as instructed and take medications as ordered. Prescriptions: New gabapentin 300 mg Capsule 300 mg PO TID 0RF ropinirole 1 mg Tablet 3 mg PO BID 0RF Continued tramadol 50 mg Tablet 50 mg PO BID PRN (Reason: Pain) Rx Instructions: TAKE 1 TABLET BY MOUTH TWICE DAILY trazodone 100 mg tablet 150 mg PO HS Alecensa 150 mg Capsule 150 mg PO BID pantoprazole 40 mg tablet,delayed release (DR/EC) 40 mg PO BID ropinirole 2 mg Tablet 3 mg PO BID Eliquis 5 mg Tablet 5 mg PO BID Qty: 60 3RF Rx Instructions: TAKE ONE TABLET TWICE A DAY allopurinol 100 mg tablet 1 tab PO QDAY hydrocodone-acetaminophen 10-325 mg tablet 1 tab PO QID PRN gabapentin 300 mg capsule 1 cap PO TID Orders to Discharge Patient Discharge Orders: Discharge (Routine); Ordered 11/14/22 Ordered By: Luis Armando Toney Follow ups/Referrals Follow ups/Referrals: Russell Coronado [Primary Care Provider] - 3 days Instructions Stand Alone Forms: Excuse From Work or School, Post Hospital Follow Up Care
== END 2022-11-14 11:58 | disposition home or self-care (01) ==
LOC: ICU 19:44 → ER 19:44 → ICU 11-14 00:31
PROVIDERS: ADMIT Family Medicine; ATTEND Internal Medicine
DX: R42 Dizziness and giddiness; C34.90 Malignant neoplasm of unspecified part of unspecified bronchus or lung; R06.02 Shortness of breath; Z99.81 Dependence on supplemental oxygen; E87.6 Hypokalemia; R10.84 Generalized abdominal pain; D64.89 Other specified anemias; K21.9 Gastro-esophageal reflux disease without esophagitis

== ENCOUNTER 2022-11-25 15:52 | Inpatient (IN) ==
[2022-11-25 16:04] VITALS: BMI 37.6
--- NOTE | 2022-11-25 16:31 | DR.DIZZY ---
HPI Time seen Time Seen by Provider: 11/25/22 16:29 PCP Primary Care Physician: JENNIFER Complaint Chief Complaint Doctor Comments: 57 y/o female brought in via EMS, having increasing weakness over the past few days. Decreased appetite, poor po intake. Feeling lightheaded, dizzy with moving. + h/o lung CA w/ brain mets, finished last chemo 5 days ago. Denies fever. Having nausea, some vomiting. + shortness of breath without her chronic O2. Feeling weak in general, with nausea, spitting up some phlegm. Seen at another facility 3 days ago, had a w/u wich included CT of the brain, CTA of the chest. Brain lesion reportedly small than prior to chemo. Having a posterior headache. Chief Complaint:: pt brought in [facility] with c/o of feeling tired and drained and nauseous along with a little vomiting and a raspey voice. Pt states she was seen [facility] for the same problem and they couldnt find anything wrong pt stated. COVID-19 Coronavirus risk:travel/contact w/high risk person: No Has patient experienced Coronavirus symptoms: No Nurses Notes Reviewed Nurses Notes Review: Yes Source History Provided: Patient Mode of Arrival Mode of Arrival: Stretcher Timing Onset of Chief Complaint: 11/18/22 Context Stroke Symptoms: None PMH PMH Past Medical History: Yes Past Medical History: GERD, Gout and PUD Past Medical History Comment: lung ca brain ca Past Surgical History: Yes Surgical History: Hysterectomy and Ortho Surgery Family History History of Family Medical Conditions: Yes Family Medical History: Cancer and Hypertension Social History Does patient currently use any type of tobacco product: No Have you used tobacco products in the last 12 months: No Type of Tobacco Use: None Does any household member use tobacco: No Alcohol Use: None Do you use any recreational Drugs:: No Lives With: Alone Lives Where: Home Travel Risk Coronavirus risk:travel/contact w/high risk person: No Has patient experienced Coronavirus symptoms: No Infectious screening In the last 2 months have you had wt loss of >10#?: NO Have you had fever, night sweats or hemotysis?: No Have you traveled outside the country in the last 6 months?: No Isolation: Standard ROS Review of Systems Constitutional: Malaise and Weakness Eyes: No Symptoms Reported ENTM: No Symptoms Reported Respiratoy: Short of Breath Cardiovascular: No Symptoms Reported Gastrointestinal/Abdominal: Nausea and Vomiting Genitourinary: No Symptoms Reported Neurological: Headache and Weakness Musculoskeletal: No Symptoms Reported Integumentary: No Symptoms Reported Hematologic/Lymphatic: No Symptoms Reported All Other Systems: Reviewed and Negative PE Vital Signs Vitals: Vital Signs Temperature 97.9 F Pulse Rate 71 Pulse Rate 71 Pulse Rate 75 Pulse Rate 74 Respiratory Rate 20 Respiratory Rate 20 Respiratory Rate 18 Blood Pressure 151/65 Blood Pressure 138/65 Blood Pressure 143/66 O2 Sat by Pulse Oximetry 100 O2 Sat by Pulse Oximetry 99 O2 Sat by Pulse Oximetry 99 O2 Sat by Pulse Oximetry 99 O2 Sat by Pulse Oximetry 99 General General Appearance: Alert and In No Apparent Distress Eyes Eye exam: PERRL and EOMI ENT ENT Exam: Normal Oropharynx and Mucous Membranes Moist Neck Neck Exam: Normal Inspection and Full ROM; negative Tenderness Respiratory Respiratory Exam: Normal Lung Sounds Bilat; negative Accessory Muscle Use or Respiratory Distress Cardiovascular Cardiovascular Exam: Regular Rate, Normal Rhythm and Normal Heart Sounds Abdominal Exam Abdominal Exam: Normal Bowel Sounds and Soft; negative Tenderness Extremeties Extremities Exam: Normal Inspection and Full ROM; negative Edema Neurologic Neurological Exam: Alert, Oriented X3, CN II-XII Intact and Other (RLE with some weakness, able to maintain off bed, but shaky. R finger to nose luci, but able to hit do correctly. ) Skin Skin Exam: Warm and Dry COURSE Treatment Treatment: 57 y/o female, recently completed chemo for brain mets. Having persistent N/V, weakness. Seen at another facility recently, had CT which showed improvement in size of tumor. Given IV fluids, IV nausea, pain med. Will admit for further nausea, pain control. Admitted to Dr Coronado. ROR Labs Reviewed Laboratory Results Reviewed?: Yes 11/27/22 08:40 11/27/22 08:40 Laboratory: WBC 4.9 X10^3/uL (3.6-10.0) 11/25/22 17:19 RBC 4.47 X10^6/uL (3.5-5.4) 11/25/22 17:19 Hgb 11.1 g/dL (12.0-16.0) L 11/25/22 17:19 Hct 34.3 % (36.0-47.0) L 11/25/22 17:19 MCV 76.7 fL (80.0-100.0) L 11/25/22 17:19 MCH 24.7 pg (27.0-34.0) L 11/25/22 17:19 MCHC 32.2 g/dL (33.0-35.0) L 11/25/22 17:19 RDW 24.1 % (11.6-16.5) H 11/25/22 17:19 Plt Count 188 X10^3/uL (150.0-450.0) 11/25/22 17:19 Plt Count Comment Adequate (ADEQUATE) 11/25/22 17:19 MPV 9.9 fL (7.4-11.0) 11/25/22 17:19 Neut % (Auto) 77.2 % (42.0-75.0) H 11/25/22 17:19 Lymph % (Auto) 14.2 % (21.0-51.0) L 11/25/22 17:19 [place] % (Auto) 6.8 % (0.0-13.0) 11/25/22 17:19 Eos % (Auto) 1.1 % (0.9-2.9) 11/25/22 17:19 Baso % (Auto) 0.7 % (0.2-1.0) 11/25/22 17:19 Neut # (Auto) 3.8 x10^3/uL (2.2-4.8) 11/25/22 17:19 Lymph # (Auto) 0.7 X10^3/uL (1.3-2.9) L 11/25/22 17:19 [place] # (Auto) 0.3 x10^3/uL (0.3-0.8) 11/25/22 17:19 Eos # (Auto) 0.1 x10^3/uL (0.0-0.2) 11/25/22 17:19 Baso # (Auto) 0.0 X10^3/uL (0.0-0.1) 11/25/22 17:19 Absolute Nucleated RBC 0.3 /100WBC 11/25/22 17:19 Plt Morphology Comment Normal (NORMAL) 11/25/22 17:19 RBC Morphology Abnormal (NORMAL) A 11/25/22 17:19 Hypochromasia Slight A 11/25/22 17:19 Anisocytosis 3+ A 11/25/22 17:19 Microcytosis Slight A 11/25/22 17:19 [place] Cells Present 11/25/22 17:19 Sodium 143 mmol/L (136-145) 11/25/22 17:19 Corrected Sodium TNP 11/25/22 17:19 Potassium 3.6 mmol/L (3.5-5.1) 11/25/22 17:19 Chloride 102 mmol/L (98-107) 11/25/22 17:19 Carbon Dioxide 34.0 mmol/L (21-32) H 11/25/22 17:19 BUN 10 mg/dL (7-18) 11/25/22 17:19 Creatinine 0.86 mg/dL (0.55-1.02) 11/25/22 17:19 Est GFR (MDRD) Af Amer > 60 (>60) 11/25/22 17:19 Est GFR (MDRD) Non-Af > 60 (>60) 11/25/22 17:19 Glucose 98 mg/dL (65-99) 11/25/22 17:19 Calcium 8.9 mg/dL (8.5-10.1) 11/25/22 17:19 Corrected Calcium TNP 11/25/22 17:19 Total Bilirubin 0.70 mg/dL (0.2-1.0) 11/25/22 17:19 AST 18 Units/L (15-37) 11/25/22 17:19 ALT 17 Units/L (12-78) 11/25/22 17:19 Alkaline Phosphatase 159 Units/L (46-116) H 11/25/22 17:19 Total Protein 6.7 g/dL (6.4-8.2) 11/25/22 17:19 Albumin 3.7 g/dL (3.4-5.0) 11/25/22 17:19 Globulin 3.0 g/dL (2.5-4.5) 11/25/22 17:19 Albumin/Globulin Ratio 1.2 Ratio (1.1-2.1) 11/25/22 17:19 Lipase 60 Units/L (73-393) L 11/25/22 17:19 Specimen Type Clean catch urine 11/25/22 16:45 Urine Color Dark yellow (YELLOW) 11/25/22 16:45 Urine Appearance Clear (CLEAR) 11/25/22 16:45 Urine pH 6.5 (5.0 - 8.0) 11/25/22 16:45 Ur Specific [place] 1.020 (1.000-1.030) 11/25/22 16:45 Urine Protein 1+ (NEGATIVE) 11/25/22 16:45 Urine Glucose (UA) Negative (NEGATIVE) 11/25/22 16:45 Urine Ketones Negative (NEGATIVE) 11/25/22 16:45 Urine Blood Negative (NEGATIVE) 11/25/22 16:45 Urine Nitrite Negative (NEGATIVE) 11/25/22 16:45 Urine Bilirubin Negative (NEGATIVE) 11/25/22 16:45 Urine Urobilinogen 1+ (NORMAL) 11/25/22 16:45 Ur Leukocyte Esterase Negative (NEGATIVE) 11/25/22 16:45 Urine RBC 0-2 /HPF (0-3) 11/25/22 16:45 Urine WBC 0-2 /HPF (0-5) 11/25/22 16:45 Ur Squamous Epith Cells Numerous /HPF (NEGATIVE) 11/25/22 16:45 Urine Bacteria 2+ /HPF (NEGATIVE) 11/25/22 16:45 Urine Mucus Many /HPF (NEGATIVE) 11/25/22 16:45 Ur Culture Indicated? No/not indicated 11/25/22 16:45 Labs overall acceptable. Opioid Opioid Risk Tool Age (Javy box if 16-45): No History of Preadolescent Sexual Abuse: No Total: 0 Total Score Risk Category: Low Risk Copyright: Blu KOROMA predicting aberrant behaviors Discharge Plan Diagnosis Discharge Problem: Generalized weakness, H/O malignant neoplasm of brain Nausea & vomiting Qualifiers: Vomiting type: unspecified Qualified Code(s): R11.2 - Nausea with vomiting, unspecified Discharge Plan Patient Disposition: ADMITTED INPATIENT Condition: Stable
[2022-11-25 16:58] LABS: BILIRUBIN,URINE NEGATIVE (NEGATIVE); BLOOD/HEMOGLOBIN,URINE NEGATIVE (NEGATIVE); GLUCOSE, URINE NEGATIVE (NEGATIVE); KETONES,URINE NEGATIVE (NEGATIVE); LEUKOCYTE ESTERASE ,URINE NEGATIVE (NEGATIVE); NITRITES,URINE NEGATIVE (NEGATIVE); PH,URINE 6.5 (5.0 - 8.0); PROTEIN,URINE 1+ (NEGATIVE); UROBILINOGEN,URINE 1+ (NORMAL)
[2022-11-25 17:04] LABS: APPEARANCE,URINE CLEAR (CLEAR); COLOR,URINE DARK YELLOW (YELLOW)
[2022-11-25] MEDS ORDERED: NS 1,000 ML IV 1,000 ML IV ONE (17:08)
[2022-11-25] MEDS ORDERED: ZOFRAN INJ 4 MG VIAL IVP ONE ×2 (17:08→19:00)
[2022-11-25] MEDS ORDERED: MORPHINE SULFATE INJ 4 MG IVP ONE (17:08)
[2022-11-25] MEDS ORDERED: ZOFRAN INJ 4 MG VIAL ONE ×2 (17:13→19:01)
[2022-11-25] MEDS ORDERED: MORPHINE SULFATE INJ 4 MG ONE (17:13)
[2022-11-25] MEDS ORDERED: NS 1,000 ML IV 1,000 ML ONE (17:13)
[2022-11-25 17:15] LABS: BACTERIA,URINE 2+ /HPF (NEGATIVE); RBC,URINE 0-2 /HPF (0-3); SQUAMOUS EPITHELIAL CELL,UR NUMEROUS /HPF (NEGATIVE)
[2022-11-25 17:32] LABS: EOSINOPHILS # (AUTO) 0.1 x10^3/uL (0.0-0.2); HEMOGLOBIN 11.1 g/dL (12.0-16.0); LYMPHOCYTES # (AUTO) 0.7 X10^3/uL (1.3-2.9); MEAN CORPUSCULAR HEMOGLOBIN 24.7 pg (27.0-34.0); NEUTROPHILS # (AUTO) 3.8 x10^3/uL (2.2-4.8)
[2022-11-25 17:39] LABS: BASOPHILS % (AUTO) 0.7 % (0.2-1.0); EOSINOPHILS % (AUTO) 1.1 % (0.9-2.9); HEMATOCRIT 34.3 % (36.0-47.0); LYMPHOCYTES % (AUTO) 14.2 % (21.0-51.0); MEAN CORPUSCULAR HGB CONC 32.2 g/dL (33.0-35.0); MEAN CORPUSCULAR VOLUME 76.7 fL (80.0-100.0); MEAN PLATELET VOLUME 9.9 fL (7.4-11.0); MONOCYTES # (AUTO) 0.3 x10^3/uL (0.3-0.8); MONOCYTES % (AUTO) 6.8 % (0.0-13.0); NEUTROPHILS % (AUTO) 77.2 % (42.0-75.0); PLATELET COUNT 188 X10^3/uL (150.0-450.0); RED BLOOD COUNT 4.47 X10^6/uL (3.5-5.4); RED CELL DISTRIBUTION WIDTH 24.1 % (11.6-16.5); WHITE BLOOD COUNT 4.9 X10^3/uL (3.6-10.0)
[2022-11-25 17:44] LABS: ALANINE AMINOTRANSFERASE 17 Units/L (12-78); ALBUMIN 3.7 g/dL (3.4-5.0); ALKALINE PHOSPHATASE 159 Units/L (46-116); ASPARTATE AMINO TRANSFERASE 18 Units/L (15-37); BLOOD UREA NITROGEN 10 mg/dL (7-18); CALCIUM 8.9 mg/dL (8.5-10.1); CHLORIDE 102 mmol/L (98-107); CREATININE 0.86 mg/dL (0.55-1.02); GLUCOSE 98 mg/dL (65-99); LIPASE 60 Units/L (73-393); POTASSIUM 3.6 mmol/L (3.5-5.1); SODIUM 143 mmol/L (136-145); TOTAL PROTEIN 6.7 g/dL (6.4-8.2); eGFR NON BLACK RACES > 60 (>60)
[2022-11-25 17:50] LABS: ANISOCYTOSIS 3+; HYPOCHROMASIA SLIGHT; MICROCYTOSIS SLIGHT; PLATELET MORPHOLOGY COMMENT NORMAL (NORMAL)
[2022-11-25 17:51] LABS: BURR CELLS PRESENT
[2022-11-25] MEDS ORDERED: DILAUDID INJ IVP ONE (18:49)
[2022-11-25] MEDS ORDERED: DILAUDID INJ ONE (18:54)
[2022-11-25] MEDS ORDERED: DILAUDID INJ IVP PRN (20:27)
[2022-11-25] MEDS ORDERED: ZOFRAN INJ 4 MG VIAL IVP PRN (20:27)
[2022-11-25] MEDS ORDERED: CONSULT PHARMACY - POTASSIUM & MAGNESIUM XX SCH (21:00)
--- NOTE | 2022-11-25 21:07 | RAD ---
HISTORYc/o of feeling tired and drained and nauseous along with a little vomiting and a raspey voice. Pt states she was seen [facility] for the same problem and they couldnt find anything wrongSTUDYCHEST, 1 [id number]/2023FINDINGSI believe there is diffuse venous congestion, progressed since prior study. No pleural effusion or pneumothorax.Cardiomegaly is present.Bones are unremarkable.IMPRESSION1. Cardiomegaly with new venous congestionElectronically signed by: Hemal Clarke (Nov 25, 2022 21:06:25)
[2022-11-25] MEDS: REQUIP PO SCH (21:26)
[2022-11-25] MEDS: ELIQUIS PO SCH (21:26)
[2022-11-25] MEDS: DESYREL PO SCH (21:26)
[2022-11-25] MEDS: NEURONTIN CAP 300 MG PO SCH (21:27)
[2022-11-25] MEDS: NORCO 10/325 TAB PO PRN (21:27)
[2022-11-25] MEDS ORDERED: K-DUR TAB 20 MEQ PO SCH (22:00)
[2022-11-26] MEDS: NEURONTIN CAP 300 MG PO SCH ×3 (05:17→21:03)
[2022-11-26] MEDS: NORCO 10/325 TAB PO PRN ×2 (05:18→18:12)
[2022-11-26 06:30] LABS: BASOPHILS % (AUTO) 0.5 % (0.2-1.0); EOSINOPHILS # (AUTO) 0.1 x10^3/uL (0.0-0.2); EOSINOPHILS % (AUTO) 1.9 % (0.9-2.9); HEMATOCRIT 32.9 % (36.0-47.0); HEMOGLOBIN 10.4 g/dL (12.0-16.0); LYMPHOCYTES # (AUTO) 0.8 X10^3/uL (1.3-2.9); LYMPHOCYTES % (AUTO) 17.9 % (21.0-51.0); MEAN CORPUSCULAR HEMOGLOBIN 24.8 pg (27.0-34.0); MEAN CORPUSCULAR HGB CONC 31.6 g/dL (33.0-35.0); MEAN CORPUSCULAR VOLUME 78.3 fL (80.0-100.0); MEAN PLATELET VOLUME 10.1 fL (7.4-11.0); MONOCYTES # (AUTO) 0.4 x10^3/uL (0.3-0.8); MONOCYTES % (AUTO) 8.4 % (0.0-13.0); NEUTROPHILS # (AUTO) 3.2 x10^3/uL (2.2-4.8); NEUTROPHILS % (AUTO) 71.3 % (42.0-75.0); PLATELET COUNT 178 X10^3/uL (150.0-450.0); RED CELL DISTRIBUTION WIDTH 23.4 % (11.6-16.5); WHITE BLOOD COUNT 4.5 X10^3/uL (3.6-10.0)
[2022-11-26 06:32] LABS: ALANINE AMINOTRANSFERASE 16 Units/L (12-78); ALBUMIN 3.4 g/dL (3.4-5.0); ALKALINE PHOSPHATASE 150 Units/L (46-116); ASPARTATE AMINO TRANSFERASE 16 Units/L (15-37); BLOOD UREA NITROGEN 9 mg/dL (7-18); CALCIUM 8.8 mg/dL (8.5-10.1); CARBON DIOXIDE 34.7 mmol/L (21-32); CHLORIDE 104 mmol/L (98-107); CREATININE 0.83 mg/dL (0.55-1.02); GLUCOSE 99 mg/dL (65-99); POTASSIUM 3.7 mmol/L (3.5-5.1); SODIUM 143 mmol/L (136-145); TOTAL PROTEIN 6.4 g/dL (6.4-8.2); eGFR NON BLACK RACES > 60 (>60)
--- NOTE | 2022-11-26 07:25 | RAD ---
HISTORYShortness of breathSTUDYChest AP [id number]/27/2023FINDINGSThe heart is enlarged. No definite congestive heart failure is noted. No definite acute alveolar infiltrates or pleural effusions are identified. Bony thorax is unremarkable.IMPRESSIONCardiomegaly without congestive heart failureNo acute infiltratesElectronically signed by: RADHA HERNANDEZ (Nov 26, 2022 07:23:05)
[2022-11-26 08:04] LABS: MICROCYTOSIS SLIGHT; PLATELET MORPHOLOGY COMMENT NORMAL (NORMAL)
[2022-11-26 08:05] LABS: BURR CELLS SLIGHT; OVALOCYTES SLIGHT
[2022-11-26] MEDS: ELIQUIS PO SCH ×2 (08:29→21:03)
[2022-11-26] MEDS: ZYLOPRIM PO SCH (08:29)
[2022-11-26] MEDS ORDERED: PROTONIX INJ 40 MG VIAL IVP SCH (09:00)
[2022-11-26] MEDS ORDERED: CONSULT PHARMACY - POTASSIUM & MAGNESIUM XX SCH (10:00)
[2022-11-26] MEDS: K-DUR TAB 20 MEQ PO SCH (11:00)
[2022-11-26] MEDS: PEPCID 20 MG VIAL 20 MG in NS 50 ML IV 50 ML IV SCH ×2 (11:00→21:04)
[2022-11-26] MEDS: CORTISPORIN OTIC SUSP EACH EAR SCH ×3 (11:00→21:05)
[2022-11-26] MEDS: NS 1,000 ML IV 1,000 ML IV SCH (11:01)
[2022-11-26] MEDS ORDERED: MULTIHANCE INJ VIAL ONE (11:36)
--- NOTE | 2022-11-26 14:22 | MRI ---
HISTORYweakness, dizziness, pt has a hx of metastatic CASTUDYBRAIN W W/O [id number]/13/2023 and MRI dated 03/29/2022TECHNIQUEMultiplanar multi sequences images through the brain were performed with and without contrastFINDINGSThe ventricles are symmetric and normal in size.There is new vasogenic edema in the left cerebellum and in the right middle cerebellar peduncle,after the administration of contrast there is a ring enhancing lesion in the left cerebellum measuring approximately 1.2 X 1.1 centimeter,the coronal and sagittal images demonstrate more central enhancement of these lesion,there is susceptibility artifact from previous calcifications there is no significant restricted diffusion in the lesion.The lesion in the right middle cerebellar peduncle demonstrate some restricted diffusion and there is more solid enhancement with some central heterogeneous area necrosis. The lesion measures in AP dimension 2.3 centimeters and in transverse dimension 2.2 centimeters and in craniocaudal dimension approximately 1.9 centimeters. No other focal lesions are seen. There is very mild mass effect in the 4th ventricleThere is no orbital masses. No sellar masses. The cervicocranial junction is unremarkable. No evidence of territorial infarct. The main arterial and venous flow voids are present. No abnormal signal in the mastoid cells and included paranasal sinuses. No orbital masses. The edema in the lesion in the middle cerebellar peduncle is extending to the right aspect of the bpons. The previously seen calcification appears to be projecting more superior to the area of enhancementIMPRESSIONNew vasogenic edema involving the right middle cerebellar peduncle with solid heterogeneous enhancing lesion in the area with minimal restricted diffusion, it could represent worsening of disease versus radiation necrosis, the pattern of enhancement is heterogeneous and predominantly solid, favoring worsening of diseaseIncrease in size left cerebellar lesion with ring enhancement and more central enhancement in the coronal and sagittal images,suspicious for worsening of disease.No new areas involved.Electronically signed by: Delia Masters (Nov 26, 2022 14:20:28)
[2022-11-26] MEDS: ZOFRAN INJ 4 MG VIAL IVP PRN ×2 (15:41→21:07)
[2022-11-26] MEDS ORDERED: SOLU-Medrol 40 MG VIAL ONE (17:21)
[2022-11-26] MEDS: SOLU-Medrol 40 MG VIAL IVP SCH ×2 (17:23→21:03)
--- NOTE | 2022-11-26 20:49 | DR.H&P ---
H&P - History & Physical for Day of: H&P Date: 11/25/22 - Chief Complaint Chief Complaint: INCREASING WEAKNESS, DECREASED APPETITE, POOR PO INTAKE, SHORTNESS OF BREATH, POSTERIOR HEADACHE, PRODUCTIVE COUGH, NAUSEA, VOMITING, AND FATIGUE - History of Present Illness History of Present Illness: IS A 57 YEAR OLD PATIENT OF OURS. SHE PRESENTED TO THE ER WITH COMPLAINTS OF INCREASING WEAKNESS, DECREASED APPETITE, POOR PO INTAKE, SHORTNESS OF BREATH, POSTERIOR HEADACHE, PRODUCTIVE COUGH, NAUSEA, VOMITING, AND FATIGUE. HER SYMPTOMS STARTED ABOUT A WEEK AGO AND HAVE PROGRESSIVELY GOTTEN WORSE. SHE DENIES FEVER. SHE REPORTS BEING SEEN AT ANOTHER FACILITY 3 DAYS AGO. SHE HAD A CT OF THE BRAIN AND A CT OF THE CHEST. CHEST CT WAS NEGATIVE FOR EMBOLISM. SMALL PERICARDIAL EFFUSION WAS SEEN. BRAIN CT REVEALED A RIGHT SUPERIOR CEREBELLAR PEDUNCLE 7MM HYPERDENSE LESION WITH SURROUNDING HYPODENSITY COMPATIBLE WITH KNOWN BRAIN METASTASIS. THERE WAS ALSO A LEFT SUPERIOR CEREBELLAR HEMISPHERE 7MM METASTATIC LESION. MILD MASS EFFECT ON THE FOURTH VENTRICLE BUT NO HYDROCEPHALUS. ON ARRIVAL TO THIS FACILITY, HER VITALS WERE: 97.9-75-18-99%-143/66. LABS WERE OBTAINED. WBC 4.9, RBC 4.47, HGB 11.1, HCT 34.3, PLT COUNT 188, SODIUM 143, POTASSIUM 3.6, CHLORIDE 102, CARBON DIOXIDE 34.0, BUN 10, CREATININE 0.86, GLUCOSE 98, CALCIUM 8.9, TOTAL BILI 0.70, AST 18, ALT 17, ALK PHOS 159, TOTAL PROTEIN 6.7, ALBUMIN 3.87. URINALYSIS WAS OBTAINED AND REVEALED: WBC 0-2, RBC 0-2, BACTERIA 2+, LEUKOCYTES NEGATIVE. A CHEST XRAY WAS OBTAINED AND REVEALED: believe there is diffuse venous congestion, progressed since prior study. No pleural effusion or pneumothorax. IN THE ER, SHE WAS GIVEN A NORMAL SALINE BOLUS, MORPHINE SULFATE 4MG IV X 1, ZOFRAN 4MG IV X 2 DOSES, DILAUDID 1MG IV X 1, OTBS ACHS, K-DUR 20MEQ PO X 1. SHE WAS ADMITTED TO THE HOSPITAL FOR FURTHER EVALUATION AND TREATMENT OF NAUSEA AND VOMITING, WEAKNESS, SHORTNESS OF BREATH, HEADACHE, METASTATIC BRAIN CANCER. SHE WAS STARTED ON NORMAL SALINE AT 50 ML/HR, PEPCID 20MG IV Q12H, DILAUDID 1MG IV Q4H PRN, SOLU-MEDROL 40MG IV Q8H, ZOFRAN 4MG IV Q4H PRN, PROTONIX 40MG IV BID, K-DUR 20MEQ DAILY, ZYLOPRIM 1000MG DAILY, ELIQIS 5MG BID, NEURONTIN 300MG TID, NORCO 10/325MG QID PRN, REQUIP 3MG HS, ALECTINIB 150MG HS, AND TRAZODONE 200MG HS. WE WILL OBTAIN A BRAIN MRI WITH CONTRAST AND REPEAT A CHEST XRAY IN THE MORNING. OTHERWISE, WE WILL FOLLOW UP WITH AM LABS AND CONTINUE TO MONITOR. OTHERWISE, WE WILL FOLLOW UP WITH AM LABS AND CONTINUE TO MONITOR. TIME SPENT ON CLINICAL ASSESSMENT, REVIEWING LABS AND IMAGING, DECISION MAKING, AND DOCUMENTATION GREATER THAN 75 MINUTES. - Past Medical History Past Medical History: Anemia, COPD, GERD, Gout, PUD, Sleep Apnea Additional Medical History: PE, BRAIN CANCER, LUNG CANCER - Past Surgical History Surgical History: Hysterectomy, Ortho Surgery, Other - Family History Family Medical History: Diabetes Mellitus, Cancer, Hypertension - Social History Does patient currently use any type of tobacco product: No Have you used tobacco products in the last 12 months: No Type of Tobacco Use: None Does any household member use tobacco: No Alcohol Use: None Drug Use: None - Review of Systems Constitutional: Weakness Eyes: No Symptoms Reported ENT: No Symptoms Reported Respiratory: Cough, Shortness of Breath, SOB with Excertion Cardiovascular: No Symptoms Reported Gastrointestinal: Nausea, Vomiting Genitourinary: No Symptoms Reported Musculoskeletal: Back Pain Skin: No Symptoms Reported Neurological: Weakness, Confusion, Other (HEADACHE ) - Physical Exam Vital Signs: Vital Signs Temperature 98.6 F Temperature 97.8 F Pulse Rate [Left] 69 Pulse Rate [Left] 67 Respiratory Rate 20 Respiratory Rate 18 Respiratory Rate 15 Respiratory Rate 20 Blood Pressure [Left Arm] 160/76 Blood Pressure [Left Arm] 135/65 O2 Sat by Pulse Oximetry 96 O2 Sat by Pulse Oximetry 94 Oriented: Normal Eyes: Normal Ear: Normal Nose: Normal Throat: Normal Respiratory: Diminished Throughout Cardiovascular: Normal : Normal Auscultation: Bowel Sounds: Normal Palpation: Normal Tenderness: Normal Skin: Normal Musculoskeletal: Back:Lumbar, Tender Psychiatric: Normal Mood Description: Calm Affect: Normal Speech Pattern: Clear - Assessment/Plan (1) Nausea & vomiting Qualifiers: Vomiting type: unspecified Qualified Code(s): R11.2 - Nausea with vomiting, unspecified Status: Acute Plan: ADMIT, NORMAL SALINE AT 50 ML/HR, PEPCID 20MG IV Q12H, DILAUDID 1MG IV Q4H PRN, SOLU-MEDROL 40MG IV Q8H, ZOFRAN 4MG IV Q4H PRN, PROTONIX 40MG IV BID, K-DUR 20MEQ DAILY, ZYLOPRIM 1000MG DAILY, ELIQIS 5MG BID, NEURONTIN 300MG TID, NORCO 10/325MG QID PRN, REQUIP 3MG HS, ALECTINIB 150MG HS, AND TRAZODONE 200MG HS (2) Generalized weakness Status: Acute (3) Headache Qualifiers: Headache type: unspecified Headache chronicity pattern: acute headache Intractability: intractable Qualified Code(s): R51.9 - Headache, unspecified Status: Acute Plan: OBTAIN BRAIN MRI WITH CONTRAST (4) Shortness of breath Status: Acute (5) H/O malignant neoplasm of brain Status: Chronic (6) GERD (gastroesophageal reflux disease) Status: Chronic (7) Restless leg Status: Chronic (8) Anemia Qualifiers: Anemia type: unspecified type Qualified Code(s): D64.9 - Anemia, unspecified Status: Chronic - Allergies Allergies/Adverse Reactions: Allergies Allergy/AdvReac Type Severity Reaction Status Date / Time albuterol Allergy ANAPHALEXIS Verified 07/07/22 18:24 REACTION - Medications Home Medications: Home Medications Medication Instructions Recorded Confirmed alectinib 150 mg capsule (Alecensa) 150 mg PO QHS 11/25/22 11/25/22 allopurinol 100 mg tablet 100 mg PO QDAY 11/25/22 11/25/22 apixaban 5 mg tablet (Eliquis) 5 mg PO BID 11/25/22 11/25/22 gabapentin 300 mg capsule 300 mg PO TID 11/25/22 11/25/22 hydrocodone 10 mg-acetaminophen 1 tab PO QID PRN 11/25/22 11/25/22 325 mg tablet ibuprofen 800 mg tablet (IBU) 800 mg PO TID PRN 11/25/22 11/25/22 pantoprazole 40 mg tablet,delayed 40 mg PO BID 11/25/22 11/25/22 release ropinirole 3 mg tablet 3 mg PO QPM 11/25/22 11/25/22 tramadol 50 mg tablet 50 mg PO BID PRN 11/25/22 11/25/22 trazodone 100 mg tablet 200 mg PO QPM PRN 11/25/22 11/25/22
[2022-11-26] MEDS: DESYREL PO SCH (21:02)
[2022-11-26] MEDS: PROTONIX INJ 40 MG VIAL IVP SCH (21:03)
[2022-11-26] MEDS: REQUIP PO SCH (21:03)
[2022-11-27] MEDS: SOLU-Medrol 40 MG VIAL IVP SCH ×2 (05:05→14:54)
[2022-11-27] MEDS: NS 1,000 ML IV 1,000 ML IV SCH (05:05)
[2022-11-27] MEDS: NEURONTIN CAP 300 MG PO SCH ×3 (05:05→21:28)
[2022-11-27] MEDS: CORTISPORIN OTIC SUSP EACH EAR SCH ×3 (05:06→21:28)
[2022-11-27] MEDS: NORCO 10/325 TAB PO PRN (05:07)
--- NOTE | 2022-11-27 06:21 | RAD ---
HISTORYShortness of breath. History of brain lung cancer status post left lower lobe lobectomy.STUDYCHEST, 1 [id number]/2023.FINDINGSThe trachea is midline. The cardiac silhouette is at the upper limits of normal in size. Left basilar pleural parenchymal opacities persist, but are slightly improved compared with the previous day. The left upper lung zone and right lung are clear. There is no pneumothorax. The bony thorax is grossly unremarkable.IMPRESSIONImproving left basilar pleural parenchymal opacities compared with the previous day. Remainder of the exam is unchanged.Electronically signed by: ENMANUEL LOPEZ (Nov 27, 2022 06:19:40)
[2022-11-27] MEDS: ZOFRAN INJ 4 MG VIAL IVP PRN (08:15)
[2022-11-27] MEDS: ELIQUIS PO SCH ×2 (08:15→20:43)
[2022-11-27] MEDS: PROTONIX INJ 40 MG VIAL IVP SCH ×2 (08:15→20:47)
[2022-11-27] MEDS: K-DUR TAB 20 MEQ PO SCH (08:15)
[2022-11-27] MEDS: PEPCID 20 MG VIAL 20 MG in NS 50 ML IV 50 ML IV SCH ×2 (08:15→20:43)
[2022-11-27] MEDS: ZYLOPRIM PO SCH (08:30)
[2022-11-27 08:49] LABS: BASOPHILS % (AUTO) 0.3 % (0.2-1.0); EOSINOPHILS # (AUTO) 0.1 x10^3/uL (0.0-0.2); EOSINOPHILS % (AUTO) 1.2 % (0.9-2.9); HEMATOCRIT 35.9 % (36.0-47.0); HEMOGLOBIN 11.4 g/dL (12.0-16.0); LYMPHOCYTES # (AUTO) 0.5 X10^3/uL (1.3-2.9); LYMPHOCYTES % (AUTO) 10.6 % (21.0-51.0); MEAN CORPUSCULAR HEMOGLOBIN 24.6 pg (27.0-34.0); MEAN CORPUSCULAR HGB CONC 31.9 g/dL (33.0-35.0); MEAN CORPUSCULAR VOLUME 77.3 fL (80.0-100.0); MEAN PLATELET VOLUME 10.1 fL (7.4-11.0); MONOCYTES # (AUTO) 0 x10^3/uL (0.3-0.8); MONOCYTES % (AUTO) 0.9 % (0.0-13.0); PLATELET COUNT 216 X10^3/uL (150.0-450.0); RED BLOOD COUNT 4.64 X10^6/uL (3.5-5.4); RED CELL DISTRIBUTION WIDTH 23.5 % (11.6-16.5); WHITE BLOOD COUNT 4.6 X10^3/uL (3.6-10.0)
[2022-11-27 09:02] LABS: ALANINE AMINOTRANSFERASE 20 Units/L (12-78); ALBUMIN 3.7 g/dL (3.4-5.0); ALKALINE PHOSPHATASE 167 Units/L (46-116); ASPARTATE AMINO TRANSFERASE 16 Units/L (15-37); BLOOD UREA NITROGEN 10 mg/dL (7-18); CALCIUM 9.3 mg/dL (8.5-10.1); CHLORIDE 103 mmol/L (98-107); COR NA(FOR HYPERGLY) 142 mmol/L (136-145); CREATININE 0.85 mg/dL (0.55-1.02); GLUCOSE 151 mg/dL (65-99); POTASSIUM 4.5 mmol/L (3.5-5.1); SODIUM 141 mmol/L (136-145); eGFR NON BLACK RACES > 60 (>60)
[2022-11-27 09:11] LABS: ANISOCYTOSIS 2+; BURR CELLS PRESENT; HYPOCHROMASIA SLIGHT; MICROCYTOSIS SLIGHT; PLATELET MORPHOLOGY COMMENT NORMAL (NORMAL)
[2022-11-27] MEDS: ZOFRAN INJ 4 MG VIAL IVP SCH ×2 (12:00→16:44)
[2022-11-27] MEDS: MAG-OX TAB PO SCH ×2 (16:52→18:32)
[2022-11-27] MEDS ORDERED: CONSULT PHARMACY - POTASSIUM & MAGNESIUM XX SCH (17:00)
[2022-11-27] MEDS: DESYREL PO SCH (20:39)
[2022-11-27] MEDS: REQUIP PO SCH (20:46)
[2022-11-27] MEDS: SOLU-Medrol 125 MG VIAL IVP SCH (21:30)
[2022-11-28] MEDS: NS 1,000 ML IV 1,000 ML IV SCH ×2 (06:21→20:25)
[2022-11-28] MEDS: CORTISPORIN OTIC SUSP EACH EAR SCH ×3 (06:22→21:15)
[2022-11-28] MEDS: NEURONTIN CAP 300 MG PO SCH ×3 (06:22→21:14)
[2022-11-28] MEDS: SOLU-Medrol 125 MG VIAL IVP SCH ×3 (06:23→21:14)
[2022-11-28 06:24] LABS: BASOPHILS % (AUTO) 0.1 % (0.2-1.0); LYMPHOCYTES # (AUTO) 0.3 X10^3/uL (1.3-2.9); LYMPHOCYTES % (AUTO) 6.5 % (21.0-51.0); MEAN CORPUSCULAR HEMOGLOBIN 24.8 pg (27.0-34.0); MEAN CORPUSCULAR HGB CONC 32.4 g/dL (33.0-35.0); MEAN CORPUSCULAR VOLUME 76.6 fL (80.0-100.0); MEAN PLATELET VOLUME 10.4 fL (7.4-11.0); MONOCYTES # (AUTO) 0.1 x10^3/uL (0.3-0.8); NEUTROPHILS # (AUTO) 4.3 x10^3/uL (2.2-4.8); NEUTROPHILS % (AUTO) 91.4 % (42.0-75.0); PLATELET COUNT 196 X10^3/uL (150.0-450.0); RED BLOOD COUNT 4.44 X10^6/uL (3.5-5.4); RED CELL DISTRIBUTION WIDTH 23.5 % (11.6-16.5); WHITE BLOOD COUNT 4.7 X10^3/uL (3.6-10.0)
[2022-11-28] MEDS: ZOFRAN INJ 4 MG VIAL IVP SCH ×3 (06:32→17:58)
[2022-11-28 06:43] LABS: ALANINE AMINOTRANSFERASE 18 Units/L (12-78); ALBUMIN 3.4 g/dL (3.4-5.0); ALKALINE PHOSPHATASE 140 Units/L (46-116); ASPARTATE AMINO TRANSFERASE 14 Units/L (15-37); BLOOD UREA NITROGEN 13 mg/dL (7-18); CALCIUM 9.2 mg/dL (8.5-10.1); CARBON DIOXIDE 33.2 mmol/L (21-32); CHLORIDE 105 mmol/L (98-107); COR NA(FOR HYPERGLY) 144 mmol/L (136-145); CREATININE 0.82 mg/dL (0.55-1.02); GLUCOSE 155 mg/dL (65-99); MAGNESIUM 2.2 mg/dL (2.0-2.9); POTASSIUM 4.1 mmol/L (3.5-5.1); SODIUM 143 mmol/L (136-145); TOTAL PROTEIN 6.3 g/dL (6.4-8.2); eGFR NON BLACK RACES > 60 (>60)
[2022-11-28 07:14] LABS: ANISOCYTOSIS 2+; HYPOCHROMASIA SLIGHT; MICROCYTOSIS SLIGHT; PLATELET MORPHOLOGY COMMENT NORMAL (NORMAL)
[2022-11-28 07:15] LABS: BURR CELLS PRESENT
--- NOTE | 2022-11-28 08:16 | RAD ---
HISTORYSOB, left lower lobectomy lung cancerSTUDYAP chestCOMPARISONJuly 2022FINDINGSThere is no definite interval change since 1 day prior. Radiographic detail of heart and lungs is diminished by patient habitus and soft tissue attenuation.Suspect persistent infiltrate or atelectasis in the obscured left lower lung. No new abnormality is noted.IMPRESSIONNo change; see above.Electronically signed by: VIRGINIA BROWN (Nov 28, 2022 08:14:30)
[2022-11-28] MEDS: PROTONIX INJ 40 MG VIAL IVP SCH ×2 (09:14→21:14)
[2022-11-28] MEDS: PEPCID 20 MG VIAL 20 MG in NS 50 ML IV 50 ML IV SCH ×2 (09:14→21:14)
[2022-11-28] MEDS: ZYLOPRIM PO SCH (09:14)
[2022-11-28] MEDS: ELIQUIS PO SCH ×2 (09:14→21:14)
[2022-11-28] MEDS ORDERED: MILK OF MAGNESIA PO PRN (20:08)
[2022-11-28] MEDS ORDERED: COLACE CAP 100 MG PO PRN (20:08)
[2022-11-28] MEDS: REQUIP PO SCH (21:14)
[2022-11-28] MEDS: DESYREL PO SCH (21:15)
[2022-11-29] MEDS: NS 1,000 ML IV 1,000 ML IV SCH ×2 (03:28→21:55)
[2022-11-29] MEDS: CORTISPORIN OTIC SUSP EACH EAR SCH ×3 (05:02→21:22)
[2022-11-29] MEDS: SOLU-Medrol 125 MG VIAL IVP SCH (05:02)
[2022-11-29] MEDS: NEURONTIN CAP 300 MG PO SCH ×3 (05:03→21:23)
[2022-11-29] MEDS: ZOFRAN INJ 4 MG VIAL IVP SCH ×3 (05:36→17:30)
--- NOTE | 2022-11-29 05:39 | RAD ---
PROCEDURE: Chest X-ray 1 View .HISTORY: Dyspnea and asthenia.TECHNIQUE: AP view .COMPARISON: 11/28/2022.TECHNICAL QUALITY: Satisfactory .FINDINGS:Unchanged mild cardiomegaly.Mediastinum and hilar regions show no masses or lymphadenopathy .Normal central vascularity .Continued consolidation and atelectasis left base may represent pneumonia. Right lung nichols clear. No definite pleural fluid.No acute bony abnormality .IMPRESSION:1. Unchanged left basilar pneumonia.2. Unchanged mild cardiomegaly.Electronically signed by: Navin Caro (Nov 29, 2022 05:37:53)
[2022-11-29 06:17] LABS: BASOPHILS % (AUTO) 0.1 % (0.2-1.0); HEMATOCRIT 33.9 % (36.0-47.0); HEMOGLOBIN 11.2 g/dL (12.0-16.0); LYMPHOCYTES # (AUTO) 0.3 X10^3/uL (1.3-2.9); LYMPHOCYTES % (AUTO) 8.1 % (21.0-51.0); MEAN CORPUSCULAR HEMOGLOBIN 25.3 pg (27.0-34.0); MEAN CORPUSCULAR HGB CONC 32.9 g/dL (33.0-35.0); MEAN CORPUSCULAR VOLUME 76.9 fL (80.0-100.0); MEAN PLATELET VOLUME 10.6 fL (7.4-11.0); MONOCYTES # (AUTO) 0.1 x10^3/uL (0.3-0.8); MONOCYTES % (AUTO) 2.3 % (0.0-13.0); NEUTROPHILS # (AUTO) 3.8 x10^3/uL (2.2-4.8); NEUTROPHILS % (AUTO) 89.5 % (42.0-75.0); PLATELET COUNT 193 X10^3/uL (150.0-450.0); RED BLOOD COUNT 4.41 X10^6/uL (3.5-5.4); RED CELL DISTRIBUTION WIDTH 23.7 % (11.6-16.5); WHITE BLOOD COUNT 4.3 X10^3/uL (3.6-10.0)
[2022-11-29 06:22] LABS: ALANINE AMINOTRANSFERASE 15 Units/L (12-78); ALBUMIN 3.4 g/dL (3.4-5.0); ALKALINE PHOSPHATASE 128 Units/L (46-116); ASPARTATE AMINO TRANSFERASE 12 Units/L (15-37); BLOOD UREA NITROGEN 20 mg/dL (7-18); CALCIUM 8.9 mg/dL (8.5-10.1); CARBON DIOXIDE 33.8 mmol/L (21-32); CHLORIDE 106 mmol/L (98-107); COR NA(FOR HYPERGLY) 144 mmol/L (136-145); GLUCOSE 152 mg/dL (65-99); MAGNESIUM 2.2 mg/dL (2.0-2.9); POTASSIUM 4.2 mmol/L (3.5-5.1); SODIUM 143 mmol/L (136-145); TOTAL PROTEIN 6.2 g/dL (6.4-8.2); eGFR NON BLACK RACES > 60 (>60)
[2022-11-29 07:25] LABS: ANISOCYTOSIS 2+; BURR CELLS SLIGHT; HYPOCHROMASIA SLIGHT; MICROCYTOSIS SLIGHT; PLATELET MORPHOLOGY COMMENT NORMAL (NORMAL)
[2022-11-29] MEDS: PROTONIX INJ 40 MG VIAL IVP SCH ×2 (08:40→21:22)
[2022-11-29] MEDS: PEPCID 20 MG VIAL 20 MG in NS 50 ML IV 50 ML IV SCH ×2 (08:40→21:22)
[2022-11-29] MEDS: ELIQUIS PO SCH ×2 (08:41→21:21)
[2022-11-29] MEDS: ZYLOPRIM PO SCH (08:41)
[2022-11-29] MEDS: PULMICORT NEB TX 0.5 MG NEB SCH ×2 (09:01→21:03)
[2022-11-29] MEDS: LEVAQUIN PREMIX IV 500 MG 500 MG/100 ML BAG IV SCH (09:50)
--- NOTE | 2022-11-29 10:53 | PCM.PROG ---
Progress Note - Progress Note for Day of Date of Exam: 11/27/22 - Subjective Subjective: IS CURRENTLY OBSERVATION STATUS FOR TREATMENT OF INTRACTABLE NAUSEA AND VOMITING, GENERALIZED WEAKNESS, POSTERIOR HEADACHE, AND SHORTNESS OF BREATH. SHE HAS A HISTORY OF MALIGNANT NEOPLASM OF THE BRAIN, GERD, RESTLESS LEGS, AND ANEMIA. TODAY, SHE IS ALERT AND ORIENTED, LYING IN BED ON MORNING ROUNDS. SHE DENIES SIGNIFICANT IMPROVEMENT IN SYMPTOMS SINCE ADMISSION. SHE REPORTS INCREASED NAUSEA WITH EATING. HEADACHE AND WEAKNESS HAVE BEEN PERSISTENT. ON EXAMINATION, HEART IS REGULAR IN RATE AND RHYTHM. BILATERAL LUNGS ARE NOTED WITH DIMINISHED LUNG SOUNDS THROUGHOUT. ABDOMEN IS ROUND, SOFT, AND NON-TENDER WITH NORMAL BOWEL SOUNDS NOTED IN ALL QUADRANTS. GOOD RANGE OF MOTION NOTED TO UPPER AND LOWER EXTREMITIES. TRACE EDEMA NOTED TO BLE. HER VITALS THIS MORNING ARE: 97.6-74-20-94%-115/65. LABS WERE OBTAINED. WBC 4.6, RBC 4.64, HGB 11.4, HCT 35.9, PLT COUNT 216, SODIUM 141, POTASSIUM 4.5, CHLORIDE 103, BUN 10, CREATININE 0.85, GLUCOSE 151, CALCIUM 9.3, AST 16, ALT 20, ALK PHOS 167, TOTAL PROTEIN 7.0, ALBUMIN 3.7. A CHEST XRAY WAS OBTAINED AND REVEALED: Improving left basilar pleural parenchymal opacities compared with the previous day. Remainder of the exam is unchanged. WE REPEATED A BRAIN MRI THIS MORNING. IT REVEALED: New vasogenic edema involving the right middle cerebellar peduncle with solid heterogeneous enhancing lesion in the area with minimal restricted diffusion, it could represent worsening of disease versus radiation necrosis, the pattern of enhancement is heterogeneous and predominantly solid, favoring worsening of disease. Increase in size left cerebellar lesion with ring enhancement and more central enhancement in the coronal and sagittal images, suspicious for worsening of disease. No new areas involved. SHE IS CURRENTLY RECEIVING NORMAL SALINE AT 50 ML/HR, PEPCID 20MG IV Q12H, DILAUDID 1MG IV Q4H PRN, SOLU-MEDROL 40MG IV Q8H, ZOFRAN 4MG IV Q4H PRN, PROTONIX 40MG IV BID, K-DUR 20MEQ DAILY, ZYLOPRIM 1000MG DAILY, ELIQIS 5MG BID, NEURONTIN 300MG TID, NORCO 10/325MG QID PRN, REQUIP 3MG HS, ALECTINIB 150MG HS, AND TRAZODONE 200MG HS. WE WILL INCREASE HER ZOFRAN TO 8MG IV BEFORE MEALS AND START SOLU-MEDROL 125MG IV Q8H. WE WILL CONSULT PHARMACY FOR MAGNESIUM REPLACEMENT. OTHERWISE, WE WILL FOLLOW UP WITH AM LABS AND CONTINUE TO MONITOR. TIME SPENT ON CLINICAL ASSESSMENT, REVIEWING LABS AND IMAGING, DECISION MAKING, AND DOCUMENTATION GREATER THAN 45 MINUTES. - Past Medical Family Social History Past Med/Fam/Surg Hx: No changes since H&P Allergies: Allergies albuterol Allergy (Verified 07/07/22 18:24) ANAPHALEXIS REACTION throat swells up - Review of Systems ROS: No change since H&P - Vital Signs and I&O's Vital Signs: Vital Signs Temperature 98 F Temperature 98 F Pulse Rate [Left] 52 Pulse Rate 47 Respiratory Rate 18 Respiratory Rate 18 Blood Pressure [Left Arm] 142/65 Blood Pressure 119/58 O2 Sat by Pulse Oximetry 93 O2 Sat by Pulse Oximetry 97 O2 Sat by Pulse Oximetry 97 Intake and Output: Intake & Output 11/26/22 11/27/22 11/28/22 11/29/22 11:59 11:59 11:59 11:59 Intake Total 440 / 440 1886 / 1886 1753 / 1753 1144 / 1144 Balance 440 / 440 1886 / 1886 1753 / 1753 1144 / 1144 - Physical Exam Oriented: Normal Eyes: Normal Ear: Normal Nose: Normal Throat: Normal Respiratory: Generalized, Diminished Cardiovascular: Normal : Normal Auscultation: Bowel Sounds: Normal Palpation: Normal Tenderness: Normal Skin: Normal Musculoskeletal: Back:Lumbar, Tender Psychiatric: Normal Mood Description: Calm Affect: Normal Speech Pattern: Clear, Appropriate - Laboratory and Diagnostics Result Diagrams: 11/29/22 05:25 11/29/22 05:25 Labs: Laboratory WBC 4.3 X10^3/uL (3.6-10.0) 11/29/22 05:25 RBC 4.41 X10^6/uL (3.5-5.4) 11/29/22 05:25 Hgb 11.2 g/dL (12.0-16.0) L 11/29/22 05:25 Hct 33.9 % (36.0-47.0) L 11/29/22 05:25 MCV 76.9 fL (80.0-100.0) L 11/29/22 05:25 MCH 25.3 pg (27.0-34.0) L 11/29/22 05:25 MCHC 32.9 g/dL (33.0-35.0) L 11/29/22 05:25 RDW 23.7 % (11.6-16.5) H 11/29/22 05:25 Plt Count 193 X10^3/uL (150.0-450.0) 11/29/22 05:25 Plt Count Comment Adequate (ADEQUATE) 11/29/22 05:25 MPV 10.6 fL (7.4-11.0) 11/29/22 05:25 Neut % (Auto) 89.5 % (42.0-75.0) H 11/29/22 05:25 Lymph % (Auto) 8.1 % (21.0-51.0) L 11/29/22 05:25 [place] % (Auto) 2.3 % (0.0-13.0) 11/29/22 05:25 Eos % (Auto) 0.0 % (0.9-2.9) L 11/29/22 05:25 Baso % (Auto) 0.1 % (0.2-1.0) L 11/29/22 05:25 Neut # (Auto) 3.8 x10^3/uL (2.2-4.8) 11/29/22 05:25 Lymph # (Auto) 0.3 X10^3/uL (1.3-2.9) L 11/29/22 05:25 [place] # (Auto) 0.1 x10^3/uL (0.3-0.8) L 11/29/22 05:25 Eos # (Auto) 0.0 x10^3/uL (0.0-0.2) 11/29/22 05:25 Baso # (Auto) 0.0 X10^3/uL (0.0-0.1) 11/29/22 05:25 Absolute Nucleated RBC 0.0 /100WBC 11/29/22 05:25 Total Counted 100 11/28/22 05:18 Neutrophils % (Manual) 90 % (39-76) H 11/28/22 05:18 Lymphocytes % (Manual) 8 % (13-43) L 11/28/22 05:18 Monocytes % (Manual) 2 % (4-9) L 11/28/22 05:18 Plt Morphology Comment Normal (NORMAL) 11/29/22 05:25 RBC Morphology Abnormal (NORMAL) A 11/29/22 05:25 Hypochromasia Slight A 11/29/22 05:25 Anisocytosis 2+ A 11/29/22 05:25 Microcytosis Slight A 11/29/22 05:25 Ovalocytes Slight A 11/26/22 05:38 Magdaleno Cells Slight A 11/29/22 05:25 Sodium 143 mmol/L (136-145) 11/29/22 05:25 Corrected Sodium 144 mmol/L (136-145) 11/29/22 05:25 Potassium 4.2 mmol/L (3.5-5.1) 11/29/22 05:25 Chloride 106 mmol/L (98-107) 11/29/22 05:25 Carbon Dioxide 33.8 mmol/L (21-32) H 11/29/22 05:25 BUN 20 mg/dL (7-18) H 11/29/22 05:25 Creatinine 0.90 mg/dL (0.55-1.02) 11/29/22 05:25 Est GFR (MDRD) Af Amer > 60 (>60) 11/29/22 05:25 Est GFR (MDRD) Non-Af > 60 (>60) 11/29/22 05:25 Glucose 152 mg/dL (65-99) H 11/29/22 05:25 POC Glucose (mg/dL) 95 mg/dL (65-99) 11/25/22 21:08 Calcium 8.9 mg/dL (8.5-10.1) 11/29/22 05:25 Corrected Calcium TNP 11/29/22 05:25 Magnesium 2.2 mg/dL (2.0-2.9) 11/29/22 05:25 Total Bilirubin 0.40 mg/dL (0.2-1.0) 11/29/22 05:25 AST 12 Units/L (15-37) L 11/29/22 05:25 ALT 15 Units/L (12-78) 11/29/22 05:25 Alkaline Phosphatase 128 Units/L (46-116) H 11/29/22 05:25 Total Protein 6.2 g/dL (6.4-8.2) L 11/29/22 05:25 Albumin 3.4 g/dL (3.4-5.0) 11/29/22 05:25 Globulin 2.8 g/dL (2.5-4.5) 11/29/22 05:25 Albumin/Globulin Ratio 1.2 Ratio (1.1-2.1) 11/29/22 05:25 Lipase 60 Units/L (73-393) L 11/25/22 17:19 Specimen Type Clean catch urine 11/25/22 16:45 Urine Color Dark yellow (YELLOW) 11/25/22 16:45 Urine Appearance Clear (CLEAR) 11/25/22 16:45 Urine pH 6.5 (5.0 - 8.0) 11/25/22 16:45 Ur Specific [place] 1.020 (1.000-1.030) 11/25/22 16:45 Urine Protein 1+ (NEGATIVE) 11/25/22 16:45 Urine Glucose (UA) Negative (NEGATIVE) 11/25/22 16:45 Urine Ketones Negative (NEGATIVE) 11/25/22 16:45 Urine Blood Negative (NEGATIVE) 11/25/22 16:45 Urine Nitrite Negative (NEGATIVE) 11/25/22 16:45 Urine Bilirubin Negative (NEGATIVE) 11/25/22 16:45 Urine Urobilinogen 1+ (NORMAL) 11/25/22 16:45 Ur Leukocyte Esterase Negative (NEGATIVE) 11/25/22 16:45 Urine RBC 0-2 /HPF (0-3) 11/25/22 16:45 Urine WBC 0-2 /HPF (0-5) 11/25/22 16:45 Ur Squamous Epith Cells Numerous /HPF (NEGATIVE) 11/25/22 16:45 Urine Bacteria 2+ /HPF (NEGATIVE) 11/25/22 16:45 Urine Mucus Many /HPF (NEGATIVE) 11/25/22 16:45 Ur Culture Indicated? No/not indicated 11/25/22 16:45 - Plan (1) Nausea & vomiting Status: Acute Qualifiers: Vomiting type: unspecified Qualified Code(s): R11.2 - Nausea with vomiting, unspecified Plan: NORMAL SALINE AT 50 ML/HR, SOLU-MEDROL 125MG IV Q8H, PEPCID 20MG IV Q12H, DILAUDID 1MG IV Q4H PRN, ZOFRAN 8MG IV BEFORE MEALS, PROTONIX 40MG IV BID, K-DUR 20MEQ DAILY, ZYLOPRIM 1000MG DAILY, ELIQIS 5MG BID, NEURONTIN 300MG TID, NORCO 10/325MG QID PRN, REQUIP 3MG HS, ALECTINIB 150MG HS, AND TRAZODONE 200MG HS (2) Generalized weakness Status: Acute (3) Headache Status: Acute Qualifiers: Headache type: unspecified Headache chronicity pattern: acute headache Intractability: intractable Qualified Code(s): R51.9 - Headache, unspecified (4) Shortness of breath Status: Acute (5) H/O malignant neoplasm of brain Status: Chronic (6) GERD (gastroesophageal reflux disease) Status: Chronic (7) Restless leg Status: Chronic (8) Anemia Status: Chronic Qualifiers: Anemia type: unspecified type Qualified Code(s): D64.9 - Anemia, unspecified
[2022-11-29] MEDS: XOPENEX 1.25 MG/3 ML NEBULE NEB SCH ×3 (12:09→18:28)
--- NOTE | 2022-11-29 12:17 | PCM.PROG ---
Progress Note - Progress Note for Day of Date of Exam: 11/28/22 - Subjective Subjective: IS CURRENTLY OBSERVATION STATUS FOR TREATMENT OF INTRACTABLE NAUSEA AND VOMITING, GENERALIZED WEAKNESS, POSTERIOR HEADACHE, AND SHORTNESS OF BREATH. SHE HAS A HISTORY OF MALIGNANT NEOPLASM OF THE BRAIN, GERD, RESTLESS LEGS, AND ANEMIA. TODAY, SHE IS ALERT AND ORIENTED, LYING IN BED ON MORNING ROUNDS. SHE REPORTS SLIGHT IMPROVEMENT IN SYMPTOMS SINCE WE SAW HER YESTERDAY. ON EXAMINATION, HEART IS REGULAR IN RATE AND RHYTHM. BILATERAL LUNGS ARE NOTED WITH DIMINISHED LUNG SOUNDS THROUGHOUT. ABDOMEN IS ROUND, SOFT, AND NON-TENDER WITH NORMAL BOWEL SOUNDS NOTED IN ALL QUADRANTS. GOOD RANGE OF MOTION NOTED TO UPPER AND LOWER EXTREMITIES. TRACE EDEMA NOTED TO BLE. HER VITALS THIS MORNING ARE: 97.7-61-18-93%-142/62. LABS WERE OBTAINED. WBC 4.7, RBC 4.44, HGB 11.0, HCT 34.0, PLT COUNT 196, SODIUM 143, POTASSIUM 4.1, CHLORIDE 105, BUN 13, CREATININE 0.82, GLUCOSE 155, CALCIUM 9.2, MAGNESIUM 2.2, AST 14, ALT 18, ALK PHOS 140, TOTAL PROTEIN 6.3, ALBUMIN 3.4. A CHEST XRAY WAS OBTAINED AND REVEALED: There is no definite interval change since 1 day prior. Radiographic detail of heart and lungs is diminished by patient habitus and soft tissue attenuation. Suspect persistent infiltrate or atelectasis in the obscured left lower lung. No new abnormality is noted. SHE IS CURRENTLY RECEIVING NORMAL SALINE AT 50 ML/HR, PEPCID 20MG IV Q12H, DILAUDID 1MG IV Q4H PRN, SOLU-MEDROL 120 MG IV Q8H, ZOFRAN 8MG IV TID AC, PROTONIX 40MG IV BID, K-DUR 20MEQ DAILY, ZYLOPRIM 1000MG DAILY, ELIQIS 5MG BID, NEURONTIN 300MG TID, NORCO 10/325MG QID PRN, REQUIP 3MG HS, ALECTINIB 150MG HS, AND TRAZODONE 200MG HS. WE WILL CONSULT PHARMACY FOR MAGNESIUM REPLACEMENT. OTHERWISE, WE WILL FOLLOW UP WITH AM LABS AND CONTINUE TO MONITOR. TIME SPENT ON CLINICAL ASSESSMENT, REVIEWING LABS AND IMAGING, DECISION MAKING, AND DOCUMENTATION GREATER THAN 45 MINUTES. - Past Medical Family Social History Past Med/Fam/Surg Hx: No changes since H&P Allergies: Allergies albuterol Allergy (Verified 07/07/22 18:24) ANAPHALEXIS REACTION throat swells up - Review of Systems ROS: No change since H&P - Vital Signs and I&O's Vital Signs: Vital Signs Temperature 98.0 F Temperature 98 F Pulse Rate [Left] 67 Pulse Rate 47 Respiratory Rate 20 Respiratory Rate 18 Blood Pressure [Left Arm] 118/62 Blood Pressure 119/58 O2 Sat by Pulse Oximetry 93 O2 Sat by Pulse Oximetry 95 O2 Sat by Pulse Oximetry 97 Intake and Output: Intake & Output 11/27/22 11/28/22 11/29/22 11/30/22 11:59 11:59 11:59 11:59 Intake Total 1885 1753 / 175 1144 / 1144 Balance 1885 / 1752 1144 / 1144 - Physical Exam Oriented: Normal Eyes: Normal Ear: Normal Nose: Normal Throat: Normal Respiratory: Generalized, Diminished Cardiovascular: Normal : Normal Auscultation: Bowel Sounds: Normal Palpation: Normal Tenderness: Normal Skin: Normal Musculoskeletal: Back:Lumbar, Tender Psychiatric: Normal Mood Description: Calm Affect: Normal Speech Pattern: Clear, Appropriate - Laboratory and Diagnostics Result Diagrams: 11/29/22 05:25 11/29/22 05:25 Labs: Laboratory WBC 4.3 X10^3/uL (3.6-10.0) 11/29/22 05:25 RBC 4.41 X10^6/uL (3.5-5.4) 11/29/22 05:25 Hgb 11.2 g/dL (12.0-16.0) L 11/29/22 05:25 Hct 33.9 % (36.0-47.0) L 11/29/22 05:25 MCV 76.9 fL (80.0-100.0) L 11/29/22 05:25 MCH 25.3 pg (27.0-34.0) L 11/29/22 05:25 MCHC 32.9 g/dL (33.0-35.0) L 11/29/22 05:25 RDW 23.7 % (11.6-16.5) H 11/29/22 05:25 Plt Count 193 X10^3/uL (150.0-450.0) 11/29/22 05:25 Plt Count Comment Adequate (ADEQUATE) 11/29/22 05:25 MPV 10.6 fL (7.4-11.0) 11/29/22 05:25 Neut % (Auto) 89.5 % (42.0-75.0) H 11/29/22 05:25 Lymph % (Auto) 8.1 % (21.0-51.0) L 11/29/22 05:25 [place] % (Auto) 2.3 % (0.0-13.0) 11/29/22 05:25 Eos % (Auto) 0.0 % (0.9-2.9) L 11/29/22 05:25 Baso % (Auto) 0.1 % (0.2-1.0) L 11/29/22 05:25 Neut # (Auto) 3.8 x10^3/uL (2.2-4.8) 11/29/22 05:25 Lymph # (Auto) 0.3 X10^3/uL (1.3-2.9) L 11/29/22 05:25 [place] # (Auto) 0.1 x10^3/uL (0.3-0.8) L 11/29/22 05:25 Eos # (Auto) 0.0 x10^3/uL (0.0-0.2) 11/29/22 05:25 Baso # (Auto) 0.0 X10^3/uL (0.0-0.1) 11/29/22 05:25 Absolute Nucleated RBC 0.0 /100WBC 11/29/22 05:25 Total Counted 100 11/28/22 05:18 Neutrophils % (Manual) 90 % (39-76) H 11/28/22 05:18 Lymphocytes % (Manual) 8 % (13-43) L 11/28/22 05:18 Monocytes % (Manual) 2 % (4-9) L 11/28/22 05:18 Plt Morphology Comment Normal (NORMAL) 11/29/22 05:25 RBC Morphology Abnormal (NORMAL) A 11/29/22 05:25 Hypochromasia Slight A 11/29/22 05:25 Anisocytosis 2+ A 11/29/22 05:25 Microcytosis Slight A 11/29/22 05:25 Ovalocytes Slight A 11/26/22 05:38 Magdaleno Cells Slight A 11/29/22 05:25 Sodium 143 mmol/L (136-145) 11/29/22 05:25 Corrected Sodium 144 mmol/L (136-145) 11/29/22 05:25 Potassium 4.2 mmol/L (3.5-5.1) 11/29/22 05:25 Chloride 106 mmol/L (98-107) 11/29/22 05:25 Carbon Dioxide 33.8 mmol/L (21-32) H 11/29/22 05:25 BUN 20 mg/dL (7-18) H 11/29/22 05:25 Creatinine 0.90 mg/dL (0.55-1.02) 11/29/22 05:25 Est GFR (MDRD) Af Amer > 60 (>60) 11/29/22 05:25 Est GFR (MDRD) Non-Af > 60 (>60) 11/29/22 05:25 Glucose 152 mg/dL (65-99) H 11/29/22 05:25 POC Glucose (mg/dL) 95 mg/dL (65-99) 11/25/22 21:08 Calcium 8.9 mg/dL (8.5-10.1) 11/29/22 05:25 Corrected Calcium TNP 11/29/22 05:25 Magnesium 2.2 mg/dL (2.0-2.9) 11/29/22 05:25 Total Bilirubin 0.40 mg/dL (0.2-1.0) 11/29/22 05:25 AST 12 Units/L (15-37) L 11/29/22 05:25 ALT 15 Units/L (12-78) 11/29/22 05:25 Alkaline Phosphatase 128 Units/L (46-116) H 11/29/22 05:25 Total Protein 6.2 g/dL (6.4-8.2) L 11/29/22 05:25 Albumin 3.4 g/dL (3.4-5.0) 11/29/22 05:25 Globulin 2.8 g/dL (2.5-4.5) 11/29/22 05:25 Albumin/Globulin Ratio 1.2 Ratio (1.1-2.1) 11/29/22 05:25 Lipase 60 Units/L (73-393) L 11/25/22 17:19 Specimen Type Clean catch urine 11/25/22 16:45 Urine Color Dark yellow (YELLOW) 11/25/22 16:45 Urine Appearance Clear (CLEAR) 11/25/22 16:45 Urine pH 6.5 (5.0 - 8.0) 11/25/22 16:45 Ur Specific [place] 1.020 (1.000-1.030) 11/25/22 16:45 Urine Protein 1+ (NEGATIVE) 11/25/22 16:45 Urine Glucose (UA) Negative (NEGATIVE) 11/25/22 16:45 Urine Ketones Negative (NEGATIVE) 11/25/22 16:45 Urine Blood Negative (NEGATIVE) 11/25/22 16:45 Urine Nitrite Negative (NEGATIVE) 11/25/22 16:45 Urine Bilirubin Negative (NEGATIVE) 11/25/22 16:45 Urine Urobilinogen 1+ (NORMAL) 11/25/22 16:45 Ur Leukocyte Esterase Negative (NEGATIVE) 11/25/22 16:45 Urine RBC 0-2 /HPF (0-3) 11/25/22 16:45 Urine WBC 0-2 /HPF (0-5) 11/25/22 16:45 Ur Squamous Epith Cells Numerous /HPF (NEGATIVE) 11/25/22 16:45 Urine Bacteria 2+ /HPF (NEGATIVE) 11/25/22 16:45 Urine Mucus Many /HPF (NEGATIVE) 11/25/22 16:45 Ur Culture Indicated? No/not indicated 11/25/22 16:45 - Plan (1) Nausea & vomiting Status: Acute Qualifiers: Vomiting type: unspecified Qualified Code(s): R11.2 - Nausea with vomiting, unspecified Plan: NORMAL SALINE AT 50 ML/HR, SOLU-MEDROL 125MG IV Q8H, PEPCID 20MG IV Q12H, DILAUDID 1MG IV Q4H PRN, ZOFRAN 8MG IV BEFORE MEALS, PROTONIX 40MG IV BID, K-DUR 20MEQ DAILY, ZYLOPRIM 1000MG DAILY, ELIQIS 5MG BID, NEURONTIN 300MG TID, NORCO 10/325MG QID PRN, REQUIP 3MG HS, ALECTINIB 150MG HS, AND TRAZODONE 200MG HS (2) Generalized weakness Status: Acute (3) Headache Status: Acute Qualifiers: Headache type: unspecified Headache chronicity pattern: acute headache Intractability: intractable Qualified Code(s): R51.9 - Headache, unspecified (4) Shortness of breath Status: Acute (5) H/O malignant neoplasm of brain Status: Chronic (6) GERD (gastroesophageal reflux disease) Status: Chronic (7) Restless leg Status: Chronic (8) Anemia Status: Chronic Qualifiers: Anemia type: unspecified type Qualified Code(s): D64.9 - Anemia, unspecified
[2022-11-29] MEDS ORDERED: DECADRON INJ IVP SCH (14:00)
--- NOTE | 2022-11-29 19:10 | PCM.PROG ---
Progress Note - Progress Note for Day of Date of Exam: 11/29/22 - Subjective Subjective: IS CURRENTLY OBSERVATION STATUS FOR TREATMENT OF INTRACTABLE NAUSEA AND VOMITING, GENERALIZED WEAKNESS, POSTERIOR HEADACHE, AND SHORTNESS OF BREATH. SHE HAS A HISTORY OF MALIGNANT NEOPLASM OF THE BRAIN, GERD, RESTLESS LEGS, AND ANEMIA. TODAY, SHE IS ALERT AND ORIENTED, LYING IN BED ON MORNING ROUNDS. SHE REPORTS SLIGHT IMPROVEMENT IN SYMPTOMS SINCE WE SAW HER YESTERDAY. ON EXAMINATION, HEART IS REGULAR IN RATE AND RHYTHM. BILATERAL LUNGS ARE NOTED WITH DIMINISHED LUNG SOUNDS THROUGHOUT. ABDOMEN IS ROUND, SOFT, AND NON-TENDER WITH NORMAL BOWEL SOUNDS NOTED IN ALL QUADRANTS. GOOD RANGE OF MOTION NOTED TO UPPER AND LOWER EXTREMITIES. TRACE EDEMA NOTED TO BLE. HER VITALS THIS MORNING ARE: 98.0-67-20-95%-118/62. LABS WERE OBTAINED. WBC 4.3, RBC 4.41, HGB 11.2, HCT 33.9, PLT COUNT 193, SODIUM 143, POTASSIUM 4.2, CHLORIDE 106, CARBON DIOXIDE 33.8, BUN 20, CREATININE 0.90, GLUCOSE 152, CALCIUM 8.9, MAGNESIUM 2.2, AST 12, ALT 15, ALK PHOS 128, TOTAL PROTEIN 6.2, ALBUMIN 3.4. A CHEST XRAY WAS OBTAINED AND REVEALED: Unchanged mild cardiomegaly. Mediastinum and hilar regions show no masses or lymphadenopathy. Normal central vascularity. Continued consolidation and atelectasis left base may represent pneumonia. Right lung nichols clear. No definite pleural fluid. No acute bony abnormality. SHE IS CURRENTLY RECEIVING NORMAL SALINE AT 50 ML/HR, PEPCID 20MG IV Q12H, DILAUDID 1MG IV Q4H PRN, SOLU-MEDROL 120 MG IV Q8H, ZOFRAN 8MG IV TID AC, PROTONIX 40MG IV BID, K-DUR 20MEQ DAILY, ZYLOPRIM 1000MG DAILY, ELIQIS 5MG BID, NEURONTIN 300MG TID, NORCO 10/325MG QID PRN, REQUIP 3MG HS, ALECTINIB 150MG HS, AND TRAZODONE 200MG HS. WE SENT THE RESULTS OF HER BRAIN MRI TO (ONCOLOGIST) THIS MORNING. HE RECOMMENDED THAT WE DISCONTINUE THE SOLU-MEDROL AND ADD DECADRON 4MG IV Q8H. WE WILL MAKE THESE CHANGES. WE WILL ALSO ADD LEVAQUIN 500MG IV DAILY, PULMICORT NEBS BID, AND XOPENEX NEBS Q6H. OTHERWISE, WE WILL FOLLOW UP WITH AM LABS AND CONTINUE TO MONITOR. TIME SPENT ON CLINICAL ASSESSMENT, REVIEWING LABS AND IMAGING, DECISION MAKING, AND DOCUMENTATION GREATER THAN 45 MINUTES. - Past Medical Family Social History Past Med/Fam/Surg Hx: No changes since H&P Allergies: Allergies albuterol Allergy (Verified 07/07/22 18:24) ANAPHALEXIS REACTION throat swells up - Review of Systems ROS: No change since H&P - Vital Signs and I&O's Vital Signs: Vital Signs Temperature 98.1 F Temperature 97.6 F Pulse Rate [Left] 51 Pulse Rate [Left] 48 Respiratory Rate 20 Respiratory Rate 20 Blood Pressure [Left Arm] 143/72 Blood Pressure [Left Arm] 156/72 O2 Sat by Pulse Oximetry 98 O2 Sat by Pulse Oximetry 95 Intake and Output: Intake & Output 11/27/22 11/28/22 11/29/22 11/30/22 11:59 11:59 11:59 11:59 Intake Total 1885 1753 / 1753 1144 / 1144 1304 / 1304 Balance 1885 175 / 1753 1144 / 1144 1304 / 1304 - Physical Exam Oriented: Normal Eyes: Normal Ear: Normal Nose: Normal Throat: Normal Respiratory: Generalized, Diminished Cardiovascular: Normal : Normal Auscultation: Bowel Sounds: Normal Palpation: Normal Tenderness: Normal Skin: Normal Musculoskeletal: Back:Lumbar, Tender Psychiatric: Normal Mood Description: Calm Affect: Normal Speech Pattern: Clear, Appropriate - Laboratory and Diagnostics Result Diagrams: 11/29/22 05:25 11/29/22 05:25 Labs: Laboratory WBC 4.3 X10^3/uL (3.6-10.0) 11/29/22 05:25 RBC 4.41 X10^6/uL (3.5-5.4) 11/29/22 05:25 Hgb 11.2 g/dL (12.0-16.0) L 11/29/22 05:25 Hct 33.9 % (36.0-47.0) L 11/29/22 05:25 MCV 76.9 fL (80.0-100.0) L 11/29/22 05:25 MCH 25.3 pg (27.0-34.0) L 11/29/22 05:25 MCHC 32.9 g/dL (33.0-35.0) L 11/29/22 05:25 RDW 23.7 % (11.6-16.5) H 11/29/22 05:25 Plt Count 193 X10^3/uL (150.0-450.0) 11/29/22 05:25 Plt Count Comment Adequate (ADEQUATE) 11/29/22 05:25 MPV 10.6 fL (7.4-11.0) 11/29/22 05:25 Neut % (Auto) 89.5 % (42.0-75.0) H 11/29/22 05:25 Lymph % (Auto) 8.1 % (21.0-51.0) L 11/29/22 05:25 [place] % (Auto) 2.3 % (0.0-13.0) 11/29/22 05:25 Eos % (Auto) 0.0 % (0.9-2.9) L 11/29/22 05:25 Baso % (Auto) 0.1 % (0.2-1.0) L 11/29/22 05:25 Neut # (Auto) 3.8 x10^3/uL (2.2-4.8) 11/29/22 05:25 Lymph # (Auto) 0.3 X10^3/uL (1.3-2.9) L 11/29/22 05:25 [place] # (Auto) 0.1 x10^3/uL (0.3-0.8) L 11/29/22 05:25 Eos # (Auto) 0.0 x10^3/uL (0.0-0.2) 11/29/22 05:25 Baso # (Auto) 0.0 X10^3/uL (0.0-0.1) 11/29/22 05:25 Absolute Nucleated RBC 0.0 /100WBC 11/29/22 05:25 Total Counted 100 11/28/22 05:18 Neutrophils % (Manual) 90 % (39-76) H 11/28/22 05:18 Lymphocytes % (Manual) 8 % (13-43) L 11/28/22 05:18 Monocytes % (Manual) 2 % (4-9) L 11/28/22 05:18 Plt Morphology Comment Normal (NORMAL) 11/29/22 05:25 RBC Morphology Abnormal (NORMAL) A 11/29/22 05:25 Hypochromasia Slight A 11/29/22 05:25 Anisocytosis 2+ A 11/29/22 05:25 Microcytosis Slight A 11/29/22 05:25 Ovalocytes Slight A 11/26/22 05:38 [place] Cells Slight A 11/29/22 05:25 Sodium 143 mmol/L (136-145) 11/29/22 05:25 Corrected Sodium 144 mmol/L (136-145) 11/29/22 05:25 Potassium 4.2 mmol/L (3.5-5.1) 11/29/22 05:25 Chloride 106 mmol/L (98-107) 11/29/22 05:25 Carbon Dioxide 33.8 mmol/L (21-32) H 11/29/22 05:25 BUN 20 mg/dL (7-18) H 11/29/22 05:25 Creatinine 0.90 mg/dL (0.55-1.02) 11/29/22 05:25 Est GFR (MDRD) Af Amer > 60 (>60) 11/29/22 05:25 Est GFR (MDRD) Non-Af > 60 (>60) 11/29/22 05:25 Glucose 152 mg/dL (65-99) H 11/29/22 05:25 POC Glucose (mg/dL) 95 mg/dL (65-99) 11/25/22 21:08 Calcium 8.9 mg/dL (8.5-10.1) 11/29/22 05:25 Corrected Calcium TNP 11/29/22 05:25 Magnesium 2.2 mg/dL (2.0-2.9) 11/29/22 05:25 Total Bilirubin 0.40 mg/dL (0.2-1.0) 11/29/22 05:25 AST 12 Units/L (15-37) L 11/29/22 05:25 ALT 15 Units/L (12-78) 11/29/22 05:25 Alkaline Phosphatase 128 Units/L (46-116) H 11/29/22 05:25 Total Protein 6.2 g/dL (6.4-8.2) L 11/29/22 05:25 Albumin 3.4 g/dL (3.4-5.0) 11/29/22 05:25 Globulin 2.8 g/dL (2.5-4.5) 11/29/22 05:25 Albumin/Globulin Ratio 1.2 Ratio (1.1-2.1) 11/29/22 05:25 Lipase 60 Units/L (73-393) L 11/25/22 17:19 Specimen Type Clean catch urine 11/25/22 16:45 Urine Color Dark yellow (YELLOW) 11/25/22 16:45 Urine Appearance Clear (CLEAR) 11/25/22 16:45 Urine pH 6.5 (5.0 - 8.0) 11/25/22 16:45 Ur Specific [place] 1.020 (1.000-1.030) 11/25/22 16:45 Urine Protein 1+ (NEGATIVE) 11/25/22 16:45 Urine Glucose (UA) Negative (NEGATIVE) 11/25/22 16:45 Urine Ketones Negative (NEGATIVE) 11/25/22 16:45 Urine Blood Negative (NEGATIVE) 11/25/22 16:45 Urine Nitrite Negative (NEGATIVE) 11/25/22 16:45 Urine Bilirubin Negative (NEGATIVE) 11/25/22 16:45 Urine Urobilinogen 1+ (NORMAL) 11/25/22 16:45 Ur Leukocyte Esterase Negative (NEGATIVE) 11/25/22 16:45 Urine RBC 0-2 /HPF (0-3) 11/25/22 16:45 Urine WBC 0-2 /HPF (0-5) 11/25/22 16:45 Ur Squamous Epith Cells Numerous /HPF (NEGATIVE) 11/25/22 16:45 Urine Bacteria 2+ /HPF (NEGATIVE) 11/25/22 16:45 Urine Mucus Many /HPF (NEGATIVE) 11/25/22 16:45 Ur Culture Indicated? No/not indicated 11/25/22 16:45 - Plan (1) Pneumonia Status: Acute Qualifiers: Pneumonia type: due to unspecified organism Laterality: left Lung location: lower lobe of lung Qualified Code(s): J18.9 - Pneumonia, unspecified organism Plan: NORMAL SALINE AT 50 ML/HR, DECADRON 4MG IV Q8H, LEVAQUIN 500MG IV BID, XOPENX NEBS Q6H, PULMICORT NEBS BID, PEPCID 20MG IV Q12H, DILAUDID 1MG IV Q4H PRN, ZOFRAN 8MG IV BEFORE MEALS, PROTONIX 40MG IV BID, K-DUR 20MEQ DAILY, ZYLOPRIM 1000MG DAILY, ELIQIS 5MG BID, NEURONTIN 300MG TID, NORCO 10/325MG QID PRN, REQUIP 3MG HS, ALECTINIB 150MG HS, AND TRAZODONE 200MG HS (2) Nausea & vomiting Status: Acute Qualifiers: Vomiting type: unspecified Qualified Code(s): R11.2 - Nausea with vomiting, unspecified (3) Generalized weakness Status: Acute (4) Headache Status: Acute Qualifiers: Headache type: unspecified Headache chronicity pattern: acute headache Intractability: intractable Qualified Code(s): R51.9 - Headache, unspecified Plan: OBTAIN BRAIN MRI WITH CONTRAST (5) Shortness of breath Status: Acute (6) H/O malignant neoplasm of brain Status: Chronic (7) GERD (gastroesophageal reflux disease) Status: Chronic (8) Restless leg Status: Chronic (9) Anemia Status: Chronic Qualifiers: Anemia type: unspecified type Qualified Code(s): D64.9 - Anemia, unspecified
[2022-11-29] MEDS: DESYREL PO SCH (21:21)
[2022-11-29] MEDS: REQUIP PO SCH (21:22)
[2022-11-29] MEDS: DECADRON INJ IVP SCH (21:23)
[2022-11-30] MEDS: NS 1,000 ML IV 1,000 ML IV SCH ×2 (00:01→15:59)
[2022-11-30] MEDS: CORTISPORIN OTIC SUSP EACH EAR SCH ×3 (05:09→21:41)
[2022-11-30] MEDS: NEURONTIN CAP 300 MG PO SCH ×3 (05:09→21:42)
[2022-11-30] MEDS: DECADRON INJ IVP SCH ×3 (05:09→21:41)
[2022-11-30] MEDS: ZOFRAN INJ 4 MG VIAL IVP SCH ×3 (05:55→15:59)
--- NOTE | 2022-11-30 06:06 | RAD ---
HISTORYSOB Relevant Clinical InformationSTUDYCHEST, 1 VIEWCOMPARISONA 11/29/2022FINDINGSThe trachea is midline. The cardiac silhouette is mildly enlarged.. There is persistent atelectasis or consolidation in the left lung base. The right lung is clear. The bony thorax is unremarkable.IMPRESSIONMild cardiomegalyLeft basilar atelectasis and/or consolidation unchanged from 11/29/2022.Electronically signed by: Dmitry Rojas (Nov 30, 2022 06:05:36)
[2022-11-30] MEDS: XOPENEX 1.25 MG/3 ML NEBULE NEB SCH ×4 (06:12→17:00)
[2022-11-30 06:15] LABS: BASOPHILS % (AUTO) 0.1 % (0.2-1.0); HEMATOCRIT 33.3 % (36.0-47.0); HEMOGLOBIN 10.8 g/dL (12.0-16.0); LYMPHOCYTES # (AUTO) 0.4 X10^3/uL (1.3-2.9); LYMPHOCYTES % (AUTO) 8.7 % (21.0-51.0); MEAN CORPUSCULAR HEMOGLOBIN 25.1 pg (27.0-34.0); MEAN CORPUSCULAR HGB CONC 32.4 g/dL (33.0-35.0); MEAN CORPUSCULAR VOLUME 77.5 fL (80.0-100.0); MEAN PLATELET VOLUME 10.2 fL (7.4-11.0); MONOCYTES # (AUTO) 0.3 x10^3/uL (0.3-0.8); NEUTROPHILS # (AUTO) 3.4 x10^3/uL (2.2-4.8); NEUTROPHILS % (AUTO) 83.2 % (42.0-75.0); PLATELET COUNT 178 X10^3/uL (150.0-450.0); RED CELL DISTRIBUTION WIDTH 23.8 % (11.6-16.5); WHITE BLOOD COUNT 4.1 X10^3/uL (3.6-10.0)
[2022-11-30 06:18] LABS: BLOOD UREA NITROGEN 21 mg/dL (7-18); CALCIUM 8.8 mg/dL (8.5-10.1); CARBON DIOXIDE 33.3 mmol/L (21-32); CHLORIDE 105 mmol/L (98-107); COR NA(FOR HYPERGLY) 143 mmol/L (136-145); CREATININE 0.89 mg/dL (0.55-1.02); GLUCOSE 120 mg/dL (65-99); SODIUM 143 mmol/L (136-145); eGFR NON BLACK RACES > 60 (>60)
[2022-11-30 06:48] LABS: ALANINE AMINOTRANSFERASE 18 Units/L (12-78); ALBUMIN 3.2 g/dL (3.4-5.0); ALKALINE PHOSPHATASE 109 Units/L (46-116); ASPARTATE AMINO TRANSFERASE 12 Units/L (15-37); COR CA(FOR HYPOALB) 9.4 mg/dL (8.5-10.1); TOTAL PROTEIN 5.8 g/dL (6.4-8.2)
[2022-11-30 06:59] LABS: ANISOCYTOSIS 2+; HYPOCHROMASIA SLIGHT; MICROCYTOSIS SLIGHT; PLATELET MORPHOLOGY COMMENT NORMAL (NORMAL)
[2022-11-30 07:00] LABS: BURR CELLS 1+
[2022-11-30] MEDS: ELIQUIS PO SCH ×2 (08:36→20:40)
[2022-11-30] MEDS: PEPCID 20 MG VIAL 20 MG in NS 50 ML IV 50 ML IV SCH ×2 (08:36→20:40)
[2022-11-30] MEDS: PROTONIX INJ 40 MG VIAL IVP SCH ×2 (08:36→20:40)
[2022-11-30] MEDS: ZYLOPRIM PO SCH (08:36)
[2022-11-30] MEDS: LEVAQUIN PREMIX IV 500 MG 500 MG/100 ML BAG IV SCH (08:36)
[2022-11-30] MEDS: PULMICORT NEB TX 0.5 MG NEB SCH ×2 (08:44→21:20)
--- NOTE | 2022-11-30 11:06 | PCM.PROG ---
Progress Note - Progress Note for Day of Date of Exam: 11/30/22 - Subjective Subjective: IS CURRENTLY OBSERVATION STATUS FOR TREATMENT OF PNEUMONIA, INTRACTABLE NAUSEA AND VOMITING, GENERALIZED WEAKNESS, POSTERIOR HEADACHE, AND SHORTNESS OF BREATH. SHE HAS A HISTORY OF MALIGNANT NEOPLASM OF THE BRAIN, GERD, RESTLESS LEGS, AND ANEMIA. TODAY, SHE IS ALERT AND ORIENTED, L VIDYA IN BED ON MORNING ROUNDS. SHE REPORTS IMPROVEMENT IN NAUSEA AND HEADACHE. SHE ADMITS TO ONLY HAVING A MILD HEADACHE AT TIMES. SHE CONTINUES WITH GENERALIZED WEAKNESS AND INTERMITTENT SHORTNESS OF BREATH. ADDITIONALLY, SHE DENIES HAVING A BOWEL MOVEMENT IN SEVERAL DAYS. ON EXAMINATION, HEART IS REGULAR IN RATE AND RHYTHM. BILATERAL LUNGS ARE NOTED WITH DIMINISHED LUNG SOUNDS THROUGHOUT. ABDOMEN IS ROUND, SOFT, AND NON-TENDER WITH HYPERACTIVE BOWEL SOUNDS NOTED IN ALL QUADRANTS. WEAKNESS OF LOWER EXTREMITIES NOTED WITH TRACE EDEMA NOTED TO BLE. HER VITALS THIS MORNING ARE: 98.1-74-18-96%-143/68. LABS WERE OBTAINED. WBC 4.1, RBC 4.30, HGB 10.8, HCT 33.3, PLT COUNT 178, SODIUM 143, POTASSIUM 4.0, CHLORIDE 105, CARBON DIOXIDE 33.3, BUN 21, CREATININE 0.89, GLUCOSE 120, CALCIUM 8.8, AST 12, ALT 18, ALK PHOS 109, TOTAL PROTEIN 5.8, ALBUMIN 3.2. A CHEST XRAY WAS OBTAINED AND REVEALED: Mild cardiomegaly. Left basilar atelectasis and/or consolidation unchanged from 11/29/2022. BRAIN MRI THAT WAS OBTAINED ON 11/26/22 SUGGESTED WORSENING OF DISEASE (MALIGNANT BRAIN TUMOR). WE CONSULTED YESTERDAY, WHO MADE SOME MEDICATION RECOMMENDATIONS. SHE IS CURRENTLY RECEIVING NORMAL SALINE AT 50 ML/HR, LEVAQUIN 500MG IV DAILY, PULMICORT NEBS BID, AND XOPENEX NEBS Q6H, PEPCID 20MG IV Q12H, DILAUDID 1MG IV Q4H PRN, DECADRON 4MG IV Q8H, ZOFRAN 8MG IV TID AC, PROTONIX 40MG IV BID, K-DUR 20MEQ DAILY, ZYLOPRIM 1000MG DAILY, ELIQIS 5MG BID, NEURONTIN 300MG TID, NORCO 10/325MG QID PRN, REQUIP 3MG HS, ALECTINIB 150MG HS, AND TRAZODONE 200MG HS. WE WILL ADD COLACE 100MG BID, MILK OF MAGNESIA 15ML QID, AND MIRALAX 17G PO DAILY. WE WILL HAVE PHYSICAL THERAPY WORK WITH HER TODAY. WE WILL CHANGE HER TO INPATIENT STATUS. OTHERWISE, WE WILL FOLLOW UP WITH AM LABS AND CONTINUE TO MONITOR. TIME SPENT ON CLINICAL ASSESSMENT, REVIEWING LABS AND IMAGING, DECISION MAKING, AND DOCUMENTATION GREATER THAN 45 MINUTES. - Past Medical Family Social History Past Med/Fam/Surg Hx: No changes since H&P Allergies: Allergies albuterol Allergy (Verified 07/07/22 18:24) ANAPHALEXIS REACTION throat swells up - Review of Systems ROS: No change since H&P - Vital Signs and I&O's Vital Signs: Vital Signs Temperature 98.1 F Temperature 98 F Pulse Rate [Left] 74 Pulse Rate [Left] 51 Pulse Rate 70 Pulse Rate 67 Respiratory Rate 18 Respiratory Rate 20 Blood Pressure [Left Arm] 143/68 Blood Pressure [Left Arm] 141/67 O2 Sat by Pulse Oximetry 98 O2 Sat by Pulse Oximetry 96 O2 Sat by Pulse Oximetry 98 O2 Sat by Pulse Oximetry 96 Intake and Output: Intake & Output 11/27/22 11/28/22 11/29/22 11/30/22 11:59 11:59 11:59 11:59 Intake Total 1885 / 1886 1753 / 1753 1144 / 1144 2787 / 2787 Output Total 520 / 520 Balance 188 / 1886 1753 / 1753 1144 / 1144 2267 / 2267 - Physical Exam Oriented: Normal Eyes: Normal Ear: Normal Nose: Normal Throat: Normal Respiratory: Generalized, Diminished Cardiovascular: Normal : Normal Auscultation: Bowel Sounds: Normal Palpation: Normal Tenderness: Normal Skin: Normal Musculoskeletal: Back:Lumbar, Tender Psychiatric: Normal Mood Description: Calm Affect: Normal Speech Pattern: Clear, Appropriate - Laboratory and Diagnostics Result Diagrams: 11/30/22 05:14 11/30/22 05:14 Labs: Laboratory WBC 4.1 X10^3/uL (3.6-10.0) 11/30/22 05:14 RBC 4.30 X10^6/uL (3.5-5.4) 11/30/22 05:14 Hgb 10.8 g/dL (12.0-16.0) L 11/30/22 05:14 Hct 33.3 % (36.0-47.0) L 11/30/22 05:14 MCV 77.5 fL (80.0-100.0) L 11/30/22 05:14 MCH 25.1 pg (27.0-34.0) L 11/30/22 05:14 MCHC 32.4 g/dL (33.0-35.0) L 11/30/22 05:14 RDW 23.8 % (11.6-16.5) H 11/30/22 05:14 Plt Count 178 X10^3/uL (150.0-450.0) 11/30/22 05:14 Plt Count Comment Adequate (ADEQUATE) 11/30/22 05:14 MPV 10.2 fL (7.4-11.0) 11/30/22 05:14 Neut % (Auto) 83.2 % (42.0-75.0) H 11/30/22 05:14 Lymph % (Auto) 8.7 % (21.0-51.0) L 11/30/22 05:14 [place] % (Auto) 8.0 % (0.0-13.0) 11/30/22 05:14 Eos % (Auto) 0.0 % (0.9-2.9) L 11/30/22 05:14 Baso % (Auto) 0.1 % (0.2-1.0) L 11/30/22 05:14 Neut # (Auto) 3.4 x10^3/uL (2.2-4.8) 11/30/22 05:14 Lymph # (Auto) 0.4 X10^3/uL (1.3-2.9) L 11/30/22 05:14 [place] # (Auto) 0.3 x10^3/uL (0.3-0.8) 11/30/22 05:14 Eos # (Auto) 0.0 x10^3/uL (0.0-0.2) 11/30/22 05:14 Baso # (Auto) 0.0 X10^3/uL (0.0-0.1) 11/30/22 05:14 Absolute Nucleated RBC 0.0 /100WBC 11/30/22 05:14 Total Counted 100 11/28/22 05:18 Neutrophils % (Manual) 90 % (39-76) H 11/28/22 05:18 Lymphocytes % (Manual) 8 % (13-43) L 11/28/22 05:18 Monocytes % (Manual) 2 % (4-9) L 11/28/22 05:18 Plt Morphology Comment Normal (NORMAL) 11/30/22 05:14 RBC Morphology Abnormal (NORMAL) A 11/30/22 05:14 Hypochromasia Slight A 11/30/22 05:14 Anisocytosis 2+ A 11/30/22 05:14 Microcytosis Slight A 11/30/22 05:14 Ovalocytes Slight A 11/26/22 05:38 [place] Cells 1+ A 11/30/22 05:14 Sodium 143 mmol/L (136-145) 11/30/22 05:14 Corrected Sodium 143 mmol/L (136-145) 11/30/22 05:14 Potassium 4.0 mmol/L (3.5-5.1) 11/30/22 05:14 Chloride 105 mmol/L (98-107) 11/30/22 05:14 Carbon Dioxide 33.3 mmol/L (21-32) H 11/30/22 05:14 BUN 21 mg/dL (7-18) H 11/30/22 05:14 Creatinine 0.89 mg/dL (0.55-1.02) 11/30/22 05:14 Est GFR (MDRD) Af Amer > 60 (>60) 11/30/22 05:14 Est GFR (MDRD) Non-Af > 60 (>60) 11/30/22 05:14 Glucose 120 mg/dL (65-99) H 11/30/22 05:14 POC Glucose (mg/dL) 95 mg/dL (65-99) 11/25/22 21:08 Calcium 8.8 mg/dL (8.5-10.1) 11/30/22 05:14 Corrected Calcium 9.4 mg/dL (8.5-10.1) 11/30/22 05:14 Magnesium 2.2 mg/dL (2.0-2.9) 11/29/22 05:25 Total Bilirubin 0.30 mg/dL (0.2-1.0) 11/30/22 05:14 AST 12 Units/L (15-37) L 11/30/22 05:14 ALT 18 Units/L (12-78) 11/30/22 05:14 Alkaline Phosphatase 109 Units/L (46-116) 11/30/22 05:14 Total Protein 5.8 g/dL (6.4-8.2) L 11/30/22 05:14 Albumin 3.2 g/dL (3.4-5.0) L 11/30/22 05:14 Globulin 2.6 g/dL (2.5-4.5) 11/30/22 05:14 Albumin/Globulin Ratio 1.2 Ratio (1.1-2.1) 11/30/22 05:14 Lipase 60 Units/L (73-393) L 11/25/22 17:19 Specimen Type Clean catch urine 11/25/22 16:45 Urine Color Dark yellow (YELLOW) 11/25/22 16:45 Urine Appearance Clear (CLEAR) 11/25/22 16:45 Urine pH 6.5 (5.0 - 8.0) 11/25/22 16:45 Ur Specific [place] 1.020 (1.000-1.030) 11/25/22 16:45 Urine Protein 1+ (NEGATIVE) 11/25/22 16:45 Urine Glucose (UA) Negative (NEGATIVE) 11/25/22 16:45 Urine Ketones Negative (NEGATIVE) 11/25/22 16:45 Urine Blood Negative (NEGATIVE) 11/25/22 16:45 Urine Nitrite Negative (NEGATIVE) 11/25/22 16:45 Urine Bilirubin Negative (NEGATIVE) 11/25/22 16:45 Urine Urobilinogen 1+ (NORMAL) 11/25/22 16:45 Ur Leukocyte Esterase Negative (NEGATIVE) 11/25/22 16:45 Urine RBC 0-2 /HPF (0-3) 11/25/22 16:45 Urine WBC 0-2 /HPF (0-5) 11/25/22 16:45 Ur Squamous Epith Cells Numerous /HPF (NEGATIVE) 11/25/22 16:45 Urine Bacteria 2+ /HPF (NEGATIVE) 11/25/22 16:45 Urine Mucus Many /HPF (NEGATIVE) 11/25/22 16:45 Ur Culture Indicated? No/not indicated 11/25/22 16:45 - Plan (1) Pneumonia Status: Acute Qualifiers: Pneumonia type: due to unspecified organism Laterality: left Lung location: lower lobe of lung Qualified Code(s): J18.9 - Pneumonia, unspecified organism Plan: NORMAL SALINE AT 50 ML/HR, DECADRON 4MG IV Q8H, LEVAQUIN 500MG IV BID, XOPENX NEBS Q6H, PULMICORT NEBS BID, PEPCID 20MG IV Q12H, DILAUDID 1MG IV Q4H PRN, ZOFRAN 8MG IV BEFORE MEALS, PROTONIX 40MG IV BID, K-DUR 20MEQ DAILY, ZYLOPRIM 1000MG DAILY, ELIQIS 5MG BID, NEURONTIN 300MG TID, NORCO 10/325MG QID PRN, REQUIP 3MG HS, ALECTINIB 150MG HS, AND TRAZODONE 200MG HS (2) Nausea & vomiting Status: Acute Qualifiers: Vomiting type: unspecified Qualified Code(s): R11.2 - Nausea with vomiting, unspecified Plan: NORMAL SALINE AT 50 ML/HR, SOLU-MEDROL 125MG IV Q8H, PEPCID 20MG IV Q12H, DILAUDID 1MG IV Q4H PRN, ZOFRAN 8MG IV BEFORE MEALS, PROTONIX 40MG IV BID, K-DUR 20MEQ DAILY, ZYLOPRIM 1000MG DAILY, ELIQIS 5MG BID, NEURONTIN 300MG TID, NORCO 1 0/325MG QID PRN, REQUIP 3MG HS, ALECTINIB 150MG HS, AND TRAZODONE 200MG HS (3) Generalized weakness Status: Acute (4) Headache Status: Acute Qualifiers: Headache type: unspecified Headache chronicity pattern: acute headache Intractability: intractable Qualified Code(s): R51.9 - Headache, unspecified Plan: OBTAIN BRAIN MRI WITH CONTRAST (5) Shortness of breath Status: Acute (6) Constipation Status: Acute Qualifiers: Constipation type: unspecified constipation type Qualified Code(s): K59.00 - Constipation, unspecified Plan: COLACE 100MG BID, MILK OF MAGNESIA 15ML QID, MIRALAX 17G PO DAILY (7) H/O malignant neoplasm of brain Status: Chronic (8) GERD (gastroesophageal reflux disease) Status: Chronic (9) Restless leg Status: Chronic (10) Anemia Status: Chronic Qualifiers: Anemia type: unspecified type Qualified Code(s): D64.9 - Anemia, unspecified
[2022-11-30] MEDS: MIRALAX POWDER (1 DOSE 17 G) PO SCH (12:38)
[2022-11-30] MEDS: COLACE CAP 100 MG PO SCH ×2 (12:38→21:41)
[2022-11-30] MEDS: MILK OF MAGNESIA PO SCH ×3 (12:39→21:41)
[2022-11-30] MEDS: DESYREL PO SCH (20:39)
[2022-11-30] MEDS: REQUIP PO SCH (20:40)
[2022-12-01] MEDS: XOPENEX 1.25 MG/3 ML NEBULE NEB SCH ×4 (00:30→17:07)
[2022-12-01] MEDS: NS 1,000 ML IV 1,000 ML IV SCH (02:45)
[2022-12-01] MEDS: DECADRON INJ IVP SCH ×3 (05:25→21:18)
[2022-12-01] MEDS: NEURONTIN CAP 300 MG PO SCH ×3 (05:25→21:40)
[2022-12-01] MEDS: CORTISPORIN OTIC SUSP EACH EAR SCH ×3 (05:25→21:35)
[2022-12-01] MEDS: ZOFRAN INJ 4 MG VIAL IVP SCH ×3 (05:30→15:59)
--- NOTE | 2022-12-01 05:40 | RAD ---
HISTORYSOB Relevant Clinical InformationSTUDYCHEST, 1 [id number] trachea is midline. The cardiac silhouette is mildly enlarged.. The lungs are clear without focal infiltrate or effusion. The bony thorax is unremarkable.IMPRESSIONMild cardiomegalyNo active cardiopulmonary disease.Electronically signed by: Dmitry Rojas (Dec 01, 2022 05:38:38)
[2022-12-01 06:31] LABS: BLOOD UREA NITROGEN 21 mg/dL (7-18); CALCIUM 8.8 mg/dL (8.5-10.1); CARBON DIOXIDE 30.8 mmol/L (21-32); CHLORIDE 106 mmol/L (98-107); COR NA(FOR HYPERGLY) 143 mmol/L (136-145); GLUCOSE 135 mg/dL (65-99); POTASSIUM 4.3 mmol/L (3.5-5.1); SODIUM 142 mmol/L (136-145); eGFR NON BLACK RACES > 60 (>60)
[2022-12-01 06:36] LABS: BASOPHILS % (AUTO) 0 % (0.2-1.0); HEMATOCRIT 34.2 % (36.0-47.0); HEMOGLOBIN 11.1 g/dL (12.0-16.0); LYMPHOCYTES # (AUTO) 0.4 X10^3/uL (1.3-2.9); LYMPHOCYTES % (AUTO) 8.3 % (21.0-51.0); MEAN CORPUSCULAR HEMOGLOBIN 25.5 pg (27.0-34.0); MEAN CORPUSCULAR HGB CONC 32.3 g/dL (33.0-35.0); MEAN CORPUSCULAR VOLUME 78.9 fL (80.0-100.0); MEAN PLATELET VOLUME 10.1 fL (7.4-11.0); MONOCYTES # (AUTO) 0.3 x10^3/uL (0.3-0.8); MONOCYTES % (AUTO) 7.4 % (0.0-13.0); NEUTROPHILS # (AUTO) 3.6 x10^3/uL (2.2-4.8); NEUTROPHILS % (AUTO) 84.3 % (42.0-75.0); PLATELET COUNT 202 X10^3/uL (150.0-450.0); RED BLOOD COUNT 4.34 X10^6/uL (3.5-5.4); RED CELL DISTRIBUTION WIDTH 23.8 % (11.6-16.5); WHITE BLOOD COUNT 4.3 X10^3/uL (3.6-10.0)
[2022-12-01 06:50] LABS: ALANINE AMINOTRANSFERASE 16 Units/L (12-78); ALBUMIN 3.2 g/dL (3.4-5.0); ALKALINE PHOSPHATASE 106 Units/L (46-116); ASPARTATE AMINO TRANSFERASE 12 Units/L (15-37); COR CA(FOR HYPOALB) 9.4 mg/dL (8.5-10.1); TOTAL PROTEIN 5.6 g/dL (6.4-8.2)
[2022-12-01 07:24] LABS: ANISOCYTOSIS 2+; BURR CELLS 1+; HYPOCHROMASIA SLIGHT; MICROCYTOSIS SLIGHT; PLATELET MORPHOLOGY COMMENT NORMAL (NORMAL)
[2022-12-01] MEDS: LEVAQUIN PREMIX IV 500 MG 500 MG/100 ML BAG IV SCH (08:30)
[2022-12-01] MEDS: ZYLOPRIM PO SCH (08:30)
[2022-12-01] MEDS: PROTONIX INJ 40 MG VIAL IVP SCH ×2 (08:30→21:20)
[2022-12-01] MEDS: MILK OF MAGNESIA PO SCH ×4 (08:30→21:19)
[2022-12-01] MEDS: COLACE CAP 100 MG PO SCH ×3 (08:30→21:17)
[2022-12-01] MEDS: PEPCID 20 MG VIAL 20 MG in NS 50 ML IV 50 ML IV SCH ×2 (08:30→21:19)
[2022-12-01] MEDS: ELIQUIS PO SCH ×2 (08:30→21:18)
[2022-12-01] MEDS: MIRALAX POWDER (1 DOSE 17 G) PO SCH (08:31)
[2022-12-01] MEDS: PULMICORT NEB TX 0.5 MG NEB SCH ×2 (09:05→21:01)
--- NOTE | 2022-12-01 12:04 | PCM.PROG ---
Progress Note - Progress Note for Day of Date of Exam: 12/01/22 - Subjective Subjective: IS CURRENTLY INPATIENT STATUS FOR TREATMENT OF PNEUMONIA, INTRACTABLE NAUSEA AND VOMITING, GENERALIZED WEAKNESS, POSTERIOR HEADACHE, AND SHORTNESS OF BREATH. SHE HAS A HISTORY OF MALIGNANT NEOPLASM OF THE BRAIN, GERD, RESTLESS LEGS, AND ANEMIA. TODAY, SHE IS ALERT AND ORIENTED, LYING IN BED ON MORNING ROUNDS. SHE REPORTS IMPROVEMENT IN NAUSEA AND HEADACHE. SHE ADMITS TO ONLY HAVING A MILD HEADACHE AT TIMES. SHE CONTINUES WITH GENERALIZED WEAKNESS AND INTERMITTENT SHORTNESS OF BREATH. ADDITIONALLY, SHE DENIES HAVING A BOWEL MOVEMENT IN SEVERAL DAYS. ON EXAMINATION, HEART IS REGULAR IN RATE AND RHYTHM. BILATERAL LUNGS ARE NOTED WITH DIMINISHED LUNG SOUNDS THROUGHOUT. ABDOMEN IS ROUND, SOFT, AND NON-TENDER WITH HYPERACTIVE BOWEL SOUNDS NOTED IN ALL QUADRANTS. WEAKNESS OF LOWER EXTREMITIES NOTED WITH TRACE EDEMA NOTED TO BLE. HER VITALS THIS MORNING ARE: 98.6-79-18-99%-148/69. LABS WERE OBTAINED. WBC 4.3, RBC 4.34, HGB 11.1, HCT 34.2, PLT COUNT 202, SODIUM 142, POTASSIUM 4.3, CHLORIDE 106, BUN 21, CREATININE 1.00, GLUCOSE 135, CALCIUM 8.8, AST 12, ALT 16, ALK PHOS 106, TOTAL PROTEIN 5.6, ALBUMIN 3.2. A CHEST XRAY WAS OBTAINED AND REVEALED: Mild cardiomegaly. No active cardiopulmonary disease. BRAIN MRI THAT WAS OBTAINED ON 11/26/22 SUGGESTED WORSENING OF DISEASE (MALIGNANT BRAIN TUMOR). WE CONSULTED YESTERDAY, WHO MADE SOME MEDICATION RECOMMENDATIONS. SHE IS CURRENTLY RECEIVING NORMAL SALINE AT 50 ML/HR, LEVAQUIN 500MG IV DAILY, PULMICORT NEBS BID, AND XOPENEX NEBS Q6H, PEPCID 20MG IV Q12H, DILAUDID 1MG IV Q4H PRN, DECADRON 4MG IV Q8H, ZOFRAN 8MG IV TID AC, PROTONIX 40MG IV BID, COLACE, MILK OF MAGNESIA, K-DUR 20MEQ DAILY, ZYLOPRIM 1000MG DAILY, ELIQIS 5MG BID, NEURONTIN 300MG TID, NORCO 10/325MG QID PRN, REQUIP 3MG HS, ALECTINIB 150MG HS, AND TRAZODONE 200MG HS. WE WILL HAVE PHYSICAL THERAPY WORK WITH HER TODAY. OTHERWISE, WE WILL FOLLOW UP WITH AM LABS AND CONTINUE TO MONITOR. TIME SPENT ON CLINICAL ASSESSMENT, REVIEWING LABS AND IMAGING, DECISION MAKING, AND DOCUMENTATION GREATER THAN 45 MINUTES. - Past Medical Family Social History Past Med/Fam/Surg Hx: No changes since H&P Allergies: Allergies albuterol Allergy (Verified 07/07/22 18:24) ANAPHALEXIS REACTION throat swells up - Review of Systems ROS: No change since H&P - Vital Signs and I&O's Vital Signs: Vital Signs Temperature 98.6 F Pulse Rate [Left] 79 Pulse Rate 71 Respiratory Rate 18 Blood Pressure [Left Arm] 148/69 O2 Sat by Pulse Oximetry 97 O2 Sat by Pulse Oximetry 99 Intake and Output: Intake & Output 11/29/22 11/30/22 12/01/22 12/02/22 11:59 11:59 11:59 11:59 Intake Total 1144 / 1144 2787 / 2787 2728 / 2728 Output Total 520 / 520 Balance 1144 / 1144 2267 / 2267 2728 / 2728 - Physical Exam Oriented: Normal Eyes: Normal Ear: Normal Nose: Normal Throat: Normal Respiratory: Generalized, Diminished Cardiovascular: Normal : Normal Auscultation: Bowel Sounds: Normal Palpation: Normal Tenderness: Normal Skin: Normal Musculoskeletal: Back:Lumbar, Tender Psychiatric: Normal Mood Description: Calm Affect: Normal Speech Pattern: Clear, Appropriate - Laboratory and Diagnostics Result Diagrams: 12/01/22 05:33 12/01/22 05:33 Labs: Laboratory WBC 4.3 X10^3/uL (3.6-10.0) 12/01/22 05:33 RBC 4.34 X10^6/uL (3.5-5.4) 12/01/22 05:33 Hgb 11.1 g/dL (12.0-16.0) L 12/01/22 05:33 Hct 34.2 % (36.0-47.0) L 12/01/22 05:33 MCV 78.9 fL (80.0-100.0) L 12/01/22 05:33 MCH 25.5 pg (27.0-34.0) L 12/01/22 05:33 MCHC 32.3 g/dL (33.0-35.0) L 12/01/22 05:33 RDW 23.8 % (11.6-16.5) H 12/01/22 05:33 Plt Count 202 X10^3/uL (150.0-450.0) 12/01/22 05:33 Plt Count Comment Adequate (ADEQUATE) 12/01/22 05:33 MPV 10.1 fL (7.4-11.0) 12/01/22 05:33 Neut % (Auto) 84.3 % (42.0-75.0) H 12/01/22 05:33 Lymph % (Auto) 8.3 % (21.0-51.0) L 12/01/22 05:33 [place] % (Auto) 7.4 % (0.0-13.0) 12/01/22 05:33 Eos % (Auto) 0.0 % (0.9-2.9) L 12/01/22 05:33 Baso % (Auto) 0 % (0.2-1.0) L 12/01/22 05:33 Neut # (Auto) 3.6 x10^3/uL (2.2-4.8) 12/01/22 05:33 Lymph # (Auto) 0.4 X10^3/uL (1.3-2.9) L 12/01/22 05:33 [place] # (Auto) 0.3 x10^3/uL (0.3-0.8) 12/01/22 05:33 Eos # (Auto) 0.0 x10^3/uL (0.0-0.2) 12/01/22 05:33 Baso # (Auto) 0.0 X10^3/uL (0.0-0.1) 12/01/22 05:33 Absolute Nucleated RBC 0.0 /100WBC 12/01/22 05:33 Total Counted 100 11/28/22 05:18 Neutrophils % (Manual) 90 % (39-76) H 11/28/22 05:18 Lymphocytes % (Manual) 8 % (13-43) L 11/28/22 05:18 Monocytes % (Manual) 2 % (4-9) L 11/28/22 05:18 Plt Morphology Comment Normal (NORMAL) 12/01/22 05:33 RBC Morphology Abnormal (NORMAL) A 12/01/22 05:33 Hypochromasia Slight A 12/01/22 05:33 Anisocytosis 2+ A 12/01/22 05:33 Microcytosis Slight A 12/01/22 05:33 Ovalocytes Slight A 11/26/22 05:38 [place]dal[place] Cells 1+ A 12/01/22 05:33 Sodium 142 mmol/L (136-145) 12/01/22 05:33 Corrected Sodium 143 mmol/L (136-145) 12/01/22 05:33 Potassium 4.3 mmol/L (3.5-5.1) 12/01/22 05:33 Chloride 106 mmol/L (98-107) 12/01/22 05:33 Carbon Dioxide 30.8 mmol/L (21-32) 12/01/22 05:33 BUN 21 mg/dL (7-18) H 12/01/22 05:33 Creatinine 1.00 mg/dL (0.55-1.02) 12/01/22 05:33 Est GFR (MDRD) Af Amer > 60 (>60) 12/01/22 05:33 Est GFR (MDRD) Non-Af > 60 (>60) 12/01/22 05:33 Glucose 135 mg/dL (65-99) H 12/01/22 05:33 POC Glucose (mg/dL) 95 mg/dL (65-99) 11/25/22 21:08 Calcium 8.8 mg/dL (8.5-10.1) 12/01/22 05:33 Corrected Calcium 9.4 mg/dL (8.5-10.1) 12/01/22 05:33 Magnesium 2.2 mg/dL (2.0-2.9) 11/29/22 05:25 Total Bilirubin 0.30 mg/dL (0.2-1.0) 12/01/22 05:33 AST 12 Units/L (15-37) L 12/01/22 05:33 ALT 16 Units/L (12-78) 12/01/22 05:33 Alkaline Phosphatase 106 Units/L (46-116) 12/01/22 05:33 Total Protein 5.6 g/dL (6.4-8.2) L 12/01/22 05:33 Albumin 3.2 g/dL (3.4-5.0) L 12/01/22 05:33 Globulin 2.4 g/dL (2.5-4.5) L 12/01/22 05:33 Albumin/Globulin Ratio 1.3 Ratio (1.1-2.1) 12/01/22 05:33 Lipase 60 Units/L (73-393) L 11/25/22 17:19 Specimen Type Clean catch urine 11/25/22 16:45 Urine Color Dark yellow (YELLOW) 11/25/22 16:45 Urine Appearance Clear (CLEAR) 11/25/22 16:45 Urine pH 6.5 (5.0 - 8.0) 11/25/22 16:45 Ur Specific [place] 1.020 (1.000-1.030) 11/25/22 16:45 Urine Protein 1+ (NEGATIVE) 11/25/22 16:45 Urine Glucose (UA) Negative (NEGATIVE) 11/25/22 16:45 Urine Ketones Negative (NEGATIVE) 11/25/22 16:45 Urine Blood Negative (NEGATIVE) 11/25/22 16:45 Urine Nitrite Negative (NEGATIVE) 11/25/22 16:45 Urine Bilirubin Negative (NEGATIVE) 11/25/22 16:45 Urine Urobilinogen 1+ (NORMAL) 11/25/22 16:45 Ur Leukocyte Esterase Negative (NEGATIVE) 11/25/22 16:45 Urine RBC 0-2 /HPF (0-3) 11/25/22 16:45 Urine WBC 0-2 /HPF (0-5) 11/25/22 16:45 Ur Squamous Epith Cells Numerous /HPF (NEGATIVE) 11/25/22 16:45 Urine Bacteria 2+ /HPF (NEGATIVE) 11/25/22 16:45 Urine Mucus Many /HPF (NEGATIVE) 11/25/22 16:45 Ur Culture Indicated? No/not indicated 11/25/22 16:45 Resp Viral Panel (PCR) See scanned report 11/29/22 07:20 - Plan (1) Pneumonia Status: Acute Qualifiers: Pneumonia type: due to unspecified organism Laterality: left Lung location: lower lobe of lung Qualified Code(s): J18.9 - Pneumonia, unspecified organism Plan: NORMAL SALINE AT 50 ML/HR, DECADRON 4MG IV Q8H, LEVAQUIN 500MG IV BID, XOPENX NEBS Q6H, PULMICORT NEBS BID, PEPCID 20MG IV Q12H, DILAUDID 1MG IV Q4H PRN, ZOFRAN 8MG IV BEFORE MEALS, PROTONIX 40MG IV BID, K-DUR 20MEQ DAILY, ZYLOPRIM 1000MG DAILY, ELIQIS 5MG BID, NEURONTIN 300MG TID, NORCO 10/325MG QID PRN, REQUIP 3MG HS, ALECTINIB 150MG HS, AND TRAZODONE 200MG HS (2) Nausea & vomiting Status: Acute Qualifiers: Vomiting type: unspecified Qualified Code(s): R11.2 - Nausea with vomiting, unspecified (3) Generalized weakness Status: Acute (4) Headache Status: Acute Qualifiers: Headache type: unspecified Headache chronicity pattern: acute headache Intractability: intractable Qualified Code(s): R51.9 - Headache, unspecified (5) Shortness of breath Status: Acute (6) Constipation Status: Acute Qualifiers: Constipation type: unspecified constipation type Qualified Code(s): K59.00 - Constipation, unspecified Plan: COLACE 100MG BID, MILK OF MAGNESIA 15ML QID, MIRALAX 17G PO DAILY (7) H/O malignant neoplasm of brain Status: Chronic (8) GERD (gastroesophageal reflux disease) Status: Chronic (9) Restless leg Status: Chronic (10) Anemia Status: Chronic Qualifiers: Anemia type: unspecified type Qualified Code(s): D64.9 - Anemia, unspecified
[2022-12-01] MEDS: DESYREL PO SCH (21:18)
[2022-12-01] MEDS: REQUIP PO SCH (21:19)
[2022-12-01] MEDS ORDERED: NS 50 ML IV 50 ML IV ONE (22:01)
[2022-12-02] MEDS: XOPENEX 1.25 MG/3 ML NEBULE NEB SCH ×4 (00:45→16:29)
[2022-12-02] MEDS: DECADRON INJ IVP SCH ×3 (06:19→21:22)
[2022-12-02] MEDS: NEURONTIN CAP 300 MG PO SCH ×3 (06:19→21:22)
[2022-12-02] MEDS: CORTISPORIN OTIC SUSP EACH EAR SCH ×3 (06:45→21:22)
[2022-12-02 07:01] LABS: BASOPHILS % (AUTO) 0.1 % (0.2-1.0); HEMATOCRIT 32.6 % (36.0-47.0); HEMOGLOBIN 10.6 g/dL (12.0-16.0); LYMPHOCYTES # (AUTO) 0.3 X10^3/uL (1.3-2.9); LYMPHOCYTES % (AUTO) 6.8 % (21.0-51.0); MEAN CORPUSCULAR HEMOGLOBIN 25.5 pg (27.0-34.0); MEAN CORPUSCULAR HGB CONC 32.5 g/dL (33.0-35.0); MEAN CORPUSCULAR VOLUME 78.2 fL (80.0-100.0); MEAN PLATELET VOLUME 10.7 fL (7.4-11.0); MONOCYTES # (AUTO) 0.3 x10^3/uL (0.3-0.8); MONOCYTES % (AUTO) 6.2 % (0.0-13.0); NEUTROPHILS % (AUTO) 86.9 % (42.0-75.0); PLATELET COUNT 179 X10^3/uL (150.0-450.0); RED BLOOD COUNT 4.17 X10^6/uL (3.5-5.4); RED CELL DISTRIBUTION WIDTH 23.7 % (11.6-16.5); WHITE BLOOD COUNT 4.6 X10^3/uL (3.6-10.0)
[2022-12-02] MEDS: ZOFRAN INJ 4 MG VIAL IVP SCH ×3 (07:02→17:17)
[2022-12-02 07:07] LABS: ALANINE AMINOTRANSFERASE 16 Units/L (12-78); ALKALINE PHOSPHATASE 93 Units/L (46-116); ASPARTATE AMINO TRANSFERASE 11 Units/L (15-37); BLOOD UREA NITROGEN 22 mg/dL (7-18); CALCIUM 8.2 mg/dL (8.5-10.1); CARBON DIOXIDE 30.2 mmol/L (21-32); CHLORIDE 102 mmol/L (98-107); COR NA(FOR HYPERGLY) 140 mmol/L (136-145); CREATININE 0.94 mg/dL (0.55-1.02); GLUCOSE 147 mg/dL (65-99); POTASSIUM 3.9 mmol/L (3.5-5.1); SODIUM 139 mmol/L (136-145); TOTAL PROTEIN 5.4 g/dL (6.4-8.2); eGFR NON BLACK RACES > 60 (>60)
[2022-12-02 07:22] LABS: ANISOCYTOSIS 2+; HYPOCHROMASIA SLIGHT; MICROCYTOSIS SLIGHT; PLATELET MORPHOLOGY COMMENT NORMAL (NORMAL)
[2022-12-02 07:23] LABS: BURR CELLS 2+
--- NOTE | 2022-12-02 07:55 | RAD ---
HISTORYSOB Relevant Clinical InformationSTUDYCHEST, 1 [id number]/2023FINDINGSThe trachea is midline. There is [id number] cardiomegaly. There is a left lower lobe radiopacity unchanged since prior, no evidence of pleural effusions or pneumothorax. No pulmonary edema.IMPRESSIONLeft lower lobe radiopacity atelectasis versus pneumonia unchanged since prior.Electronically signed by: Delia Masters (Dec 02, 2022 07:54:58)
[2022-12-02] MEDS: PULMICORT NEB TX 0.5 MG NEB SCH ×2 (08:41→20:12)
[2022-12-02] MEDS: PEPCID 20 MG VIAL 20 MG in NS 50 ML IV 50 ML IV SCH ×2 (09:07→20:27)
[2022-12-02] MEDS: ZYLOPRIM PO SCH (09:08)
[2022-12-02] MEDS: COLACE CAP 100 MG PO SCH ×2 (09:08→20:26)
[2022-12-02] MEDS: PROTONIX INJ 40 MG VIAL IVP SCH ×2 (09:08→20:28)
[2022-12-02] MEDS: ELIQUIS PO SCH ×2 (09:08→20:26)
[2022-12-02] MEDS: LEVAQUIN PREMIX IV 500 MG 500 MG/100 ML BAG IV SCH ×2 (09:09→10:33)
[2022-12-02] MEDS: MIRALAX POWDER (1 DOSE 17 G) PO SCH (09:10)
[2022-12-02] MEDS: MILK OF MAGNESIA PO SCH ×4 (09:10→20:27)
--- NOTE | 2022-12-02 11:59 | PCM.PROG ---
Progress Note - Progress Note for Day of Date of Exam: 12/02/22 - Subjective Subjective: IS CURRENTLY INPATIENT STATUS FOR TREATMENT OF PNEUMONIA, INTRACTABLE NAUSEA AND VOMITING, GENERALIZED WEAKNESS, POSTERIOR HEADACHE, AND SHORTNESS OF BREATH. SHE HAS A HISTORY OF MALIGNANT NEOPLASM OF THE BRAIN, GERD, RESTLESS LEGS, AND ANEMIA. TODAY, SHE IS ALERT AND ORIENTED, SITTING UP IN THE CHAIR ON MORNING ROUNDS. SHE REPORTS IMPROVEMENT IN NAUSEA AND HEADACHE. SHE ADMITS TO ONLY HAVING A MILD HEADACHE AT TIMES. SHE CONTINUES WITH GENERALIZED WEAKNESS AND INTERMITTENT SHORTNESS OF BREATH. SHORNTESS OF BREATH IS WORSE ON EXERTION. WHILE AMBULATING IN THE ROOM WITH PHYSICAL THERAPY YESTERDAY, HER SATURATIONS DROPPED TO 89% ON ROOM AIR. WHEN OXYGEN WAS REAPPLIED, SATURATIONS INCREASED TO THE 90s. PHYSICAL THERAPY REPORTS THAT SHE WAS MODERATELY WEAK ON AMBULATION WAS UNSTEADY. ON EXAMINATION, HEART IS REGULAR IN RATE AND RHYTHM. BILATERAL LUNGS ARE NOTED WITH DIMINISHED LUNG SOUNDS THROUGHOUT. ABDOMEN IS ROUND, SOFT, AND NON-TENDER WITH HYPERACTIVE BOWEL SOUNDS NOTED IN ALL QUADRANTS. WEAKNESS OF LOWER EXTREMITIES NOTED WITH TRACE EDEMA NOTED TO BLE. HER VITALS THIS MORNING ARE: 97.2-69-18-97%-136/80. LABS WERE OBTAINED. WBC 4.6, RBC 4.17, HGB 10.6, HCT 32.6, PLT COUNT 179, SODIUM 139, POTASSIUM 3.9, CHLORIDE 102, BUN 22, CREATININE 0.94, GLUCOSE 147, CALCIUM 8.2, AST 11, ALT 16, ALK PHOS 93, TOTAL PROTEIN 5.4, ALBUMIN 3.0. A CHEST XRAY WAS OBTAINED AND REVEALED: Left lower lobe radiopacity atelectasis versus pneumonia unchanged since prior. BRAIN MRI THAT WAS OBTAINED ON 11/26/22 SUGGESTED WORSENING OF DISEASE (MALIGNANT BRAIN TUMOR). WE CONSULTED YESTERDAY, WHO MADE SOME MEDICATION RECOMMENDATIONS. SHE IS CURRENTLY RECEIVING NORMAL SALINE AT 50 ML/HR, LEVAQUIN 500MG IV DAILY, PULMICORT NEBS BID, AND XOPENEX NEBS Q6H, PEPCID 20MG IV Q12H, DILAUDID 1MG IV Q4H PRN, DECADRON 4MG IV Q8H, ZOFRAN 8MG IV TID AC, PROTONIX 40MG IV BID, COLACE, MILK OF MAGNESIA, K-DUR 20MEQ DAILY, ZYLOPRIM 1000MG DAILY, ELIQIS 5MG BID, NEURONTIN 300MG TID, NORCO 10/325MG QID PRN, REQUIP 3MG HS, ALECTINIB 150MG HS, AND TRAZODONE 200MG HS. PHYSICAL THERAPY WILL CONTINUE TO WORK WITH HER TODAY. OTHERWISE, WE WILL FOLLOW UP WITH AM LABS AND CONTINUE TO MONITOR. TIME SPENT ON CLINICAL ASSESSMENT, REVIEWING LABS AND IMAGING, DECISION MAKING, AND DOCUMENTATION GREATER THAN 45 MINUTES. - Past Medical Family Social History Past Med/Fam/Surg Hx: No changes since H&P Allergies: Allergies albuterol Allergy (Verified 07/07/22 18:24) ANAPHALEXIS REACTION throat swells up - Review of Systems ROS: No change since H&P - Vital Signs and I&O's Vital Signs: Vital Signs Temperature 97.2 F Temperature 98.2 F Pulse Rate [Left] 69 Pulse Rate [Left] 51 Pulse Rate 83 Respiratory Rate 18 Respiratory Rate 18 Blood Pressure [Left Arm] 136/80 Blood Pressure [Left Arm] 171/80 O2 Sat by Pulse Oximetry 97 O2 Sat by Pulse Oximetry 97 O2 Sat by Pulse Oximetry 98 Intake and Output: Intake & Output 11/29/22 11/30/22 12/01/22 12/02/22 11:59 11:59 11:59 11:59 Intake Total 1144 / 1144 2787 / 2787 2728 / 2728 2589 / 2589 Output Total 520 / 520 Balance 1144 / 1144 2267 / 2267 2728 / 2728 2589 / 2589 - Physical Exam Oriented: Normal Eyes: Normal Ear: Normal Nose: Normal Throat: Normal Respiratory: Generalized, Diminished Cardiovascular: Normal : Normal Auscultation: Bowel Sounds: Normal Palpation: Normal Tenderness: Normal Skin: Normal Musculoskeletal: Back:Lumbar, Tender Psychiatric: Normal Mood Description: Calm Affect: Normal Speech Pattern: Clear, Appropriate - Laboratory and Diagnostics Result Diagrams: 12/02/22 05:13 12/02/22 05:13 Labs: Laboratory WBC 4.6 X10^3/uL (3.6-10.0) 12/02/22 05:13 RBC 4.17 X10^6/uL (3.5-5.4) 12/02/22 05:13 Hgb 10.6 g/dL (12.0-16.0) L 12/02/22 05:13 Hct 32.6 % (36.0-47.0) L 12/02/22 05:13 MCV 78.2 fL (80.0-100.0) L 12/02/22 05:13 MCH 25.5 pg (27.0-34.0) L 12/02/22 05:13 MCHC 32.5 g/dL (33.0-35.0) L 12/02/22 05:13 RDW 23.7 % (11.6-16.5) H 12/02/22 05:13 Plt Count 179 X10^3/uL (150.0-450.0) 12/02/22 05:13 Plt Count Comment Adequate (ADEQUATE) 12/02/22 05:13 MPV 10.7 fL (7.4-11.0) 12/02/22 05:13 Neut % (Auto) 86.9 % (42.0-75.0) H 12/02/22 05:13 Lymph % (Auto) 6.8 % (21.0-51.0) L 12/02/22 05:13 [place] % (Auto) 6.2 % (0.0-13.0) 12/02/22 05:13 Eos % (Auto) 0.0 % (0.9-2.9) L 12/02/22 05:13 Baso % (Auto) 0.1 % (0.2-1.0) L 12/02/22 05:13 Neut # (Auto) 4.0 x10^3/uL (2.2-4.8) 12/02/22 05:13 Lymph # (Auto) 0.3 X10^3/uL (1.3-2.9) L 12/02/22 05:13 [place] # (Auto) 0.3 x10^3/uL (0.3-0.8) 12/02/22 05:13 Eos # (Auto) 0.0 x10^3/uL (0.0-0.2) 12/02/22 05:13 Baso # (Auto) 0.0 X10^3/uL (0.0-0.1) 12/02/22 05:13 Absolute Nucleated RBC 0.0 /100WBC 12/02/22 05:13 Total Counted 100 11/28/22 05:18 Neutrophils % (Manual) 90 % (39-76) H 11/28/22 05:18 Lymphocytes % (Manual) 8 % (13-43) L 11/28/22 05:18 Monocytes % (Manual) 2 % (4-9) L 11/28/22 05:18 Plt Morphology Comment Normal (NORMAL) 12/02/22 05:13 RBC Morphology Abnormal (NORMAL) A 12/02/22 05:13 Hypochromasia Slight A 12/02/22 05:13 Anisocytosis 2+ A 12/02/22 05:13 Microcytosis Slight A 12/02/22 05:13 Ovalocytes Slight A 11/26/22 05:38 [place] Cells 2+ A 12/02/22 05:13 Sodium 139 mmol/L (136-145) 12/02/22 05:13 Corrected Sodium 140 mmol/L (136-145) 12/02/22 05:13 Potassium 3.9 mmol/L (3.5-5.1) 12/02/22 05:13 Chloride 102 mmol/L (98-107) 12/02/22 05:13 Carbon Dioxide 30.2 mmol/L (21-32) 12/02/22 05:13 BUN 22 mg/dL (7-18) H 12/02/22 05:13 Creatinine 0.94 mg/dL (0.55-1.02) 12/02/22 05:13 Est GFR (MDRD) Af Amer > 60 (>60) 12/02/22 05:13 Est GFR (MDRD) Non-Af > 60 (>60) 12/02/22 05:13 Glucose 147 mg/dL (65-99) H 12/02/22 05:13 POC Glucose (mg/dL) 95 mg/dL (65-99) 11/25/22 21:08 Calcium 8.2 mg/dL (8.5-10.1) L 12/02/22 05:13 Corrected Calcium 9.0 mg/dL (8.5-10.1) 12/02/22 05:13 Magnesium 2.2 mg/dL (2.0-2.9) 11/29/22 05:25 Total Bilirubin 0.30 mg/dL (0.2-1.0) 12/02/22 05:13 AST 11 Units/L (15-37) L 12/02/22 05:13 ALT 16 Units/L (12-78) 12/02/22 05:13 Alkaline Phosphatase 93 Units/L (46-116) 12/02/22 05:13 Total Protein 5.4 g/dL (6.4-8.2) L 12/02/22 05:13 Albumin 3.0 g/dL (3.4-5.0) L 12/02/22 05:13 Globulin 2.4 g/dL (2.5-4.5) L 12/02/22 05:13 Albumin/Globulin Ratio 1.3 Ratio (1.1-2.1) 12/02/22 05:13 Lipase 60 Units/L (73-393) L 11/25/22 17:19 Specimen Type Clean catch urine 11/25/22 16:45 Urine Color Dark yellow (YELLOW) 11/25/22 16:45 Urine Appearance Clear (CLEAR) 11/25/22 16:45 Urine pH 6.5 (5.0 - 8.0) 11/25/22 16:45 Ur Specific [place] 1.020 (1.000-1.030) 11/25/22 16:45 Urine Protein 1+ (NEGATIVE) 11/25/22 16:45 Urine Glucose (UA) Negative (NEGATIVE) 11/25/22 16:45 Urine Ketones Negative (NEGATIVE) 11/25/22 16:45 Urine Blood Negative (NEGATIVE) 11/25/22 16:45 Urine Nitrite Negative (NEGATIVE) 11/25/22 16:45 Urine Bilirubin Negative (NEGATIVE) 11/25/22 16:45 Urine Urobilinogen 1+ (NORMAL) 11/25/22 16:45 Ur Leukocyte Esterase Negative (NEGATIVE) 11/25/22 16:45 Urine RBC 0-2 /HPF (0-3) 11/25/22 16:45 Urine WBC 0-2 /HPF (0-5) 11/25/22 16:45 Ur Squamous Epith Cells Numerous /HPF (NEGATIVE) 11/25/22 16:45 Urine Bacteria 2+ /HPF (NEGATIVE) 11/25/22 16:45 Urine Mucus Many /HPF (NEGATIVE) 11/25/22 16:45 Ur Culture Indicated? No/not indicated 11/25/22 16:45 Resp Viral Panel (PCR) See scanned report 11/29/22 07:20 - Plan (1) Pneumonia Status: Acute Qualifiers: Pneumonia type: due to unspecified organism Laterality: left Lung location: lower lobe of lung Qualified Code(s): J18.9 - Pneumonia, unspecified organism Plan: NORMAL SALINE AT 50 ML/HR, DECADRON 4MG IV Q8H, LEVAQUIN 500MG IV BID, XOPENX NEBS Q6H, PULMICORT NEBS BID, PEPCID 20MG IV Q12H, DILAUDID 1MG IV Q4H PRN, ZOFRAN 8MG IV BEFORE MEALS, PROTONIX 40MG IV BID, K-DUR 20MEQ DAILY, ZYLOPRIM 1000MG DAILY, ELIQIS 5MG BID, NEURONTIN 300MG TID, NORCO 10/325MG QID PRN, REQUIP 3MG HS, ALECTINIB 150MG HS, AND TRAZODONE 200MG HS (2) Nausea & vomiting Status: Acute Qualifiers: Vomiting type: unspecified Qualified Code(s): R11.2 - Nausea with vomiting, unspecified Plan: IMPROVING (3) Generalized weakness Status: Acute (4) Headache Status: Acute Qualifiers: Headache type: unspecified Headache chronicity pattern: acute headache Intractability: intractable Qualified Code(s): R51.9 - Headache, unspecified Plan: IMPROVING (5) Shortness of breath Status: Acute (6) Constipation Status: Acute Qualifiers: Constipation type: unspecified constipation type Qualified Code(s): K59.00 - Constipation, unspecified Plan: COLACE 100MG BID, MILK OF MAGNESIA 15ML QID, MIRALAX 17G PO DAILY (7) H/O malignant neoplasm of brain Status: Chronic (8) GERD (gastroesophageal reflux disease) Status: Chronic Qualifiers: Esophagitis presence: esophagitis presence not specified Qualified Code(s): K21.9 - Gastro-esophageal reflux disease without esophagitis (9) Restless leg Status: Chronic (10) Anemia Status: Chronic Qualifiers: Anemia type: unspecified type Qualified Code(s): D64.9 - Anemia, unspec ified
[2022-12-02] MEDS ORDERED: VITAMIN B-12 INJ IM ONE (12:02)
[2022-12-02] MEDS: NS 1,000 ML IV 1,000 ML IV SCH ×2 (17:18→23:22)
[2022-12-02] MEDS: DESYREL PO SCH (20:26)
[2022-12-02] MEDS: REQUIP PO SCH (20:28)
[2022-12-03] MEDS: XOPENEX 1.25 MG/3 ML NEBULE NEB SCH ×3 (00:04→09:32)
[2022-12-03 04:35] VITALS: RESP 18
[2022-12-03] MEDS: NEURONTIN CAP 300 MG PO SCH (05:32)
[2022-12-03] MEDS: ZOFRAN INJ 4 MG VIAL IVP SCH (05:33)
[2022-12-03] MEDS: DECADRON INJ IVP SCH (05:35)
[2022-12-03 06:04] LABS: BASOPHILS % (AUTO) 0.1 % (0.2-1.0); HEMATOCRIT 32.1 % (36.0-47.0); HEMOGLOBIN 10.6 g/dL (12.0-16.0); LYMPHOCYTES # (AUTO) 0.3 X10^3/uL (1.3-2.9); LYMPHOCYTES % (AUTO) 5.4 % (21.0-51.0); MEAN CORPUSCULAR HEMOGLOBIN 25.8 pg (27.0-34.0); MEAN CORPUSCULAR VOLUME 78.1 fL (80.0-100.0); MEAN PLATELET VOLUME 10.1 fL (7.4-11.0); MONOCYTES # (AUTO) 0.3 x10^3/uL (0.3-0.8); NEUTROPHILS # (AUTO) 5.2 x10^3/uL (2.2-4.8); NEUTROPHILS % (AUTO) 88.5 % (42.0-75.0); PLATELET COUNT 179 X10^3/uL (150.0-450.0); RED BLOOD COUNT 4.11 X10^6/uL (3.5-5.4); RED CELL DISTRIBUTION WIDTH 23.9 % (11.6-16.5); WHITE BLOOD COUNT 5.8 X10^3/uL (3.6-10.0)
--- NOTE | 2022-12-03 06:07 | RAD ---
HISTORYSOB Relevant Clinical InformationSTUDYCHEST, 1 [id number]/2023FINDINGSThe trachea is midline. The cardiac silhouette is mildly enlarged.. There is persistent opacification within the left lung base due to atelectasis or consolidation. The bony thorax is unremarkable.IMPRESSIONMild cardiomegalyLeft basilar opacification due to atelectasis and/or consolidation unchanged from 12/02/2022.Electronically signed by: Dmitry Rojas (Dec 03, 2022 06:06:16)
[2022-12-03 06:21] LABS: ALANINE AMINOTRANSFERASE 17 Units/L (12-78); ALBUMIN 3.1 g/dL (3.4-5.0); ALKALINE PHOSPHATASE 87 Units/L (46-116); ASPARTATE AMINO TRANSFERASE 11 Units/L (15-37); BLOOD UREA NITROGEN 23 mg/dL (7-18); CALCIUM 8.4 mg/dL (8.5-10.1); CARBON DIOXIDE 32.8 mmol/L (21-32); CHLORIDE 101 mmol/L (98-107); COR CA(FOR HYPOALB) 9.1 mg/dL (8.5-10.1); COR NA(FOR HYPERGLY) 140 mmol/L (136-145); CREATININE 0.88 mg/dL (0.55-1.02); GLUCOSE 170 mg/dL (65-99); POTASSIUM 4.1 mmol/L (3.5-5.1); SODIUM 138 mmol/L (136-145); TOTAL PROTEIN 5.4 g/dL (6.4-8.2); eGFR NON BLACK RACES > 60 (>60)
[2022-12-03 06:29] LABS: ANISOCYTOSIS 2+; BURR CELLS 2+; HYPOCHROMASIA SLIGHT; MICROCYTOSIS SLIGHT; PLATELET MORPHOLOGY COMMENT NORMAL (NORMAL)
[2022-12-03] MEDS: CORTISPORIN OTIC SUSP EACH EAR SCH (06:31)
[2022-12-03] MEDS: COLACE CAP 100 MG PO SCH (08:47)
[2022-12-03] MEDS: PEPCID 20 MG VIAL 20 MG in NS 50 ML IV 50 ML IV SCH (08:47)
[2022-12-03] MEDS: ELIQUIS PO SCH (08:47)
[2022-12-03] MEDS: ZYLOPRIM PO SCH (08:48)
[2022-12-03] MEDS: PULMICORT NEB TX 0.5 MG NEB SCH (08:48)
[2022-12-03] MEDS: PROTONIX INJ 40 MG VIAL IVP SCH (09:19)
[2022-12-03] MEDS: MILK OF MAGNESIA PO SCH (09:19)
[2022-12-03] MEDS: LEVAQUIN PREMIX IV 500 MG 500 MG/100 ML BAG IV SCH (09:19)
[2022-12-03] MEDS: MIRALAX POWDER (1 DOSE 17 G) PO SCH (09:19)
[2022-12-03 09:25] VITALS: BP 147/68; TEMP 97.3
[2022-12-03 09:33] VITALS: PULSE 91; O2SAT 98
== END 2022-12-03 11:55 | disposition home or self-care (01) | DRG 194 ==
LOC: MED/SURG 15:52 → ER 15:52 → MED/SURG 20:48
PROVIDERS: ADMIT Internal Medicine; ATTEND Internal Medicine
DX: C79.31 Secondary malignant neoplasm of brain; D64.89 Other specified anemias; K21.9 Gastro-esophageal reflux disease without esophagitis; R11.2 Nausea with vomiting, unspecified; R51.9 Headache, unspecified; J13 Pneumonia due to Streptococcus pneumoniae; R53.1 Weakness; Z92.21 Personal history of antineoplastic chemotherapy; G25.81 Restless legs syndrome; R06.02 Shortness of breath; Z90.2 Acquired absence of lung [part of]; K59.00 Constipation, unspecified